=== PATIENT | female | born 1945 | race African-American/Black ===

== ENCOUNTER 2016-07-14 09:20 | Observation (INO) | payer MEDICARE, MEDICAID ==
[~2016-07-14] VITALS: Ht 160 cm; Wt 95.0 kg
[~2016-07-14 09:20] MED LIST: CARD360C PO; NAPR500 PO; NAPR500T PO; OMEP20TA PO; POTA-243 PO; POTA10CA PO; RISP0.5T28 SL; RISP2TAB2 PO; SIMV20TA PO; TAZT360C2 PO; TRIH2 PO; [UNRECOGNIZED DRUG - CODE] XX
[2016-07-14 09:22] VITALS: BP 135/69; PULSE 80; RESP 14; TEMP 98.1; O2SAT 96
[2016-07-14] MEDS ORDERED: SODIUM CHLOR 0.9% 1000 ML INJ 1,000 ML IV SCH (10:13)
[2016-07-14] MEDS ORDERED: SODIUM CHLORIDE 0.9% FLUSH 5 ML FLUSH IVF PRN (10:15)
--- NOTE | 2016-07-14 10:37 | RADRPT ---
EXAM DATE/TIME: 07/14/2016 10:34 [place] COMPARISON: No previous studies available for comparison. INDICATIONS : Vaginal and rectal bleeding. MEDICAL HISTORY : None. SURGICAL HISTORY : Cholecystectomy. ENCOUNTER: Initial ACUITY: 1 day PAIN SCORE: 0/10 LOCATION: Bilateral abdomen. FINDINGS: Supine view of the abdomen was performed. The abdominal bowel gas pattern is normal. There is stool in the colon. No abnormal dilatation is demonstrated. There are surgical clips in the right upper mariusz drant. There are calcified phleboliths deep in the pelvis.. The lung bases are clear. There is prima ry degenerative changes of the lumbar spine. CONCLUSION: Benign abdomen Tk Mattson MD on July 14, 2016 at 10:33 Board Certified Radiologist. This report was verified electronically.
[2016-07-14 10:52] LABS: HEMATOCRIT 29.6 % (35.0-46.0); MEAN CELL VOLUME 93.1 FL (80.0-100.0); MEAN CORPUSCULAR HEMOGLOBIN 30.8 PG (27.0-34.0); MEAN CORPUSCULAR HGB CONC 33.1 % (32.0-36.0); PLATELET COUNT 191 TH/MM3 (150-450); RED BLOOD COUNT 3.18 MIL/MM3 (4.00-5.30); RED CELL DISTRIBUTION WIDTH 13.6 % (11.6-17.2); REVIEW FLAG FINAL; WHITE BLOOD COUNT 4.8 TH/MM3 (4.0-11.0)
--- NOTE | 2016-07-14 10:54 | PD ---
HPI Chief Complaint: GI Complaint Time Seen by Provider: 10:13 Travel History International Travel<30 days: No Contact w/Intl Traveler<30days: No Traveled to known affect area: No History of Present Illness HPI 70-year-old female with a history of hypertension, hyperlipidemia, who presents today with complaints of vaginal bleeding and rectal bleeding since yesterday. The patient denies any previous history of such. She denies any abdominal pain. When asked about the blood, the patient reports it's dark red in color. The patient denies taking any blood thinners. She denies any shortness of breath, dizziness, lightheadedness. There are no other complaints at the time of my examination. PFSH Past Medical History Arthritis: Yes Anxiety: Yes Depression: No Heart Rhythm Problems: No Cancer: No Cardiovascular Problems: Yes High Cholesterol: Yes Chest Pain: No Congestive Heart Failure: No Cerebrovascular Accident: No Diminished Hearing: No Endocrine: No Gastrointestinal Disorders: Yes GERD: No Genitourinary: No Headaches: Yes Hiatal Hernia: No Hypertension: Yes Immune Disorder: No Musculoskeletal: Yes Neurologic: Yes Psychiatric: Yes Respiratory: No Migraines: No Seizures: No Ulcer: No Tetanus Vaccination: > 5 Years Influenza Vaccination: No ?: Not Menopausal: Yes Past Surgical History Cholecystectomy: Yes Other Surgery: No Social History Alcohol Use: No Tobacco Use: No Substance Use: No Allergies-Medications (Allergen,Severity, Reaction): Coded Allergies: Iodine (Verified Allergy, Mild, Swelling, 07/14/16) Reported Meds & Prescriptions Reported Meds & Active Scripts Active Omeprazole 20 Mg Tab 20 Mg PO DAILY Trihexyphenidyl (Trihexyphenidyl HCl) 2 Mg Tab 2 Mg PO TID Cardizem CD 24 HR (Diltiazem CD 24 HR) 360 Mg Caper 360 Mg PO DAILY Potassium Chloride ER (Potassium Chloride) 10 Meq Cap 10 Meq PO DAILY Simvastatin 20 Mg Tab 20 Mg PO DAILY Naproxen 500 Mg Tab 500 Mg PO BID PRN Risperdal M-Tab (Risperidone) 0.5 Mg Tab 0.5 Mg SL HS Review of Systems Except as stated in HPI: all other systems reviewed are Neg General / Constitutional: No: Fever, Chills Eyes: No: Blurred Vision HENT: No: Lightheadedness Cardiovascular: No: Chest Pain or Discomfort, Palpitations Respiratory: No: Shortness of Breath Gastrointestinal: Positive: Other, No: Nausea, Vomiting, Abdominal Pain Genitourinary: Positive: Vaginal Bleeding (reported dark red), No: Dysuria Musculoskeletal: No: Weakness, Pain Neurologic: No: Weakness, Headache Physical Exam Narrative GENERAL: Well-developed well-nourished female in no acute respiratory distress SKIN: Warm and dry. HEAD: Atraumatic. Normocephalic. EYES: No scleral icterus. No injection or drainage. ENT: No nasal bleeding or discharge. Mucous membranes pink and moist. NECK: Trachea midline. No JVD. CARDIOVASCULAR: Regular rate and rhythm. No murmur appreciated. RESPIRATORY: No accessory muscle use. Clear to auscultation. Breath sounds equal bilaterally. GASTROINTESTINAL: Abdomen soft, non-tender, nondistended. GENITOURINARY: MUSCULOSKELETAL: No obvious deformities. . Trace pretibial edema bilaterally. Patient reports this is chronic NEUROLOGICAL: Awake and alert. No obvious cranial nerve deficits. Motor grossly within normal limits. Normal speech. PSYCHIATRIC: Appropriate mood and affect; insight and judgment normal. Data Data Last Documented VS Vital Signs Date Time Temp Pulse Resp B/P Pulse Ox O2 Delivery O2 Flow Rate FiO2 07/14/16 13:18 73 18 137/73 99 Room Air 07/14/16 09:22 98.1 Orders Basic Metabolic Panel (Bmp) (07/14/16 10:13) Comprehensive Metabolic Panel (07/14/16 10:13) Prothrombin Time / Inr (Pt) (07/14/16 10:13) Act Partial Throm Time (Ptt) (07/14/16 10:13) Urinalysis - C+S If Indicated (07/14/16 10:13) Type And Screen (07/14/16 10:13) Abdomen, Kub Only (07/14/16 10:13) Ecg Monitoring (07/14/16 10:13) Iv Access Insert/Monitor (07/14/16 10:13) Oximetry (07/14/16 10:13) Sodium Chlor 0.9% 1000 Ml Inj (Ns 1000 M (07/14/16 10:13) Sodium Chloride 0.9% Flush (Ns Flush) (07/14/16 10:15) Cbc No Diff, Includes Plts (07/14/16 10:30) Place In Observation (07/14/16 ) Vital Signs (Adult) LARRY.QSHIFT (07/14/16 13:26) Activity/Adl Assessment PRN (07/14/16 13:26) Intake + Output LARRY.QSHIFT (07/14/16 13:26) Diet Npo (07/14/16 Lunch) Sodium Chlor 0.9% 1000 Ml Inj (Ns 1000 M (07/14/16 13:26) Sodium Chloride 0.9% Flush (Ns Flush) (07/14/16 13:30) Sodium Chloride 0.9% Flush (Ns Flush) (07/14/16 21:00) Ondansetron Inj (Zofran Inj) (07/14/16 13:30) Pantoprazole Inj (Protonix Inj) (07/14/16 13:30) Hgb & Hct (07/14/16 13:26) Hgb & Hct (07/14/16 21:26) Hgb & Hct (07/15/16 05:26) Hgb & Hct (07/15/16 13:26) Hgb & Hct (07/15/16 21:26) Hgb & Hct (07/16/16 05:26) Red Blood Cells (Rbc) (07/14/16 13:26) Basic Metabolic Panel (Bmp) (07/15/16 06:00) Consult Gastroenterology (07/14/16 ) Scd Bilateral/Knee High LARRY.BID (07/14/16 13:26) Pharmacologic Contraindication (07/14/16 13:26) ^ Other Nursing Orders (07/14/16 13:26) Labs Laboratory Tests Test 07/14/16 07/14/16 07/14/16 10:15 10:45 11:25 White Blood Count 4.8 TH/MM3 Red Blood Count 3.18 MIL/MM3 Hemoglobin 9.8 GM/DL Hematocrit 29.6 % Mean Corpuscular Volume 93.1 FL Mean Corpuscular Hemoglobin 30.8 PG Mean Corpuscular Hemoglobin 33.1 % Concent Red Cell Distribution Width 13.6 % Platelet Count 191 TH/MM3 Mean Platelet Volume 8.2 FL Sodium Level 144 MEQ/L Potassium Level 4.1 MEQ/L Chloride Level 113 MEQ/L Carbon Dioxide Level 25.6 MEQ/L Anion Gap 5 MEQ/L Blood Urea Nitrogen 20 MG/DL Creatinine 1.01 MG/DL Estimat Glomerular Filtration 65 ML/MIN Rate Random Glucose 90 MG/DL Calcium Level 8.7 MG/DL Total Bilirubin 0.3 MG/DL Aspartate Amino Transf 14 U/L (AST/SGOT) Alanine Aminotransferase 11 U/L (ALT/SGPT) Alkaline Phosphatase 63 U/L Total Protein 6.5 GM/DL Albumin 3.6 GM/DL Blood Type O POSITIVE Antibody Screen NEGATIVE Blood Bank Comment Urine Color YELLOW Urine Turbidity CLEAR Urine pH 5.0 Urine Specific [place] 1.023 Urine Protein NEG mg/dL Urine Glucose (UA) NEG mg/dL Urine Ketones NEG mg/dL Urine Occult Blood NEG Urine Nitrite NEG Urine Bilirubin NEG Urine Urobilinogen LESS THAN 2.0 MG/DL Urine Leukocyte Esterase NEG Urine RBC LESS THAN 1 /hpf Urine WBC 1 /hpf Urine Squamous Epithelial <1 /hpf Cells Urine Mucus FEW /lpf Microscopic Urinalysis Comment CULT NOT INDICATED Prothrombin Time 12.1 SEC Prothromb Time International 1.1 RATIO Ratio Activated Partial 24.5 SEC Thromboplast Time MDM Medical Decision Making Medical Screen Exam Complete: Yes Emergency Medical Condition: Yes Differential Diagnosis Upper versus lower GI bleed versus diarrhea versus Narrative Course 70-year-old female presents today with complaints of vaginal bleeding and rectal bleeding. Turns out that the patient is only bleeding from her rectum. There is no obvious vaginal bleeding on exam. The patient has obvious maroon- colored stools. She's been typed and screened. Her hemoglobin is 9.8. Patient was discussed with Dr. Wally Mata, on-call [facility] hospitalist , who agrees to admit the patient to his service. Diagnosis Primary Impression: Gastrointestinal bleeding, upper Additional Impression: Anemia Nahid Ruiz MD Jul 14, 2016 10:54
[2016-07-14 11:04] LABS: BLOOD, URINE NEG (NEG); COMMENT (UR) CULT NOT INDICATED; CULTURE IF INDICATED CULT NOT INDICATED; GLUCOSE,URINE NEG (NEG); KETONE, URINE NEG (NEG); MUCUS URINE FEW /lpf (OCC); NITRITE,URINE NEG (NEG); SQUAMOUS EPITHELIAL CELL URINE <1 /hpf (0-5); URINE COLOR YELLOW (YELLW/STRAW)
[2016-07-14 11:16] LABS: ALT (GPT) 11 U/L (10-53); ANION GAP 5 MEQ/L (5-15); AST (GOT) 14 U/L (15-37); BICARBONATE 25.6 MEQ/L (21.0-32.0); BLOOD UREA NITROGEN 20 MG/DL (7-18); CHLORIDE 113 MEQ/L (98-107); GLOMERULAR FILTRATION RATE 65 ML/MIN (>89); POTASSIUM 4.1 MEQ/L (3.5-5.1); SODIUM (NA) 144 MEQ/L (136-145)
[2016-07-14 11:18] LABS: ALKALINE PHOSPHATASE 63 U/L (45-117); TOTAL BILIRUBIN ADULT 0.3 MG/DL (0.2-1.0)
[2016-07-14 11:45] LABS: APTT (PATIENT) 24.5 SEC (24.3-30.1); INTERNATIONAL NORMALIZED RATIO 1.1 RATIO; PROTHROMBIN TIME - PATIENT 12.1 SEC (9.8-11.6)
[2016-07-14 12:58] VITALS: BP 157/74; PULSE 79; RESP 18; O2SAT 98
[2016-07-14 13:18] VITALS: BP 137/73; PULSE 73; RESP 18; O2SAT 99
[2016-07-14] MEDS ORDERED: SODIUM CHLORIDE 0.9% FLUSH 5 ML FLUSH IV PRN (13:30)
[2016-07-14] MEDS ORDERED: ONDANSETRON HCL 4 MG/2 ML VIAL IV PRN (13:30)
[2016-07-14] MEDS: SODIUM CHLOR 0.9% 1000 ML INJ 1,000 ML IV SCH (15:25)
[2016-07-14] MEDS: PANTOPRAZOLE SODIUM 40 MG VIAL IV SCH (15:26)
[2016-07-14 15:39] LABS: REVIEW FLAG FINAL
--- NOTE | 2016-07-14 15:44 | HHI.HP ---
[facility] No Primary Care Physician Admission Diagnosis Gi bleed, anemia , hx of ulcers, Diagnoses: Chief Complaint: I have blood in my stool Travel History International Travel<30 Days: No Contact w/Intl Traveler <30 Da: No Traveled to Known Affected Are: No History of Present Illness 70 years old female who presented to the ED with a 1 day complaining of rectal bleed, dark tarry with clots, patient denied having any previous history of GI bleed, no history of GI ulcers, she denied abdominal pain diarrhea or constipation, chest pain short of breath, headache or blurry vision, in the ED her hemoglobin was found to be 9.8, patient denied any family history of colon cancer. I got to see her stool which was black tarry liquidy Patient denied being on blood thinner but she takes BC powder excessively. Review of Systems All 10 systems reviewed and was positive for what is mentioned in history of present illness otherwise negative Past Family Social History Past Medical History Arthritis Coronary artery disease Headache Hypertension Past Surgical History Cholecystectomy Allergies: Coded Allergies: Iodine (Verified Allergy, Mild, Swelling, 07/14/16) Family History Reviewed patient Unaware of significant medical problem and her family Social History Denied tobacco alcohol or illicit drug abuse Physical Exam Vital Signs Vital Signs Date Time Temp Pulse Resp B/P Pulse Ox O2 Delivery O2 Flow Rate FiO2 07/14/16 13:18 73 18 137/73 99 Room Air 07/14/16 12:58 79 18 157/74 98 Room Air 07/14/16 09:22 98.1 80 14 135/69 96 Physical Exam GENERAL: This is a well-nourished, well-developed patient, in no apparent distress. SKIN: No rashes, warm and dry HEAD: Atraumatic. Normocephalic. EYES: Pupils equal round and reactive. Extraocular motions intact. No scleral icterus. ENT: Nose without bleeding, or drainage, Airway patent. NECK: Trachea midline. Supple CARDIOVASCULAR: Regular rate and rhythm without murmurs, gallops, or rubs. RESPIRATORY: Fair air entry bilaterally. No wheezes, rales, or rhonchi. GASTROINTESTINAL: Abdomen soft, non-tender, nondistended. Positive bowel sounds MUSCULOSKELETAL: Extremities without clubbing, cyanosis, or edema. Pedal pulses appreciated NEUROLOGICAL: Awake and alert. Moves all extremity. Normal speech.no focal neurological deficit Laboratory Laboratory Tests Test 07/14/16 07/14/16 07/14/16 07/14/16 10:15 10:45 11:25 13:35 White Blood Count 4.8 Red Blood Count 3.18 Hemoglobin 9.8 Hematocrit 29.6 Mean Corpuscular Volume 93.1 Mean Corpuscular Hemoglobin 30.8 Mean Corpuscular Hemoglobin 33.1 Concent Red Cell Distribution Width 13.6 Platelet Count 191 Mean Platelet Volume 8.2 Sodium Level 144 Potassium Level 4.1 Chloride Level 113 Carbon Dioxide Level 25.6 Anion Gap 5 Blood Urea Nitrogen 20 Creatinine 1.01 Estimat Glomerular Filtration 65 Rate Random Glucose 90 Calcium Level 8.7 Total Bilirubin 0.3 Aspartate Amino Transf 14 (AST/SGOT) Alanine Aminotransferase 11 (ALT/SGPT) Alkaline Phosphatase 63 Total Protein 6.5 Albumin 3.6 Blood Type O POSITIVE Antibody Screen NEGATIVE Blood Bank Comment Urine Color YELLOW Urine Turbidity CLEAR Urine pH 5.0 Urine Specific [place] 1.023 Urine Protein NEG Urine Glucose (UA) NEG Urine Ketones NEG Urine Occult Blood NEG Urine Nitrite NEG Urine Bilirubin NEG Urine Urobilinogen LESS THAN 2.0 Urine Leukocyte Esterase NEG Urine RBC LESS THAN 1 Urine WBC 1 Urine Squamous Epithelial <1 Cells Urine Mucus FEW Microscopic Urinalysis Comment CULT NOT INDICATED Prothrombin Time 12.1 Prothromb Time International 1.1 Ratio Activated Partial 24.5 Thromboplast Time Crossmatch Leukocyte-Reduced Red Blood Cells Test 07/14/16 15:15 Hemoglobin 9.0 Hematocrit 28.0 Result Diagram: 07/14/16 1515 07/14/16 1015 Imaging Last Impressions Abdomen X-Ray 07/14/16 1013 Signed Impressions: Service Date/Time: Thursday, July 14, 2016 10:34 - CONCLUSION: Benign abdomen Tk Mattson MD Assessment and Plan Assessment and Plan 70 years old female admitted with Acute rectal GIB Acute on chronic anemia hemoglobin 9.8 History of coronary artery disease Hypertension chronic essential History of chronic arthritis patient take BC powder DVT prophylaxis with SCD, chemical contraindication Plan: Admit for telemetry floor, iv fluid started Large-bore iv access Protonix iv started Serial H&H every 6 hours Type cross and match 2 units of PRBC if hemoglobin below 8, we need to aim for hemoglobin 10 with tenderness of coronary artery disease Consult GI Dr. Negron, appreciate his quick response, he examined the patient and decided on upper GI scope today this patient is nothing by mouth already Chemical DVT prophylaxis contraindication will apply SCD Resume her Cardizem with holding parameter Discussed Condition With Patient, ED physician GI Physician Certification 2 Midnight Certification Type: Admission for Inpatient Services Order for Inpatient Services The services are ordered in accordance with Medicare regulations or non- Medicare payer requirements, as applicable. In the case of services not specified as inpatient-only, they are appropriately provided as inpatient services in accordance with the 2-midnight benchmark. Estimated LOS (days): 2 days is the estimated time the patient will need to remain in the hospital, assuming treatment plan goals are met and no additional complications. Post-Hospital Plan: Not yet determined Wally Mata MD Jul 14, 2016 15:44
[2016-07-14 16:22] VITALS: BP 141/75
[2016-07-14] MEDS ORDERED: PROPOFOL 200 MG/20 ML AMP IV ONE (16:30)
--- NOTE | 2016-07-14 17:20 | MB ---
cc: TIMMY WEINBERG MD DATE OF CONSULTATION 07/14/16 1945 REASON FOR REFERRAL Anemia, GI bleed. HISTORY OF PRESENT ILLNESS Thank you for the consultation. A 70-year-old lady who has been doing okay until this morning when she started having significant bleeding rectally since yesterday, questionable vaginal bleed but mostly in the rectum. The patient denied any previous history. She has no abdominal pain. She takes BC powder excessively, according to her daughter. She had dark red color bloody stool. She denied any blood thinner, no other GI symptoms, never had any endoscopy or colonoscopy. She has some lightheadedness but no dizziness, no syncope PAST MEDICAL HISTORY 1. Arthritis, 2. Coronary artery disease. 3. Cholecystectomy. SOCIAL HISTORY No tobacco, drug or alcohol. ALLERGIES IODINE MEDICATIONS Reviewed in the chart. REVIEW OF SYSTEMS All 12-point point negative except HPI. PHYSICAL EXAMINATION GENERAL: Alert, oriented in no acute distress. VITAL SIGNS: Stable. HEENT: Pupils are round, reactive to light. NECK: Supple. CHEST: Clear to auscultation and percussion. CARDIAC: Regular rate and rhythm. ABDOMEN: Soft, morbid obesity. CYBER DEFENSE FORENSICS ANALYST: Vaginal bleeding. NEUROLOGIC: Stable. No focal abnormality. PSYCHIATRIC: Appropriate LABORATORY DATA White count 4.8, hemoglobin 9.8, platelets 191, INR 1.1, AST 14, ALT 11, BUN 20. Creatinine 1.01 IMAGING STUDIES KUB benign ASSESSMENT/PLAN A 70-year-old lady who has history of what looked like GI bleed and it could be a vaginal bleed also. The patient on heavy dose of BC powder. I need to do an upper endoscopy today on urgent basis to rule out peptic ulcer disease that is bleeding. I discussed with the patient the procedure and complication. If this is negative for any bleeding or ulcer, I would proceed to do flexible sigmoidoscopy to ensure that this is not old vaginal bleeding and that there is no lower GI bleed. Meanwhile, we will continue supportive care. Follow up H&H and give packed RBC as needed. MD ZAYRA Monet/ /3:34 PM /4:55 PM
[2016-07-14 17:42] VITALS: BP 135/60; PULSE 77; RESP 20; TEMP 96; O2SAT 96
[2016-07-14] MEDS ORDERED: PEG (High)/E-LYTE SOLN 4000 ML BTL PO ONE (18:00)
[2016-07-14] MEDS: SODIUM CHLORIDE 0.9% FLUSH 5 ML FLUSH IV SCH (20:44)
[2016-07-14 22:28] LABS: HEMATOCRIT 23.5 % (35.0-46.0); REVIEW FLAG FINAL
[2016-07-14 23:34] VITALS: BP 129/63; PULSE 78; RESP 18; TEMP 96.5; O2SAT 100
[2016-07-15] VITALS (13 sets, daily range): BP systolic 120–143; BP diastolic 58–69; PULSE 62–97; RESP 16–20; TEMP 96–98.8; O2SAT 96–100
[2016-07-15] MEDS: SODIUM CHLOR 0.9% 1000 ML INJ 1,000 ML IV SCH ×2 (03:45→16:06)
[2016-07-15 07:54] LABS: HEMATOCRIT 32.5 % (35.0-46.0); REVIEW FLAG FINAL
[2016-07-15 08:12] LABS: BICARBONATE 25.3 MEQ/L (21.0-32.0); POTASSIUM 4.2 MEQ/L (3.5-5.1)
[2016-07-15] MEDS: PRAVASTATIN SOD 40 MG TAB PO SCH (08:39)
[2016-07-15] MEDS: DILTIAZEM-CD 180 MG CAP ER PO SCH (08:39)
[2016-07-15] MEDS: PANTOPRAZOLE SODIUM 40 MG VIAL IV SCH (08:39)
[2016-07-15] MEDS: SODIUM CHLORIDE 0.9% FLUSH 5 ML FLUSH IV SCH ×2 (08:39→20:47)
--- NOTE | 2016-07-15 09:25 | HHI.PR ---
Subjective Remarks Follow up for GI bleeding. The patient reports feeling slightly better today but still she believes she still has some bleeding. MENU PLANNER at bedside just cleaned up the patient who states she had stools that were mixed clear and dark brown, looked like probable old blood, but no black or bright red stools. The patient denies any specific abdominal pains. Denies nausea/vomiting. Denies fevers/ chills. She admits to taking BC powder on a regular basis, discussed importance of stopping this medication. Objective Vitals Vital Signs Date Time Temp Pulse Resp B/P Pulse Ox O2 Delivery O2 Flow Rate FiO2 07/15/16 08:16 98.8 73 16 131/61 98 07/15/16 06:08 91 18 122/58 97 07/15/16 05:25 96.5 81 18 143/67 97 07/15/16 03:59 96.1 81 18 121/61 97 07/15/16 03:40 96.4 84 18 132/67 98 07/15/16 03:39 96.4 84 18 132/67 98 07/15/16 03:08 96.4 97 18 132/60 98 07/15/16 01:51 96.4 82 18 120/69 99 07/15/16 00:48 96.0 65 18 127/66 99 07/15/16 00:24 96.8 79 18 127/62 99 07/14/16 23:34 96.5 78 18 129/63 100 07/14/16 17:42 96.0 77 20 135/60 96 07/14/16 16:58 76 18 119/60 98 07/14/16 16:41 97.8 71 16 150/80 100 07/14/16 16:22 79 18 141/75 98 07/14/16 13:18 73 18 137/73 99 Room Air 07/14/16 12:58 79 18 157/74 98 Room Air 07/14/16 09:22 98.1 80 14 135/69 96 Result Diagram: 07/15/16 0742 07/15/16 0742 Imaging Last Impressions Abdomen X-Ray 07/14/16 1013 Signed Impressions: Service Date/Time: Thursday, July 14, 2016 10:34 - CONCLUSION: Benign abdomen Tk Mattson MD Objective Remarks GENERAL: Well-nourished, well-developed pleasant elderly female patient in [facility]. SKIN: Warm and dry. No rash. HEAD: Normocephalic. Atraumatic. EYES: Pupils equal and round. No scleral icterus. No injection or drainage. ENT: No nasal bleeding or discharge. Mucous membranes pink and moist. NECK: Supple. Trachea midline. CARDIOVASCULAR: Regular rate and rhythm. S1, S2 noted. No murmur appreciated. RESPIRATORY: No accessory muscle use. Clear to auscultation. Breath sounds equal bilaterally. GASTROINTESTINAL: Abdomen soft, non-tender, nondistended. Normoactive bowel sounds x4. MUSCULOSKELETAL: No obvious deformities. Extremities without clubbing, cyanosis , or edema. NEUROLOGICAL: Awake and alert. No obvious cranial nerve deficits. Motor grossly within normal limits. Normal speech. PSYCHIATRIC: Appropriate mood and affect; insight and judgment normal. Medications and IVs Current Medications Medications (Trade) Dose Ordered Sig/Drea Route Start Time Stop Time Status Last Admin (NS 1000 ml Inj) 1,000 ml @ 75 mls/hr [id number] IV 07/14/16 13:26 07/15/16 03:45 (NS Flush) 2 ml UNSCH PRN IV 07/14/16 13:30 (NS Flush) 2 ml BID IV 07/14/16 21:00 07/15/16 08:39 (Zofran Inj) 4 mg Q6H PRN IV 07/14/16 13:30 (Protonix Inj) 40 mg DAILY IV 07/14/16 13:30 07/15/16 08:39 (Cardizem Cd) 360 mg DAILY PO 07/15/16 09:00 07/15/16 08:39 (risperDAL M-TAB) 0.5 mg HS SL 07/14/16 21:00 07/14/16 20:54 (Pravachol) 40 mg DAILY PO 07/15/16 09:00 07/15/16 08:39 Urinary Catheter: No Vascular Central Line Catheter: No A/P Assessment and Plan 70-year-old female with history of CAD, HTN, headaches, arthritis, presents with rectal bleeding and dark tarry stools. GI bleeding: Likely secondary to BC powder use. Hemoglobin dropped from 9.8 to 7.7, s/p 2 units PRBC transfusion, hemoglobin now 10.8, continue to monitor H&H q8h. Transfuse if Hgb < 8.0. Give IV Protonix, IVF. GI consulted, emergent EGD and flex sigmoidoscopy 07/14 revealed gastritis, old blood in the colon, no active bleeding. Going for colonoscopy today. CAD/HTN/HLD: chronic, stable, continue patient's home meds including cardizem, statin. Arthritis: discussed discontinuing all NSAIDs. Outpatient f/up. DVT Prophylaxis: teds/SCDs. Avoid chemical prophylaxis with GI bleeding. Discussed with Dr. Bob. Discharge Planning Possible discharge today if colonoscopy unremarkable, Hgb stable, and patient tolerates oral intake. Attending Statement The exam, history, and the medical decision-making described in the above note were completed with the assistance of the mid-level provider. I reviewed and agree with the findings presented. I attest that I had a [id number] encounter with the patient on the same day, and personally performed and documented my assessment and findings in the medical record. Velma Hdez PA-C Jul 15, 2016 09:25 Elie Bob MD Jul 17, 2016 02:56
[2016-07-15] MEDS ORDERED: PROPOFOL 200 MG/20 ML AMP IV ONE (11:10)
[2016-07-15] MEDS ORDERED: ONDANSETRON HCL 4 MG/2 ML VIAL IV PUSH ONE (11:10)
[2016-07-15] MEDS ORDERED: EPINEPHrine HCL (1:10,000) 1 MG/10 ML SYRINGE SQ ONE (11:22)
[2016-07-15] MEDS ORDERED: DO NOT ADM ANY ANTICOAGULANT DRUGS XX PRN (11:35)
[2016-07-15 15:38] LABS: HEMATOCRIT 31.2 % (35.0-46.0); REVIEW FLAG FINAL
--- NOTE | 2016-07-15 19:31 | MR ---
cc: EUGENIO LAI M.D. DATE: 07/14/2016 DATE OF : 1945 PROCEDURE PERFORMED: Upper gastrointestinal endoscopy with biopsy and flexible sigmoidoscopy. ENDOSCOPIST: Eugenio Lai MD. INDICATIONS FOR THE PROCEDURE: 70-year-old lady who has bright red blood and dark blood per rectum. The patient take NSAIDS excessively. We need to do upper endoscopy for rule out peptic ulcer disease and a flexible sigmoidoscopy to document that she has rectal bleeding since she has also vaginal bleed. DESCRIPTION OF THE PROCEDURE IN DETAIL: After informing the patient about the procedure and complications, the consent was signed. The patient was placed on her left lateral decubitus. Adequate sedation was achieved by propofol. The scope was placed in the mouth advanced under video guidance to the second portion of the duodenum. The scope was drawn back to the stomach. Retroflexion was performed. Biopsy from antrum and lesser curve and then the scope drawn back without immediate complication. After that, a rectal exam was performed which was positive for blood. The scope was placed in the rectum, advanced under video guidance to the sigmoid. There was significant amount of bloody clots and bloody stool. I was not able to pass the scope beyond this point. The scope was drawn back without any immediate complication. FINDINGS: 1. Esophagus normal. 2. Stomach with minimal gastritis. Biopsy was done. 3. Duodenum normal. 4. No active bleeding from the upper GI tract. 5. The patient has significant blood in the stool, most likely either diverticular bleed or ischemia or other source such as malignancy. RECOMMENDATIONS: 1. Follow-up biopsy. 2. Prepare for colonoscopy tomorrow. 3. Watch for more bleeding. 4. Packed RBCs as needed. Thank you Dr. Mata for this referral. Eugenio Lai MD /LIVE /5:14 PM /7:23 PM
--- NOTE | 2016-07-15 21:59 | MR ---
cc: EUGENIO LAI MD DATE 07/15/13 [address] Fisher PROCEDURE Colonoscopy with bleeding control, ablation of bleeding diverticulum, clipping of bleeding diverticulum and injection. INDICATION A 70-year-old lady who has rectal bleeding, had upper endoscopy which was negative, has continued to bleed requiring blood transfusion PROCEDURE IN DETAIL After informing the patient about procedure and complication consent was signed. The patient was placed on her left lateral decubitus. Adequate sedation was achieved by propofol. Rectal exam was performed. Scope was placed in the rectum, advanced under video guidance to the cecum which was identified by the ileocecal valve and appendiceal orifice. The scope drawn back gradually and in the descending colon, there was a diverticulum which was actively bleeding. This was injected with 3 mL of epinephrine, did not stop the bleeding, cauterized gently with ablation with gold probe because take continued to bleed. Then I applied two clips and the bleeding stopped completely. The scope drawn back to the rectum. Retroflexion was performed then the scope drawn back without immediate complication. FINDINGS 1. Some blood throughout the colon, may obscure the vision or a small lesion. I tried to wash as much as possible. 2. Diffuse diverticulosis. 3. Active bleeding treated as above. RECOMMENDATIONS 1. Clear liquid. 2. CBC every 8 hours with packed RBC as needed. 3. If bleeding again, the patient will need angiogram with embolization. Eugenio Lai MD / /11:38 AM /9:44 PM
[2016-07-15 22:47] LABS: REVIEW FLAG FINAL
[2016-07-16 00:43] VITALS: BP 113/61; PULSE 58; RESP 20; TEMP 97.9; O2SAT 100
[2016-07-16] MEDS: SODIUM CHLOR 0.9% 1000 ML INJ 1,000 ML IV SCH (02:56)
[2016-07-16 04:31] VITALS: BP 155/65; PULSE 64; RESP 20; TEMP 97.6; O2SAT 98
[2016-07-16 08:10] LABS: HEMATOCRIT 29.2 % (35.0-46.0); REVIEW FLAG FINAL
[2016-07-16 08:12] VITALS: BP 118/65; PULSE 77; RESP 18; TEMP 97.6; O2SAT 92
--- NOTE | 2016-07-16 08:17 | HHI.PR ---
Subjective Remarks Follow up for GI bleeding. The patient s/p colonoscopy yesterday, revealed a bleeding diverticulum that was cauterized and clipped. The patient reports she has not had a BM or any more bleeding since her colonoscopy yesterday. She did have some lower abdominal cramping last night but that went away. Denies nausea/ vomiting. She tolerated her clear liquid diet last night. She has no other medical complaints at this time. Objective Vitals Vital Signs Date Time Temp Pulse Resp B/P Pulse Ox O2 Delivery O2 Flow Rate FiO2 07/16/16 04:31 97.6 64 20 155/65 98 07/16/16 00:43 97.9 58 20 113/61 100 07/15/16 20:40 98.2 70 20 128/64 100 07/15/16 16:00 98.5 70 16 131/62 100 07/15/16 12:20 98.7 62 16 140/63 96 07/15/16 12:00 128/72 Room Air 07/15/16 11:45 127/75 Nasal Cannula 2 07/15/16 11:35 98.6 66 14 122/75 99 Nasal Cannula 3 07/15/16 08:16 98.8 73 16 131/61 98 I/O 07/15/16 07/15/16 07/15/16 07/16/16 07/16/16 07/16/16 07:00 15:00 23:00 07:00 15:00 23:00 Intake Total 1160 ml Balance 1160 ml Intake Oral 10 ml IV Total 650 ml Other 500 ml # Voids 1 1 3 # Bowel Movements 1 Result Diagram: 07/16/16 0719 07/15/16 0742 Imaging Last Impressions Abdomen X-Ray 07/14/16 1013 Signed Impressions: Service Date/Time: Thursday, July 14, 2016 10:34 - CONCLUSION: Benign abdomen Tk Mattson MD Objective Remarks GENERAL: Well-nourished, well-developed pleasant elderly female patient in [facility]. SKIN: Warm and dry. No rash. HEENT: Normocephalic. Atraumatic. Pupils equal and round. No scleral icterus. No injection or drainage. Mucous membranes pink and moist. NECK: Supple. Trachea midline. CARDIOVASCULAR: Regular rate and rhythm. S1, S2 noted. No murmur appreciated. RESPIRATORY: No accessory muscle use. Clear to auscultation. Breath sounds equal bilaterally. GASTROINTESTINAL: Abdomen soft, non-tender, nondistended. Normoactive bowel sounds x4. MUSCULOSKELETAL: No obvious deformities. Extremities without clubbing, cyanosis , or edema. NEUROLOGICAL: Awake and alert. No obvious cranial nerve deficits. Motor grossly within normal limits. Normal speech. PSYCHIATRIC: Appropriate mood and affect; insight and judgment normal. Medications and IVs Current Medications Medications (Trade) Dose Ordered Sig/Drea Route Start Time Stop Time Status Last Admin (NS 1000 ml Inj) 1,000 ml @ 75 mls/hr [id number] IV 07/14/16 13:26 07/16/16 02:56 (NS Flush) 2 ml UNSCH PRN IV 07/14/16 13:30 (NS Flush) 2 ml BID IV 07/14/16 21:00 07/15/16 08:39 (Zofran Inj) 4 mg Q6H PRN IV 07/14/16 13:30 (Protonix Inj) 40 mg DAILY IV 07/14/16 13:30 07/15/16 08:39 (Cardizem Cd) 360 mg DAILY PO 07/15/16 09:00 07/15/16 08:39 (risperDAL M-TAB) 0.5 mg HS SL 07/14/16 21:00 07/15/16 20:51 (Pravachol) 40 mg DAILY PO 07/15/16 09:00 07/15/16 08:39 Miscellaneous Information ALL NURSING DEPARTME... UNSCH PRN XX 07/15/16 11:35 07/16/16 11:34 A/P Assessment and Plan 70-year-old female with history of CAD, HTN, headaches, arthritis, presents with rectal bleeding and dark tarry stools. GI bleeding: Likely secondary to BC powder use. Hemoglobin dropped from 9.8 to 7.7, s/p 2 units PRBC transfusion, rpt hemoglobin 10.8, continue to monitor H&H q8h. Transfuse if Hgb < 8.0. Give IV Protonix, IVF. GI consulted, emergent EGD and flex sigmoidoscopy 07/14 revealed gastritis, old blood in the colon, no active bleeding. Colonoscopy 07/15 revealed actively bleeding diverticulum that was cauterized and clipped with resolution of bleeding. Diet advanced to regular. GI cleared for discharge. CAD/HTN/HLD: chronic, stable, continue patient's home meds including cardizem, statin. Arthritis: discussed discontinuing all NSAIDs. Outpatient f/up. DVT Prophylaxis: teds/SCDs. Avoid chemical prophylaxis with GI bleeding. Discussed with Dr. Bob. Discharge Planning Discharge patient to home Condition on discharge: Improved Heart Healthy Diet as tolerated Ad Nivia activity Rx written: stop all NSAIDs (naproxen, BC powder) Follow-up with primary care physician and gastroenterology Attending Statement The exam, history, and the medical decision-making described in the above note were completed with the assistance of the mid-level provider. I reviewed and agree with the findings presented. I attest that I had a [id number] encounter with the patient on the same day, and personally performed and documented my assessment and findings in the medical record. Velma Hdez PA-C Jul 16, 2016 08:17 Elie Bob MD Jul 17, 2016 02:44
[2016-07-16 08:23] LABS: AUTOMATED NEUTROPHIL # 3.9 TH/MM3 (1.8-7.7); BASOPHIL # 0.1 TH/MM3 (0-0.2); BASOPHIL % 0.8 % (0.0-2.0); EOSINOPHIL # 0.1 TH/MM3 (0-0.4); EOSINOPHIL % 2.2 % (0.0-4.0); HEMATOCRIT 28.5 % (35.0-46.0); HEMO FLAGS DIFF FINAL; LYMPH % 27.7 % (9.0-44.0); LYMPHOCYTE # 1.8 TH/MM3 (1.0-4.8); MEAN CORPUSCULAR HEMOGLOBIN 31.1 PG (27.0-34.0); MEAN CORPUSCULAR HGB CONC 33.8 % (32.0-36.0); MONO % 7.9 % (0.0-8.0); NEUT % 61.4 % (16.0-70.0); PLATELET COUNT 144 TH/MM3 (150-450); RED CELL DISTRIBUTION WIDTH 15.4 % (11.6-17.2); WHITE BLOOD COUNT 6.3 TH/MM3 (4.0-11.0)
[2016-07-16 08:38] LABS: BICARBONATE 25.8 MEQ/L (21.0-32.0); POTASSIUM 3.7 MEQ/L (3.5-5.1)
[2016-07-16] MEDS: PANTOPRAZOLE SODIUM 40 MG VIAL IV SCH (08:47)
[2016-07-16] MEDS: SODIUM CHLORIDE 0.9% FLUSH 5 ML FLUSH IV SCH (08:47)
[2016-07-16] MEDS: DILTIAZEM-CD 180 MG CAP ER PO SCH (08:47)
[2016-07-16] MEDS: PRAVASTATIN SOD 40 MG TAB PO SCH (08:47)
--- NOTE | 2016-07-16 09:09 | HHI.GIFU ---
Subjective Remarks 70 yo female resting in bed comfortable, in no apparent distress. No rectal bleeding overnight per nurse. Objective Vitals I&O Vital Signs Date Time Temp Pulse Resp B/P Pulse Ox O2 Delivery O2 Flow Rate FiO2 07/16/16 08:12 97.6 77 18 118/65 92 07/16/16 04:31 97.6 64 20 155/65 98 07/16/16 00:43 97.9 58 20 113/61 100 07/15/16 20:40 98.2 70 20 128/64 100 07/15/16 16:00 98.5 70 16 131/62 100 07/15/16 12:20 98.7 62 16 140/63 96 07/15/16 12:00 128/72 Room Air 07/15/16 11:45 127/75 Nasal Cannula 2 07/15/16 11:35 98.6 66 14 122/75 99 Nasal Cannula 3 I/O 07/15/16 07/15/16 07/15/16 07/16/16 07/16/16 07/16/16 07:00 15:00 23:00 07:00 15:00 23:00 Intake Total 1160 ml Balance 1160 ml Intake Oral 10 ml IV Total 650 ml Other 500 ml # Voids 1 1 3 # Bowel Movements 1 Laboratory Laboratory Tests Test 07/15/16 07/15/16 07/16/16 07/16/16 15:11 22:37 07:19 08:05 Hemoglobin 10.4 9.1 9.5 9.6 Hematocrit 31.2 27.0 29.2 28.5 White Blood Count 6.3 Red Blood Count 3.10 Mean Corpuscular Volume 92.0 Mean Corpuscular Hemoglobin 31.1 Mean Corpuscular Hemoglobin 33.8 Concent Red Cell Distribution Width 15.4 Platelet Count 144 Mean Platelet Volume 7.8 Neutrophils (%) (Auto) 61.4 Lymphocytes (%) (Auto) 27.7 Monocytes (%) (Auto) 7.9 Eosinophils (%) (Auto) 2.2 Basophils (%) (Auto) 0.8 Neutrophils # (Auto) 3.9 Lymphocytes # (Auto) 1.8 Monocytes # (Auto) 0.5 Eosinophils # (Auto) 0.1 Basophils # (Auto) 0.1 CBC Comment DIFF FINAL Differential Comment Sodium Level 144 Potassium Level 3.7 Chloride Level 111 Carbon Dioxide Level 25.8 Anion Gap 7 Blood Urea Nitrogen 5 Creatinine 0.78 Estimat Glomerular Filtration 88 Rate Random Glucose 94 Calcium Level 8.0 Imaging Last Impressions Abdomen X-Ray 07/14/16 1013 Signed Impressions: Service Date/Time: Thursday, July 14, 2016 10:34 - CONCLUSION: Benign abdomen Tk Mattson MD Physical Exam HEENT: PERRLA Normocephalic; atraumatic; no jaundice. NECK: Neck is supple. Trachea midline. CHEST: CTA CARDIAC: RRR ABDOMEN: Soft, nondistended, nontender; no hepatosplenomegaly; Bowel sounds x4 quadrants EXTREMITIES: No edema. SKIN: Normal; no rash; no jaundice. NATUROPATHIC ONCOLOGY PROVIDER: A&O x 3. Assessment and Plan Plan ASSESSMENT -Diverticular bleed, s/p ablation and clipping of bleeding diverticulum and injection. No more rectal bleeding last night and today per nurse. Bleeding may be secondary to BC powder. Hemoglobin 9.6 and Hematocrit 28.5, which is stable. S/P 2 units PRBC transfusion yesterday. Transfuse if hemoglobin <8.0 Abdominal X -Ray 07/14/16-->Benign abdomen. PLAN -CBC q8h with packed RBC as needed -Advance diet as tolerated. -Cleared for discharge from a GI standpoint Patient seen and examined by Dr. Lai and myself and this note is written on his/her behalf. Abbey Taylor Jul 16, 2016 09:09
--- NOTE | 2016-07-16 09:54 | HHI.DCPOC ---
Discharge Care Plan Diagnosis: (1) GI bleeding Goals to Promote Your Health * To prevent worsening of your condition and complications * To maintain your health at the optimal level Directions to Meet Your Goals Take your medications as prescribed Follow your dietary instruction Follow activity as directed Keep your appointments as scheduled Take your immunizations and boosters as scheduled If your symptoms worsen call your PCP, if no PCP go to Urgent Care Center or Emergency Room Smoking is Dangerous to Your Health. Avoid second hand smoke Call the 24-hour hour crisis hotline for domestic abuse at Velma Hdez PA-C Jul 16, 2016 09:54
[2016-07-16 12:50] VITALS: BP 127/67; PULSE 56; RESP 18; TEMP 98.1; O2SAT 96
[2016-07-27] MEDS ORDERED: BATH/SHOWER SEA1 MI1 (13:28)
[2016-11-04] MEDS ORDERED: RISP0.5T28 SL (14:51)
== END 2016-07-16 16:16 | disposition home or self-care (01) ==
LOC: NEPE 09:20 → NEDA 13:42 → NEPGCP 17:06
PROVIDERS: ADMIT Internal Medicine; ATTEND Internal Medicine
DX: K57.91 Diverticulosis of intestine, part unspecified, without perforation or abscess with bleeding (principal); K29.70 Gastritis, unspecified, without bleeding; D64.9 Anemia, unspecified; N93.9 Abnormal uterine and vaginal bleeding, unspecified; I10 Essential (primary) hypertension; I25.10 Atherosclerotic heart disease of native coronary artery without angina pectoris; E78.5 Hyperlipidemia, unspecified
CPT/HCPCS: 00740; 00810; 36430; 43239; 45330; 45382; 45388; 45398; 74000; 80048; 80053; 81001; 85014; 85018; 85025; 85027; 85610; 85730; 86850; 86900; 86901; 86920; 88305; 88312; 96360; 99285; C9113; G0378; J0171; J2405; J7030; P9016

== ENCOUNTER 2016-11-27 08:16 | Emergency (ER) | payer MEDICARE, MEDICAID ==
[~2016-11-27] VITALS: Ht 165.1 cm; Wt 98.0 kg
[~2016-11-27 08:16] MED LIST changes: +BATH/SHOWER SEA1 MI1; -NAPR500 PO; -NAPR500T PO; -POTA-243 PO; -RISP2TAB2 PO; -TAZT360C2 PO; -[UNRECOGNIZED DRUG - CODE] XX
[2016-11-27 08:22] VITALS: BP 137/68; PULSE 72; RESP 17; TEMP 98.6; O2SAT 98
[2016-11-27] MEDS ORDERED: SODIUM CHLORIDE 0.9% FLUSH 10 ML FLUSH IVF PRN (08:30)
[2016-11-27 08:31] VITALS: RESP 16; O2SAT 98
[2016-11-27 08:58] LABS: AUTOMATED NEUTROPHIL # 2.6 TH/MM3 (1.8-7.7); BASOPHIL # 0.1 TH/MM3 (0-0.2); BASOPHIL % 1.1 % (0.0-2.0); EOSINOPHIL % 0.9 % (0.0-4.0); HEMO FLAGS DIFF FINAL; LYMPH % 31.6 % (9.0-44.0); LYMPHOCYTE # 1.4 TH/MM3 (1.0-4.8); MEAN CELL VOLUME 93.3 FL (80.0-100.0); MEAN CORPUSCULAR HEMOGLOBIN 29.4 PG (27.0-34.0); MEAN CORPUSCULAR HGB CONC 31.5 % (32.0-36.0); MONO % 8.6 % (0.0-8.0); NEUT % 57.8 % (16.0-70.0); PLATELET COUNT 216 TH/MM3 (150-450); RED BLOOD COUNT 3.75 MIL/MM3 (4.00-5.30); RED CELL DISTRIBUTION WIDTH 14.2 % (11.6-17.2); WHITE BLOOD COUNT 4.6 TH/MM3 (4.0-11.0)
--- NOTE | 2016-11-27 09:10 | PD ---
HPI Chief Complaint: Dizziness Time Seen by Provider: 09:06 Travel History International Travel<30 days: No Contact w/Intl Traveler<30days: No Traveled to known affect area: No History of Present Illness HPI 71-year-old female with history of hypertension, presents to the ER today with several days' history of fatigue and dizziness. She denies any chest pains, fevers, vomiting, diarrhea, abdominal pain, or any other symptoms. She states that she has noticed frequent urination in the last few days. Modifying Factors: None Associated Signs & Symptoms: Dizziness, frequent urination Risk Factors: None PFSH Past Medical History Arthritis: Yes Anxiety: Yes Depression: No Heart Rhythm Problems: No Cancer: No Cardiovascular Problems: Yes High Cholesterol: Yes Chest Pain: No Congestive Heart Failure: No Cerebrovascular Accident: No Diminished Hearing: No Endocrine: No Gastrointestinal Disorders: Yes GERD: No Genitourinary: No Headaches: Yes Hiatal Hernia: No Hypertension: Yes Immune Disorder: No Musculoskeletal: Yes Neurologic: Yes Psychiatric: Yes Respiratory: No Migraines: No Seizures: No Ulcer: No Tetanus Vaccination: > 5 Years Influenza Vaccination: No Menopausal: Yes Past Surgical History Cholecystectomy: Yes Other Surgery: Yes (gallbladder removal) Social History Alcohol Use: No (PT DENIES ) Tobacco Use: No Substance Use: No (PT DENIES) Allergies-Medications (Allergen,Severity, Reaction): Coded Allergies: Iodine (Verified Allergy, Mild, Swelling, 11/27/16) Reported Meds & Prescriptions Reported Meds & Active Scripts Active Risperdal M-Tab (Risperidone) 0.5 Mg Tab 0.5 Mg SL HS Omeprazole 20 Mg Tab 20 Mg PO DAILY Trihexyphenidyl (Trihexyphenidyl HCl) 2 Mg Tab 2 Mg PO TID Cardizem CD 24 HR (Diltiazem CD 24 HR) 360 Mg Caper 360 Mg PO DAILY Potassium Chloride ER (Potassium Chloride) 10 Meq Cap 10 Meq PO DAILY Simvastatin 20 Mg Tab 20 Mg PO DAILY Review of Systems Except as stated in HPI: all other systems reviewed are Neg Physical Exam Narrative GENERAL: Well-developed elderly -Stateless female patient currently in mild distress. Awake and oriented 3. Notable for mild tremulousness. SKIN: Focused skin assessment warm/dry. HEAD: Atraumatic. Normocephalic. EYES: Pupils equal and round. No scleral icterus. No injection or drainage. ENT: No nasal bleeding or discharge. Mucous membranes pink and moist. NECK: Trachea midline. No JVD. CARDIOVASCULAR: Regular rate and rhythm. No murmur appreciated. RESPIRATORY: No accessory muscle use. Clear to auscultation. Breath sounds equal bilaterally. GASTROINTESTINAL: Abdomen soft, non-tender, nondistended. Hepatic and splenic margins not palpable. MUSCULOSKELETAL: No obvious deformities. No clubbing. No cyanosis. No edema. NEUROLOGICAL: Awake and alert. No obvious cranial nerve deficits. Motor grossly within normal limits. Normal speech. PSYCHIATRIC: Appropriate mood and affect; insight and judgment normal. Data Data Last Documented VS Vital Signs Date Time Temp Pulse Resp B/P Pulse Ox O2 Delivery O2 Flow Rate FiO2 11/27/16 08:31 16 98 Room Air 11/27/16 08:25 72 11/27/16 08:22 98.6 137/68 Orders Electrocardiogram (11/27/16 ) Electrocardiogram (11/27/16 08:30) Complete Blood Count With Diff (11/27/16 08:30) Comprehensive Metabolic Panel (11/27/16 08:30) Ckmb (Isoenzyme) Profile (11/27/16 08:30) Troponin I (11/27/16 08:30) Urinalysis - C+S If Indicated (11/27/16 08:30) Ecg Monitoring (11/27/16 08:30) Iv Access Insert/Monitor (11/27/16 08:30) Oximetry (11/27/16 08:30) Sodium Chloride 0.9% Flush (Ns Flush) (11/27/16 08:30) Chest, Single Ap (11/27/16 09:06) Ct Brain W/O Iv Contrast(Rout) (11/27/16 09:06) Urine Culture (11/27/16 08:45) Sulfamet-Trimeth Ds 800-160 Mg (Bactrim (11/27/16 10:15) Labs Laboratory Tests Test 11/27/16 08:45 White Blood Count 4.6 TH/MM3 Red Blood Count 3.75 MIL/MM3 Hemoglobin 11.0 GM/DL Hematocrit 35.0 % Mean Corpuscular Volume 93.3 FL Mean Corpuscular Hemoglobin 29.4 PG Mean Corpuscular Hemoglobin 31.5 % Concent Red Cell Distribution Width 14.2 % Platelet Count 216 TH/MM3 Mean Platelet Volume 8.5 FL Neutrophils (%) (Auto) 57.8 % Lymphocytes (%) (Auto) 31.6 % Monocytes (%) (Auto) 8.6 % Eosinophils (%) (Auto) 0.9 % Basophils (%) (Auto) 1.1 % Neutrophils # (Auto) 2.6 TH/MM3 Lymphocytes # (Auto) 1.4 TH/MM3 Monocytes # (Auto) 0.4 TH/MM3 Eosinophils # (Auto) 0.0 TH/MM3 Basophils # (Auto) 0.1 TH/MM3 CBC Comment DIFF FINAL Differential Comment Urine Color YELLOW Urine Turbidity HAZY Urine pH 6.0 Urine Specific [place] 1.016 Urine Protein TRACE mg/dL Urine Glucose (UA) NEG mg/dL Urine Ketones NEG mg/dL Urine Occult Blood SMALL Urine Nitrite NEG Urine Bilirubin NEG Urine Urobilinogen LESS THAN 2.0 MG/DL Urine Leukocyte Esterase LARGE Urine RBC 5 /hpf Urine WBC 60 /hpf Urine Squamous Epithelial 17 /hpf Cells Urine Calcium Oxalate Crystals OCC /hpf Urine Bacteria MANY /hpf Urine Mucus FEW /lpf Microscopic Urinalysis Comment CULTURE INDICATED Sodium Level 143 MEQ/L Potassium Level 4.3 MEQ/L Chloride Level 109 MEQ/L Carbon Dioxide Level 27.7 MEQ/L Anion Gap 6 MEQ/L Blood Urea Nitrogen 18 MG/DL Creatinine 0.95 MG/DL Estimat Glomerular Filtration 70 ML/MIN Rate Random Glucose 96 MG/DL Calcium Level 8.6 MG/DL Total Bilirubin 0.4 MG/DL Aspartate Amino Transf 15 U/L (AST/SGOT) Alanine Aminotransferase 14 U/L (ALT/SGPT) Alkaline Phosphatase 74 U/L Total Creatine Kinase 89 U/L Troponin I LESS THAN 0.02 NG/ML Total Protein 6.6 GM/DL Albumin 3.3 GM/DL [facility] Medical Decision Making Medical Screen Exam Complete: Yes Emergency Medical Condition: Yes Medical Record Reviewed: Yes Interpretation(s) EKG shows NSR, no ST elevation or depression, and no arrhythmias. No significant T-wave inversions. Last [address] 11/27/16 0906 Signed Impressions: Service Date/Time: Sunday, November 27, 2016 09:38 - CONCLUSION: 1. No acute intracranial abnormality identified. 2. Mild cortical atrophy and microvascular ischemic demyelinative change. 3. Unchanged when compared to previous dated 03/05/16. Leonardo Shine MD Chest X-Ray 11/27/16 0906 Signed Impressions: Service Date/Time: Sunday, November 27, 2016 09:05 - CONCLUSION: 1. No acute cardiopulmonary findings. The heart is at the upper limits of normal in size. Leonardo Shine MD Laboratory Tests Test 11/27/16 08:45 Red Blood Count 3.75 MIL/MM3 (4.00-5.30) Hemoglobin 11.0 GM/DL (11.6-15.3) Mean Corpuscular Hemoglobin 31.5 % Concent (32.0-36.0) Monocytes (%) (Auto) 8.6 % (0.0-8.0) Urine Turbidity HAZY (CLEAR) Urine Occult Blood SMALL (NEG) Urine Leukocyte Esterase LARGE (NEG) Urine RBC 5 /hpf (0-3) Urine WBC 60 /hpf (0-5) Urine Calcium Oxalate Crystals OCC /hpf (NONE) Urine Bacteria MANY /hpf (NONE) Urine Mucus FEW /lpf (OCC) Chloride Level 109 MEQ/L (98-107) Estimat Glomerular Filtration 70 ML/MIN (>89) Rate Troponin I LESS THAN 0.02 NG/ML (0.02-0.05) Albumin 3.3 GM/DL (3.4-5.0) Differential Diagnosis Dizziness, urinary symptomsUTI versus sepsis versus metabolic issues versus dysrhythmias versus acute intracranial processes Narrative Course Patient has no focal neurological deficits. Lab work shows a significant UTI without signs of sepsis. At this point, I suspect that her UTI is causing some of her symptoms and my plan would be to treat her with antibiotics. She was given Bactrim in the ER and will be released with a prescription. She should follow-up with her primary care physician. Return for any worsening in symptoms as needed. Blood cultures are pending. The plan was discussed with the patient and her sister and they state understanding . Diagnosis Primary Impression: Weakness Additional Impression: UTI (urinary tract infection) Med/Other Pt SpecificInfo: Prescription(s) given Scripts Sulfamethoxazole-Trimethoprim (Bactrim DS)800-160 Mg Tab1 Tab PO BID #14 TAB Ref 0 Prov:Soni Rosario MD 11/27/16 Disposition: 01 DISCHARGE HOME Condition: Stable Soni Rosario MD Nov 27, 2016 09:10
[2016-11-27 09:14] LABS: ANION GAP 6 MEQ/L (5-15); AST (GOT) 15 U/L (15-37); BICARBONATE 27.7 MEQ/L (21.0-32.0); BLOOD UREA NITROGEN 18 MG/DL (7-18); CHLORIDE 109 MEQ/L (98-107); GLOMERULAR FILTRATION RATE 70 ML/MIN (>89); POTASSIUM 4.3 MEQ/L (3.5-5.1); SODIUM (NA) 143 MEQ/L (136-145)
[2016-11-27 09:15] LABS: ALT (GPT) 14 U/L (10-53)
[2016-11-27 09:18] LABS: ALKALINE PHOSPHATASE 74 U/L (45-117); TOTAL BILIRUBIN ADULT 0.4 MG/DL (0.2-1.0)
[2016-11-27 09:22] LABS: BACTERIA, URINE MANY /hpf; BLOOD, URINE SMALL (NEG); CALCIUM OXALATE CRYSTALS,URINE OCC /hpf; COMMENT (UR) CULTURE INDICATED; CULTURE IF INDICATED CULTURE INDICATED; GLUCOSE,URINE NEG (NEG); KETONE, URINE NEG (NEG); MUCUS URINE FEW /lpf (OCC); NITRITE,URINE NEG (NEG); SQUAMOUS EPITHELIAL CELL URINE 17 /hpf (0-5); URINE COLOR YELLOW (YELLW/STRAW)
[2016-11-27 09:27] LABS: CREATINE KINASE 89 U/L (26-192)
--- NOTE | 2016-11-27 09:41 | RADRPT ---
EXAM DATE/TIME: 11/27/2016 09:05 [facility] COMPARISON: CHEST SINGLE AP, March 05, 2016, 12:41. ABDOMEN KUB ONLY, July 14, 2016, 10:34. INDICATIONS : Dizzy. MEDICAL HISTORY : high blood pressure SURGICAL HISTORY : None. ENCOUNTER: Initial ACUITY: 1 day PAIN SCORE: 0/10 LOCATION: Bilateral chest FINDINGS: The heart is at the upper limits of normal in size. There is no significant hilar or mediastinal curly opathy. Lungs demonstrate chronic appearing interstitial changes but are otherwise clear. The visuali zed bony structures demonstrate degenerative changes within the left shoulder but are otherwise intac t. CONCLUSION: 1. No acute cardiopulmonary findings. The heart is at the upper limits of normal in size. Leonardo Shine MD on November 27, 2016 at 9:36 Board Certified Radiologist. This report was verified electronically.
--- NOTE | 2016-11-27 09:50 | RADRPT ---
EXAM DATE/TIME: 11/27/2016 09:38 [facility] COMPARISON: CT BRAIN W/O CONTRAST, March 05, 2016, 13:46. INDICATIONS : Dizziness RADIATION DOSE: 40.11 CTDIvol (mGy) MEDICAL HISTORY : Hypertension. Coronary artery disease. SURGICAL HISTORY : Cholecystectomy. ENCOUNTER: Initial ACUITY: 1 day PAIN SCALE: 0/10 LOCATION: cranial TECHNIQUE: Multiple contiguous axial images were obtained of the head. Using automated exposure control and adj ustment of the mA and/or kV according to patient size, radiation dose was kept as low as reasonably a chievable to obtain optimal diagnostic quality images. DICOM format image data is available electro nically for review and comparison. FINDINGS: CEREBRUM: The ventricles are at the upper limits of normal in size. Ventricular dilation appears in proportion to sulcal atrophy. There is decreased attenuation in the periventricular white matter most consistent with microvascular ischemic demyelinative change. No evidence of midline shift, mass lesion, hemorrh age or acute infarction. No extra-axial fluid collections are seen. POSTERIOR FOSSA: The cerebellum and brainstem are intact. The 4th ventricle is midline. The cerebellopontine angle i s unremarkable. EXTRACRANIAL: The visualized portion of the orbits is intact. SKULL: The calvaria is intact. No evidence of skull fracture. CONCLUSION: 1. No acute intracranial abnormality identified. 2. Mild cortical atrophy and microvascular ischemic demyelinative change. 3. Unchanged when compared to previous dated 03/05/16. Leonardo Shine MD on November 27, 2016 at 9:45 Board Certified Radiologist. This report was verified electronically.
[2016-11-27] MEDS ORDERED: BACT800T5 PO (10:05)
[2016-11-27] MEDS ORDERED: SULFAMETHOXAZOLE-TRIMETHOPRIM DS 800-160 MG TAB PO ONE (10:15)
[2016-11-27 10:17] VITALS: BP 130/76; TEMP 97.9
--- NOTE | 2016-11-27 13:22 | EKG ---
Date Performed: 11/27/2016 Time Performed: 08:47:57 PTAGE: 71 years EKG: Sinus rhythm NORMAL ECG Compared to prior tracing no significant change PREVIOUS TRACING : 03/05/2016 18.10 DOCTOR: Fransisco Briceño Interpretating Date/Time 11/27/2016 13:20:22
[2016-11-30] MEDS ORDERED: NAPR500T PO (15:35)
== END 2016-11-27 10:17 | disposition home or self-care (01) ==
LOC: NEPC 08:16
DX: R53.1 Weakness (principal); N39.0 Urinary tract infection, site not specified; R53.83 Other fatigue; R42 Dizziness and giddiness; R35.0 Frequency of micturition; I10 Essential (primary) hypertension; E78.00 Pure hypercholesterolemia, unspecified; F41.9 Anxiety disorder, unspecified; Z79.899 Other long term (current) drug therapy
CPT/HCPCS: 70450; 71010; 80053; 81001; 82550; 84484; 85025; 87086; 93005; 99285

== ENCOUNTER 2018-04-03 07:36 | Observation (INO) ==
[2018-04-03] MEDS ORDERED: Sod Chloride 0.9% Inj 1,000 ML IV.SIG ONE (08:12)
--- NOTE | 2018-04-03 08:20 | ED ---
HPI General Chief complaint: GI Bleed Stated complaint: Rectal bleeding Time Seen by Provider: 04/03/18 08:06 Source: patient Mode of arrival: EMS Limitations: no limitations History of Present Illness HPI Narrative: Patient is a pleasant 72-year-old -[place] female with past medical history of arthritis, coronary artery disease, headache, hypertension, cholecystectomy,who presents the emergency room with complaints of rectal bleeding. Patient reports that she was having a bowel movement today and began to have rectal bleeding. Patient reports that the blood is bright red but also dark in color. Reports that the blood is just leaking out of her rectum down her legs. Patient reports history of GI bleed in the past, reports that she had a colonoscopy 1 year ago which she does not remember the results of the colonoscopy. Patient reports that she does not follow-up with a sales relationship manager, patient currently is not taking any anticoagulants. Patient denies any abdominal pain, denies any nausea or vomiting or weakness. Patient reports that she feels fine except for this rectal bleeding. Related Data Home Medications Medication Instructions Recorded Confirmed potassium chloride 10 meq PO DAILY 04/03/18 04/03/18 risperidone 0.5 mg PO HS 04/03/18 04/03/18 trihexyphenidyl 2 mg PO TID 04/03/18 04/03/18 Allergies Allergy/AdvReac Type Severity Reaction Status Date / Time iodine Allergy Mild Swelling Verified 04/03/18 08:09 potassium iodide Allergy Mild Swelling Verified 04/03/18 08:09 povidone-iodine Allergy Mild Swelling Verified 04/03/18 08:09 sodium iodide Allergy Mild Swelling Verified 04/03/18 08:09 sodium iodide Allergy Mild Swelling Verified 04/03/18 08:09 Review of Systems ROS: all other systems reviewed are negative PMFSH History History Provided By: Patient Medical History Medical History Coronary artery disease (Acute) Depression (Acute) Tremor (Acute) Surgical History Surgical History No history of previous surgery (Acute) Social History Social History Second Hand Smoke Exposure: No Smoking Status: Never smoker How Often Do You Have a Drink Containing Alcohol: Never Recent Travel in [facility] within the Last 8 Weeks: No Recent Out of Country Travel within the Last 8 Weeks: No Exam Narrative Exam Narrative: GENERAL: Mild distress SKIN: Focused skin assessment warm/dry. HEAD: Atraumatic. Normocephalic. EYES: Pupils equal and round. No scleral icterus. No injection or drainage. ENT: No nasal bleeding or discharge. Mucous membranes pink and moist. NECK: Trachea midline. No JVD. CARDIOVASCULAR: Regular rate and rhythm. No murmur appreciated. RESPIRATORY: No accessory muscle use. Clear to auscultation. Breath sounds equal bilaterally. GASTROINTESTINAL: Abdomen soft, non-tender, nondistended. Hepatic and splenic margins not palpable. RECTAL EXAM: performed with RN at bedside - patient with grossly heme positive melanotic stool MUSCULOSKELETAL: No obvious deformities. No clubbing. No cyanosis. No edema. NEUROLOGICAL: Awake and alert. No obvious cranial nerve deficits. Motor grossly within normal limits. Normal speech. PSYCHIATRIC: Appropriate mood and affect; insight and judgment normal. Course Initial Documented Vital Signs Temperature 98.4 F 04/03/18 08:11 Pulse Rate 95 H 04/03/18 08:11 Respiratory Rate 16 04/03/18 08:11 Blood Pressure 144/80 H 04/03/18 08:11 Pulse Oximetry 97 04/03/18 08:11 Last Documented Vital Signs Temperature 98.4 F 04/03/18 08:11 Pulse Rate 86 04/03/18 11:00 Respiratory Rate 18 04/03/18 11:00 Blood Pressure 138/85 04/03/18 11:00 Pulse Oximetry 99 04/03/18 11:00 Medical Decision Making MDM Narrative Medical decision making narrative: During the course of the patients emergency department visit, the patients history, examination, and differential diagnosis were reviewed with the patient. The patient was placed on a laboratory monitor with oximetry and frequent blood pressure monitoring. The patient had an IV access obtained and blood work sent for analysis. The patient was initially provided IVF Patient with typed and screened given her rectal bleeding Previous records were reviewed, patient had an EGD as well as a flex sig by Dr. Lai on July 14, 2016. This showed a normal esophagus, stomach with minimal gastritis, duodenum was normal, there is no active bleeding from the upper GI tract. Patient also had a colonoscopy during that admission and was found to have a bleeding diverticulum that was cauterized and clips after she had a colonoscopy inpatient. Patient with most likely a bleeding diverticulum, CT of the abdomen pelvis without contrast ordered to evaluate for possible diverticulitis. Ultimately, patient will require admission to the hospital for further workup of her GI bleeding. The patients laboratory studies were reviewed and remarkable for hgb 10.7, repeat hgb 9.9 CT reviewed Patient require admission the hospital for workup of GI bleed with serial H&H' s. Case reviewed with Dr. sneed who accepts her to his service. Medical Screen Exam Complete: Yes Emergency Medical Condition: Yes Differential Diagnosis Differential Diagnosis: GI bleeding, gastric ulcer, bleeding diverticulum, diverticulitis, anemia, hemorrhoids Medical Records Medical records reviewed: Yes I reviewed the patient's medical records. Lab Data Lab results reviewed: Yes I reviewed the patient's lab results. Result diagrams: 04/03/18 11:20 04/03/18 08:30 Lab Results 04/03/18 04/03/18 04/03/18 Range/Units 08:30 08:30 08:30 WBC 5.9 (4.0-11.0) th/mm3 RBC 3.38 L (4.00-5.30) mil/mm3 Hgb 10.7 L (11.6-15.3) gm/dL Hct 33.8 L (35.0-46.0) % MCV 100.2 H (80.0-100.0) fL MCH 31.6 (27.0-34.0) pg MCHC 31.5 L (32.0-36.0) % RDW 14.8 (11.6-17.2) % Plt Count 200 (150-450) th/mm3 MPV 7.7 (7.0-11.0) fL Neut % (Auto) 59.8 (16.0-70.0) % Lymph % (Auto) 28.5 (9.0-44.0) % [place] % (Auto) 9.8 H (0.0-8.0) % Eos % (Auto) 1.1 (0.0-4.0) % Baso % (Auto) 0.8 (0.0-2.0) % Neut # (Auto) 3.5 (1.8-7.7) th/mm3 Lymph # (Auto) 1.7 (1.0-4.8) th/mm3 [place] # (Auto) 0.6 (0.0-0.9) th/mm3 Eos # (Auto) 0.1 (0.0-0.4) th/mm3 Baso # (Auto) 0.0 (0.0-0.2) th/mm3 WBC Differential . Differential Comment Auto diff final PT (9.8-11.6) sec INR Ratio APTT (23.4-31.7) sec Sodium 143 (136-145) meq/L Potassium 3.8 (3.5-5.1) meq/L Chloride 112 H (98-107) meq/L Carbon Dioxide 23.1 (21.0-32.0) meq/L Anion Gap 8 (5-15) meq/L BUN 17 (7-18) mg/dL Creatinine 0.95 (0.50-1.00) mg/dL Estimated GFR 70 L (>89) mL/min Random Glucose 99 (74-106) mg/dL Calcium 8.7 (8.5-10.1) mg/dL Total Bilirubin 0.4 (0.2-1.0) mg/dL AST 12 L (15-37) U/L ALT 13 (10-53) U/L Alkaline Phosphatase 79 (45-117) U/L Total Protein 6.9 (6.4-8.2) g/dL Albumin 3.4 (3.4-5.0) g/dL Blood Type O Positive Antibody Screen Negative 04/03/18 04/03/18 Range/Units 09:05 11:20 WBC (4.0-11.0) th/mm3 RBC (4.00-5.30) mil/mm3 Hgb 9.9 L (11.6-15.3) gm/dL Hct 31.1 L (35.0-46.0) % MCV (80.0-100.0) fL MCH (27.0-34.0) pg MCHC (32.0-36.0) % RDW (11.6-17.2) % Plt Count (150-450) th/mm3 MPV (7.0-11.0) fL Neut % (Auto) (16.0-70.0) % Lymph % (Auto) (9.0-44.0) % [place] % (Auto) (0.0-8.0) % Eos % (Auto) (0.0-4.0) % Baso % (Auto) (0.0-2.0) % Neut # (Auto) (1.8-7.7) th/mm3 Lymph # (Auto) (1.0-4.8) th/mm3 [place] # (Auto) (0.0-0.9) th/mm3 Eos # (Auto) (0.0-0.4) th/mm3 Baso # (Auto) (0.0-0.2) th/mm3 WBC Differential Differential Comment PT 11.4 (9.8-11.6) sec INR 1.1 Ratio APTT 27.1 (23.4-31.7) sec Sodium (136-145) meq/L Potassium (3.5-5.1) meq/L Chloride (98-107) meq/L Carbon Dioxide (21.0-32.0) meq/L Anion Gap (5-15) meq/L BUN (7-18) mg/dL Creatinine (0.50-1.00) mg/dL Estimated GFR (>89) mL/min Random Glucose (74-106) mg/dL Calcium (8.5-10.1) mg/dL Total Bilirubin (0.2-1.0) mg/dL AST (15-37) U/L ALT (10-53) U/L Alkaline Phosphatase (45-117) U/L Total Protein (6.4-8.2) g/dL Albumin (3.4-5.0) g/dL Blood Type Antibody Screen Imaging Data Attestation: I personally reviewed and interpreted this imaging study as follows : Radiologist's impression: Abdomen/Pelvis CT 04/03/18 08:12 CONCLUSION: 1. I do not see evidence for diverticulitis. 2. Do not see etiology for the bright red blood per rectum. 3. Large midline abdominal hernia containing bowel. Discharge Plan Discharge Disposition Patient Disposition: 30 Still Patient Discharge Condition Condition: Fair Discharge Details Diagnosis: Acute GI bleeding Physicians Team ED Provider: Guadalupe Brown Primary Care Provider: Gay Vo Rxs /Orders / Referrals /Forms Prescriptions: No Action potassium chloride 10 mEq Capsule, Extended Release 10 meq PO DAILY RF: 0 trihexyphenidyl 2 mg Tablet 2 mg PO TID RF: 0 risperidone 0.5 mg Tablet,Disintegrating 0.5 mg PO HS RF: 0 Discharge Interventions Interventions: Vital Signs Last Done: 04/03/18 11:00 Status ED Status: Pending Admission
[2018-04-03 08:43] LABS: Baso % (Auto) 0.8 % (0.0-2.0); Eos # (Auto) 0.1 th/mm3 (0.0-0.4); Eos % (Auto) 1.1 % (0.0-4.0); Hematocrit 33.8 % (35.0-46.0); Hemoglobin 10.7 gm/dL (11.6-15.3); Lymph # (Auto) 1.7 th/mm3 (1.0-4.8); Lymph % (Auto) 28.5 % (9.0-44.0); Mean Corpuscular HGB Conc 31.5 % (32.0-36.0); Mean Corpuscular Hemoglobin 31.6 pg (27.0-34.0); Mean Corpuscular Volume 100.2 fL (80.0-100.0); Mean Platelet Volume 7.7 fL (7.0-11.0); Mono # (Auto) 0.6 th/mm3 (0.0-0.9); Mono % (Auto) 9.8 % (0.0-8.0); Neut # (Auto) 3.5 th/mm3 (1.8-7.7); Neut % (Auto) 59.8 % (16.0-70.0); Platelet Count 200 th/mm3 (150-450); Red Blood Count 3.38 mil/mm3 (4.00-5.30); Red Cell Distribution Width 14.8 % (11.6-17.2); White Blood Count 5.9 th/mm3 (4.0-11.0)
[2018-04-03 09:09] LABS: Alanine Aminotransferase 13 U/L (10-53); Albumin 3.4 g/dL (3.4-5.0); Anion Gap 8 meq/L (5-15); Aspartate Aminotransferase 12 U/L (15-37); Blood Urea Nitrogen 17 mg/dL (7-18); Calcium 8.7 mg/dL (8.5-10.1); Carbon Dioxide 23.1 meq/L (21.0-32.0); Chloride 112 meq/L (98-107); Glomerular Filtration Rate 70 mL/min (>89); Glucose,Random 99 mg/dL (74-106); Potassium 3.8 meq/L (3.5-5.1); Sodium 143 meq/L (136-145)
[2018-04-03 09:12] LABS: Alkaline Phosphatase 79 U/L (45-117); Total Protein 6.9 g/dL (6.4-8.2)
[2018-04-03 09:40] LABS: Activated Partial Thrombo Time 27.1 sec (23.4-31.7); INR 1.1 Ratio
[2018-04-03 09:41] LABS: Prothrombin Time 11.4 sec (9.8-11.6)
[2018-04-03 11:37] LABS: Hematocrit 31.1 % (35.0-46.0); Hemoglobin 9.9 gm/dL (11.6-15.3)
--- NOTE | 2018-04-03 12:14 | CT ---
EXAM DATE: 04/03/2018 10:03 AM EST AGE/SEX: 72 years / Female INDICATIONS: Diverticulitis. Bright red blood from rectum. CLINICAL DATA: This is the patient's initial encounter. Patient reports that signs and symptoms have been present for 1 day and indicates a pain score of 0/10. MEDICAL/SURGICAL HISTORY: . Coronary artery disease. None. RADIATION DOSE: 16.48 CTDI (mGy) COMPARISON: [facility] [place], CT ABDOMEN & PELVIS W/O CONTRAST, 09/19/2014. . TECHNIQUE: Multiple contiguous axial images were obtained through the abdomen. Images were obtained using multiple row detector helical technique. Using automated exposure control and adjustment of the mA and/or kV according to patient size, radiation dose was kept as low as reasonably achievable to o btain optimal diagnostic quality images. DICOM format image data is available electronically for rev iew and comparison. FINDINGS: Minimal parenchymal changes both lung bases with mild cardiomegaly. The liver is free of focal defects. Gallbladder surgically absent. Spleen and pancreas are unremarkable. Both adrenal glands are prominent without mass The right and left kidneys unremarkable Large midline 6 cm abdominal hernia containing small bowel without signs of incarceration. The pelvis is a large fibroid uterus. There are minimal diverticuli in the sigmoid colon without dive rticulitis. Perirectal tissues are unremarkable There is no ascites or adenopathy Review of bone windows reveals only degenerative changes. CONCLUSION: 1. I do not see evidence for diverticulitis. 2. Do not see etiology for the bright red blood per rectum. 3. Large midline abdominal hernia containing bowel. Electronically signed by: Ray Shine MD 04/03/2018 12:13 PM EST
[2018-04-03] MEDS: Pantoprazole Inj 40 MG Vial IV.PUSH ONE ×2 (13:51→13:56)
[2018-04-03] MEDS: Pantoprazole Inj 80 MG in Sodium Chlor 0.9% Inj 100 ML IV.CONT SCH ×2 (13:55→23:50)
--- NOTE | 2018-04-03 14:29 | P.HP ---
History of Present Illness Primary Care Physician: Gay Vo MD, R2 Chief Complaint: Bright red blood per rectum History of Present Illness: 72-year-old -Thai female with a past medical history of hypertension , CAD, arthritis and currently taking naproxen presented to the ED for evaluation of an acute onset of bright red blood per rectum times several episode this morning. In the ED, patient continued to have multiple stool described as bright red blood per rectum. Patient states over the course of the past 3-4 days she has been taking more than the usual dose of naproxen secondary to knee and hip as well as back pain. She started taking 500 mg 3-4 times a day as opposed to twice daily. On admission H&H was 10.7/32.8. Patient was admitted back in June 2016 secondary to GI bleed for which gastroenterology was consulted and patient underwent emergent EGD followed by colonoscopy. Currently she reports some shortness of breath however denies any chest pain. She has no hematuria, hemoptysis or hematemesis. Review of Systems All other systems reviewed negative except as stated in HPI PMFSH - History History Provided By: Patient - Medical History Medical History: Medical History (Last Reviewed 04/03/18 @ 08:16 by Guadalupe Brown) Depression Tremor Coronary artery disease - Surgical History Surgical History: Surgical History (Last Reviewed 04/03/18 @ 08:16 by Guadalupe Brown) No history of previous surgery - Family History Family History: Family History (Last Updated 04/03/18 @ 14:29 by Calin Nichols MD) Other Breast cancer - Tobacco History Second Hand Smoke Exposure: No Smoking Status: Never smoker - Alcohol History How Often Do You Have a Drink Containing Alcohol: Never - Travel History Recent Travel in the [place] Within the Last 8 Weeks: No Recent Travel Out of the Country Within the Last 8 Weeks: No - Immunization History Tetanus Immunization: Unsure Medications and Allergies Active Medications: Active Medications Acetaminophen (Tylenol) 650 mg PO Q4H PRN PRN Reason: Temp > 100.4 Al Hydroxide/Mg Hydroxide (Milk Of Magnesia Liq) 30 ml PO Q12H PRN PRN Reason: Mild Constipation Pantoprazole Sodium 80 mg/ (Sodium Chloride) 100 mls @ 10 mls/hr IV.CONT CONT ANDREW Last Admin: 04/03/18 13:55 Dose: 10 mls/hr Ondansetron HCl (Zofran Inj) 4 mg IV.PUSH Q6H PRN PRN Reason: NAUSEA OR VOMITING Pantoprazole Sodium (Protonix Inj) 40 mg IV.PUSH BID [facility] Potassium Chloride (Kcl) 10 meq PO DAILY ANDREW Risperidone (Risperdal M-Tab) 0.5 mg PO HS [facility] Sennosides (Senokot) 17.2 mg PO Q12H PRN PRN Reason: Moderate Constipation Sodium Chloride (Ns Flush) 2 ml IV.FLUSH BID ANDREW Sodium Chloride (Ns Flush) 2 ml IV.FLUSH PRN PRN PRN Reason: FLUSH AFTER USING IV ACCESS Trihexyphenidyl HCl (Artane) 2 mg PO TID ANDREW Allergies Allergy/AdvReac Type Severity Reaction Status Date / Time iodine Allergy Mild Swelling Verified 04/03/18 08:09 potassium iodide Allergy Mild Swelling Verified 04/03/18 08:09 povidone-iodine Allergy Mild Swelling Verified 04/03/18 08:09 sodium iodide Allergy Mild Swelling Verified 04/03/18 08:09 sodium iodide Allergy Mild Swelling Verified 04/03/18 08:09 Home Medications Medication Instructions Recorded Confirmed Type potassium chloride 10 meq PO DAILY 04/03/18 04/03/18 History risperidone 0.5 mg PO HS 04/03/18 04/03/18 History trihexyphenidyl 2 mg PO TID 04/03/18 04/03/18 History Exam Vital signs: Vital Signs 04/03/18 08:11 04/03/18 08:19 04/03/18 09:56 Temperature 98.4 F Pulse Rate 95 H 80 86 Respiratory Rate 16 18 18 Blood Pressure 144/80 H 144/82 H 151/86 H Pulse Oximetry 97 97 100 04/03/18 11:00 04/03/18 13:00 04/03/18 13:07 Temperature Pulse Rate 86 80 Respiratory Rate 18 18 Blood Pressure 138/85 140/72 Pulse Oximetry 99 98 99 Intake & Output 04/02/18 04/03/18 04/03/18 18:59 06:59 18:59 Intake Total 1000 / 1000 Balance 1000 / 1000 Weight 97.522 kg Intake: IV 1000 / 1000 NS Inj 1,000 ML @ Wide Open IV. 1000 / 1000 SIG BOLUS ONE Rx#:[id number] Narrative: GENERAL: NAD SKIN: Warm and dry. HEAD: Atraumatic. Normocephalic. EYES: Pupils equal and round. No scleral icterus. No injection or drainage. ENT: No nasal bleeding or discharge. Mucous membranes pink and moist. NECK: Trachea midline. No JVD. CARDIOVASCULAR: Regular rate and rhythm. RESPIRATORY: No accessory muscle use. Clear to auscultation. Breath sounds equal bilaterally. GASTROINTESTINAL: Abdomen soft, non-tender, nondistended. Hepatic and splenic margins not palpable. MUSCULOSKELETAL: Extremities without clubbing, cyanosis, or edema. No obvious deformities. NEUROLOGICAL: Awake and alert. No obvious cranial nerve deficits. Motor grossly within normal limits. Five out of 5 muscle strength in the arms and legs. Normal speech. PSYCHIATRIC: Appropriate mood and affect; insight and judgment normal. Results - Labs CBC & Chem 7: 04/03/18 11:20 04/03/18 08:30 Labs: Laboratory Results - last 24 hr 04/03/18 04/03/18 04/03/18 08:30 08:30 08:30 WBC 5.9 RBC 3.38 L Hgb 10.7 L Hct 33.8 L MCV 100.2 H MCH 31.6 MCHC 31.5 L RDW 14.8 Plt Count 200 MPV 7.7 Neut % (Auto) 59.8 Lymph % (Auto) 28.5 [place] % (Auto) 9.8 H Eos % (Auto) 1.1 Baso % (Auto) 0.8 Neut # (Auto) 3.5 Lymph # (Auto) 1.7 [place] # (Auto) 0.6 Eos # (Auto) 0.1 Baso # (Auto) 0.0 WBC Differential . Differential Comment Auto diff final PT INR APTT Sodium 143 Potassium 3.8 Chloride 112 H Carbon Dioxide 23.1 Anion Gap 8 BUN 17 Creatinine 0.95 Estimated GFR 70 L Random Glucose 99 Calcium 8.7 Total Bilirubin 0.4 AST 12 L ALT 13 Alkaline Phosphatase 79 Total Protein 6.9 Albumin 3.4 Blood Type O Positive Antibody Screen Negative 04/03/18 04/03/18 09:05 11:20 WBC RBC Hgb 9.9 L Hct 31.1 L MCV MCH MCHC RDW Plt Count MPV Neut % (Auto) Lymph % (Auto) [place] % (Auto) Eos % (Auto) Baso % (Auto) Neut # (Auto) Lymph # (Auto) [place] # (Auto) Eos # (Auto) Baso # (Auto) WBC Differential Differential Comment PT 11.4 INR 1.1 APTT 27.1 Sodium Potassium Chloride Carbon Dioxide Anion Gap BUN Creatinine Estimated GFR Random Glucose Calcium Total Bilirubin AST ALT Alkaline Phosphatase Total Protein Albumin Blood Type Antibody Screen - Imaging Impressions Abdomen/Pelvis CT 04/03/18 08:12 CONCLUSION: 1. I do not see evidence for diverticulitis. 2. Do not see etiology for the bright red blood per rectum. 3. Large midline abdominal hernia containing bowel. Caprini VTE Risk Assessment Caprini VTE Risk Assessment: Moderate/High Risk (score >= 2) VTE Pharmacological Exception Reason: Postop bleeding, High risk for bleeding Caprini Risk Assessment Model: Point Value = 1 Point Value = 2 Point Value = 3 Point Value = 5 Age 41-60 Minor surgery BMI > 25 kg/m2 Swollen legs Varicose veins or History of unexplained or recurrent spontaneous Oral contraceptives or hormone replacement Sepsis (< 1 month) Serious lung disease, including pneumonia (< 1 month) Abnormal pulmonary function Acute myocardial infarction Congestive heart failure (< 1 month) History of inflammatory bowel disease Medical patient at bed rest Age 61-74 Arthroscopic surgery Major open surgery (> 45 min) Laparoscopic surgery (> 45 min) Malignancy Confined to bed (> 72 hours) Immobilizing plaster cast Central venous access Age >= 75 History of VTE Family history of VTE Factor V Leiden Prothrombin [id number] Lupus anticoagulant Anticardiolipin antibodies Elevated serum homocysteine Heparin-induced thrombocytopenia Other congenital or acquired thrombophilia Stroke (< 1 month) Elective arthroplasty Hip, pelvis, or leg fracture Acute spinal cord injury (< 1 month) Prophylaxis Regimen: Total Risk Factor Score Risk Level Prophylaxis Regimen 0-1 Low Early ambulation 2 Moderate Order ONE of the following: *Sequential Compression Device (SCD) *Heparin 5000 units SQ BID 3-4 Higher Order ONE of the following medications: *Heparin 5000 units SQ TID *Enoxaparin/Lovenox 40 mg SQ daily (WT < 150 kg, CrCl > 30 mL/min) *Enoxaparin/Lovenox 30 mg SQ daily (WT < 150 kg, CrCl > 10-29 mL/min) *Enoxaparin/Lovenox 30 mg SQ BID (WT < 150 kg, CrCl > 30 mL/min) AND/OR *Sequential Compression Device (SCD) 5 or more Highest Order ONE of the following medications: *Heparin 5000 units SQ TID (Preferred with Epidurals) *Enoxaparin/Lovenox 40 mg SQ daily (WT < 150 kg, CrCl > 30 mL/min) *Enoxaparin/Lovenox 30 mg SQ daily (WT < 150 kg, CrCl > 10-29 mL/min) *Enoxaparin/Lovenox 30 mg SQ BID (WT < 150 kg, CrCl > 30 mL/min) AND *Sequential Compression Device (SCD) Assessment and Plan - Plan 72-year-old female with Upper GI bleed Secondary to NSAID, which will hold and discontinue Gastroenterology consultation pending for evaluation for EGD +/-colonoscopy Start PPI 40 mg IV twice daily Serial H&H and transfuse accordingly History of hypertension, CAD, and other chronic medical conditions Resume outpatient medications DVT prophylaxis: Chemical anti-prophylaxis contraindicated, bilateral SCDs GI prophylaxis: PPI
--- NOTE | 2018-04-03 15:25 | P.CONGI ---
History of Present Illness Consult date: 04/03/18 Consult reason: GI bleed Chief complaint: Acute GI Bleed History of Present Illness: This is a 72-year-old female who came into the hospital on 04/03/2018 for evaluation of uncontrolled bright red rectal bleeding, constant basis initiated this a.m. patient notes history of constipation as well as some straining. She also notes increased naproxen use for her eyes and knee arthritic pain. No family history of colon cancer last EGD and colonoscopy done in June 2016 in the hospital setting, unknown findings current labs reviewed which showed initial hemoglobin 10.7 now 9.9, bilirubin and LFTs are normal, normal white count. CT scan shows no diverticulitis. Patient denies any nausea vomiting dyspepsia or dysphasia. Gastroenterology was consulted to assist with workup patient's currently being managed on a Protonix drip. <Gwendolyn Dominguez - Last Filed: 04/03/18 15:20> PMFSH - History History Provided By: Patient - Medical History Medical History: Medical History (Last Reviewed 04/03/18 @ 08:16 by Guadalupe Brown) Depression Tremor Coronary artery disease - Surgical History Surgical History: Surgical History (Last Reviewed 04/03/18 @ 08:16 by Guadalupe Brown) No history of previous surgery - Family History Family History: Family History (Last Updated 04/03/18 @ 14:29 by Calin Nichols MD) Other Breast cancer - Tobacco History Second Hand Smoke Exposure: No Tobacco Use In Past 30 Days: No Smoking Status: Never smoker Tobacco Type: Cigarettes - Alcohol History How Often Do You Have a Drink Containing Alcohol: Never - Substance Use History Substance History: No History of Abuse - Travel History Recent Travel in the [place] Within the Last 8 Weeks: No Recent Travel Out of the Country Within the Last 8 Weeks: No - Immunization History Tetanus Immunization: Unsure <Gwendolyn Dominguez - Last Filed: 04/03/18 15:20> - Medical History Medical History: Medical History (Last Reviewed 04/03/18 @ 08:16 by Guadalupe Brown) Depression Tremor Coronary artery disease - Surgical History Surgical History: Surgical History (Last Reviewed 04/03/18 @ 08:16 by Guadalupe Brown) No history of previous surgery - Family History Family History: Family History (Last Updated 04/03/18 @ 14:29 by Calin Nichols MD) Other Breast cancer <Genaro Laijessy - Last Filed: 04/03/18 20:44> Medications and Allergies Active Medications: Active Medications Acetaminophen (Tylenol) 650 mg PO Q4H PRN PRN Reason: Temp > 100.4 Al Hydroxide/Mg Hydroxide (Milk Of Magnesia Liq) 30 ml PO Q12H PRN PRN Reason: Mild Constipation Pantoprazole Sodium 80 mg/ (Sodium Chloride) 100 mls @ 10 mls/hr IV.CONT CONT [facility] Last Admin: 04/03/18 13:55 Dose: 10 mls/hr Ondansetron HCl (Zofran Inj) 4 mg IV.PUSH Q6H PRN PRN Reason: NAUSEA OR VOMITING Pantoprazole Sodium (Protonix Inj) 40 mg IV.PUSH BID ANDREW Potassium Chloride (Kcl) 10 meq PO DAILY ANDREW Risperidone (Risperdal M-Tab) 0.5 mg PO HS [facility] Sennosides (Senokot) 17.2 mg PO Q12H PRN PRN Reason: Moderate Constipation Sodium Chloride (Ns Flush) 2 ml IV.FLUSH BID ANDREW Sodium Chloride (Ns Flush) 2 ml IV.FLUSH PRN PRN PRN Reason: FLUSH AFTER USING IV ACCESS Trihexyphenidyl HCl (Artane) 2 mg PO TID [facility] <Gwendolyn Dominguez - Last Filed: 04/03/18 15:20> Active Medications: Active Medications Acetaminophen (Tylenol) 650 mg PO Q4H PRN PRN Reason: Temp > 100.4 Al Hydroxide/Mg Hydroxide (Milk Of Magnesia Liq) 30 ml PO Q12H PRN PRN Reason: Mild Constipation Pantoprazole Sodium 80 mg/ (Sodium Chloride) 100 mls @ 10 mls/hr IV.CONT CONT [facility] Last Admin: 04/03/18 13:55 Dose: 10 mls/hr Lactated Ringer's (Lr 1000 Ml Inj) 1,000 mls @ 30 mls/hr IV.SIG .Q24H [facility] Stop: 04/04/18 18:59 Sodium Chloride (Ns Inj) 500 mls @ 30 mls/hr IV.SIG .[id number] [facility] Stop: 04/04/18 11:39 Ondansetron HCl (Zofran Inj) 4 mg IV.PUSH Q6H PRN PRN Reason: NAUSEA OR VOMITING Pantoprazole Sodium (Protonix Inj) 40 mg IV.PUSH BID [facility] Potassium Chloride (Kcl) 10 meq PO DAILY [facility] Risperidone (Risperdal M-Tab) 0.5 mg PO HS [facility] Sennosides (Senokot) 17.2 mg PO Q12H PRN PRN Reason: Moderate Constipation Sodium Chloride (Ns Flush) 2 ml IV.FLUSH BID [facility] Sodium Chloride (Ns Flush) 2 ml IV.FLUSH PRN PRN PRN Reason: FLUSH AFTER USING IV ACCESS Trihexyphenidyl HCl (Artane) 2 mg PO TID ANDREW <HemaidjerseyAmmar - Last Filed: 04/03/18 20:44> Allergies Allergy/AdvReac Type Severity Reaction Status Date / Time iodine Allergy Mild Swelling Verified 04/03/18 08:09 potassium iodide Allergy Mild Swelling Verified 04/03/18 08:09 povidone-iodine Allergy Mild Swelling Verified 04/03/18 08:09 sodium iodide Allergy Mild Swelling Verified 04/03/18 08:09 sodium iodide Allergy Mild Swelling Verified 04/03/18 08:09 Home Medications Medication Instructions Recorded Confirmed Type potassium chloride 10 meq PO DAILY 04/03/18 04/03/18 History risperidone 0.5 mg PO HS 04/03/18 04/03/18 History trihexyphenidyl 2 mg PO TID 04/03/18 04/03/18 History Exam Vital signs: Vital Signs 04/03/18 08:11 04/03/18 08:19 04/03/18 09:56 Temperature 98.4 F Pulse Rate 95 H 80 86 Respiratory Rate 16 18 18 Blood Pressure 144/80 H 144/82 H 151/86 H Pulse Oximetry 97 97 100 04/03/18 11:00 04/03/18 13:00 04/03/18 13:07 Temperature Pulse Rate 86 80 Respiratory Rate 18 18 Blood Pressure 138/85 140/72 Pulse Oximetry 99 98 99 Intake & Output 04/02/18 04/03/18 04/03/18 18:59 06:59 18:59 Intake Total 1000 / 1000 Balance 1000 / 1000 Weight 97.069 kg Intake: IV 1000 / 1000 NS Inj 1,000 ML @ Wide Open IV. 1000 / 1000 SIG BOLUS ONE Rx#:[id number] Other: Weight On Admission 97.069 kg <Gwendolyn Dominguez - Last Filed: 04/03/18 15:20> Vital signs: Vital Signs 04/03/18 08:11 04/03/18 08:19 04/03/18 09:56 Temperature 98.4 F Pulse Rate 95 H 80 86 Respiratory Rate 16 18 18 Blood Pressure 144/80 H 144/82 H 151/86 H Pulse Oximetry 97 97 100 04/03/18 11:00 04/03/18 13:00 04/03/18 13:07 Temperature Pulse Rate 86 80 Respiratory Rate 18 18 Blood Pressure 138/85 140/72 Pulse Oximetry 99 98 99 04/03/18 16:00 04/03/18 19:00 04/03/18 20:00 Temperature 98.3 F 98.4 F Pulse Rate 88 85 Respiratory Rate 20 20 Blood Pressure 142/79 H 134/78 Pulse Oximetry 99 98 98 Intake & Output 04/03/18 04/03/18 04/04/18 06:59 18:59 06:59 Intake Total 1000 / 1000 Balance 1000 / 1000 Weight 97.069 kg Intake: IV 1000 / 1000 NS Inj 1,000 ML @ Wide Open IV. 1000 / 1000 SIG BOLUS ONE Rx#:[id number] Other: # Incontinent Voids 2 Date of Last Bowel Movement 04/03/18 Weight On Admission 97.069 kg <StanleyEugenio fairchild - Last Filed: 04/03/18 20:44> Results - Labs CBC & Chem 7: 04/03/18 11:20 04/03/18 08:30 Labs: Laboratory Results - last 24 hr 04/03/18 04/03/18 04/03/18 08:30 08:30 08:30 WBC 5.9 RBC 3.38 L Hgb 10.7 L Hct 33.8 L MCV 100.2 H MCH 31.6 MCHC 31.5 L RDW 14.8 Plt Count 200 MPV 7.7 Neut % (Auto) 59.8 Lymph % (Auto) 28.5 [place] % (Auto) 9.8 H Eos % (Auto) 1.1 Baso % (Auto) 0.8 Neut # (Auto) 3.5 Lymph # (Auto) 1.7 [place] # (Auto) 0.6 Eos # (Auto) 0.1 Baso # (Auto) 0.0 WBC Differential . Differential Comment Auto diff final PT INR APTT Sodium 143 Potassium 3.8 Chloride 112 H Carbon Dioxide 23.1 Anion Gap 8 BUN 17 Creatinine 0.95 Estimated GFR 70 L Random Glucose 99 Calcium 8.7 Total Bilirubin 0.4 AST 12 L ALT 13 Alkaline Phosphatase 79 Total Protein 6.9 Albumin 3.4 Blood Type O Positive Antibody Screen Negative 04/03/18 04/03/18 09:05 11:20 WBC RBC Hgb 9.9 L Hct 31.1 L MCV MCH MCHC RDW Plt Count MPV Neut % (Auto) Lymph % (Auto) [place] % (Auto) Eos % (Auto) Baso % (Auto) Neut # (Auto) Lymph # (Auto) [place] # (Auto) Eos # (Auto) Baso # (Auto) WBC Differential Differential Comment PT 11.4 INR 1.1 APTT 27.1 Sodium Potassium Chloride Carbon Dioxide Anion Gap BUN Creatinine Estimated GFR Random Glucose Calcium Total Bilirubin AST ALT Alkaline Phosphatase Total Protein Albumin Blood Type Antibody Screen - Imaging Impressions Abdomen/Pelvis CT 04/03/18 08:12 CONCLUSION: 1. I do not see evidence for diverticulitis. 2. Do not see etiology for the bright red blood per rectum. 3. Large midline abdominal hernia containing bowel. <Gwendolyn Dominguez - Last Filed: 04/03/18 15:20> - Labs CBC & Chem 7: 04/03/18 19:44 04/03/18 08:30 Labs: Laboratory Results - last 24 hr 04/03/18 04/03/18 04/03/18 08:30 08:30 08:30 WBC 5.9 RBC 3.38 L Hgb 10.7 L Hct 33.8 L MCV 100.2 H MCH 31.6 MCHC 31.5 L RDW 14.8 Plt Count 200 MPV 7.7 Neut % (Auto) 59.8 Lymph % (Auto) 28.5 [place] % (Auto) 9.8 H Eos % (Auto) 1.1 Baso % (Auto) 0.8 Neut # (Auto) 3.5 Lymph # (Auto) 1.7 [place] # (Auto) 0.6 Eos # (Auto) 0.1 Baso # (Auto) 0.0 WBC Differential . Differential Comment Auto diff final PT INR APTT Sodium 143 Potassium 3.8 Chloride 112 H Carbon Dioxide 23.1 Anion Gap 8 BUN 17 Creatinine 0.95 Estimated GFR 70 L Random Glucose 99 Calcium 8.7 Total Bilirubin 0.4 AST 12 L ALT 13 Alkaline Phosphatase 79 Total Protein 6.9 Albumin 3.4 Blood Type O Positive Antibody Screen Negative 04/03/18 04/03/18 04/03/18 09:05 11:20 19:44 WBC RBC Hgb 9.9 L 9.5 L Hct 31.1 L 29.2 L MCV MCH MCHC RDW Plt Count MPV Neut % (Auto) Lymph % (Auto) [place] % (Auto) Eos % (Auto) Baso % (Auto) Neut # (Auto) Lymph # (Auto) [place] # (Auto) Eos # (Auto) Baso # (Auto) WBC Differential Differential Comment PT 11.4 INR 1.1 APTT 27.1 Sodium Potassium Chloride Carbon Dioxide Anion Gap BUN Creatinine Estimated GFR Random Glucose Calcium Total Bilirubin AST ALT Alkaline Phosphatase Total Protein Albumin Blood Type Antibody Screen - Imaging Impressions Abdomen/Pelvis CT 04/03/18 08:12 CONCLUSION: 1. I do not see evidence for diverticulitis. 2. Do not see etiology for the bright red blood per rectum. 3. Large midline abdominal hernia containing bowel. <Eugenio Lai - Last Filed: 04/03/18 20:44> Assessment and Plan - Plan 72-year-old female who came into the hospital on 04/03/2018 for evaluation of uncontrolled bright red rectal bleeding, constant basis initiated this a.m. patient notes history of constipation as well as some straining. She also notes increased naproxen use for her eyes and knee arthritic pain. No family history of colon cancer last EGD and colonoscopy done in June 2016 in the hospital setting, unknown findings current labs reviewed which showed initial hemoglobin 10.7 now 9.9, bilirubin and LFTs are normal, normal white count. CT scan shows no diverticulitis. Patient denies any nausea vomiting dyspepsia or dysphasia. Gastroenterology was consulted to assist with workup patient's currently being managed on a Protonix drip. Bright red rectal bleeding possibly related to hemorrhoids lower GI bleed Anemia could be acute or chronic disease related Diverticulosis but no diverticulitis noted History of constipation History of NSAID use Plan Diet clear liquids today Consent for colonoscopy in a.m. with possible IRC Prep will initiate GoLYTELY but if patient is unable to tolerate will need subset enemas x2, explained to patient Monitor labs with special attention hemoglobin and transfuse as needed No NSAIDs N.p.o. at midnight Further recommendations to follow Patient was seen per myself and Dr. Lai, note was written <Gwendolyn Dominguez - Last Filed: 04/03/18 15:20> - Plan ` Agree with above note and plan, plan on colonoscopy tomorrow <Eugenio Lai - Last Filed: 04/03/18 20:44>
[2018-04-03] MEDS ORDERED: PEG 3350/E-Lyte Soln 4000 ML Bottle PO ONE (16:00)
[2018-04-03] MEDS ORDERED: Chlorhexidine Gluconate 2% 1 Pack (2 Cloths) TOPICAL ONE (18:51)
[2018-04-03] MEDS ORDERED: Metoprolol Tartrate 25 MG Tablet PO ONE (18:51)
[2018-04-03] MEDS ORDERED: Sodium Chlor 0.9% Inj 500 ML IV.SIG SCH (19:00)
[2018-04-03 19:57] LABS: Hematocrit 29.2 % (35.0-46.0); Hemoglobin 9.5 gm/dL (11.6-15.3)
[2018-04-03] MEDS: Pantoprazole Inj 40 MG Vial IV.PUSH SCH (21:03)
[2018-04-03] MEDS: risperiDONE 0.5 MG ODT PO SCH (23:09)
[2018-04-04 09:01] LABS: Baso # (Auto) 0.1 th/mm3 (0.0-0.2); Baso % (Auto) 1.3 % (0.0-2.0); Eos # (Auto) 0.1 th/mm3 (0.0-0.4); Hematocrit 27.5 % (35.0-46.0); Hemoglobin 9.1 gm/dL (11.6-15.3); Lymph # (Auto) 1.4 th/mm3 (1.0-4.8); Lymph % (Auto) 30.1 % (9.0-44.0); Mean Corpuscular HGB Conc 33.2 % (32.0-36.0); Mean Corpuscular Hemoglobin 31.5 pg (27.0-34.0); Mean Corpuscular Volume 94.7 fL (80.0-100.0); Mono # (Auto) 0.5 th/mm3 (0.0-0.9); Mono % (Auto) 10.4 % (0.0-8.0); Neut # (Auto) 2.6 th/mm3 (1.8-7.7); Neut % (Auto) 55.2 % (16.0-70.0); Platelet Count 209 th/mm3 (150-450); White Blood Count 4.8 th/mm3 (4.0-11.0)
[2018-04-04] MEDS: Potassium Chloride 10 MEQ ER Capsule PO SCH (09:23)
[2018-04-04] MEDS: Pantoprazole Inj 40 MG Vial IV.PUSH SCH ×2 (09:23→21:07)
[2018-04-04 09:30] LABS: Albumin 3.2 g/dL (3.4-5.0); Anion Gap 10 meq/L (5-15); Aspartate Aminotransferase 16 U/L (15-37); Blood Urea Nitrogen 10 mg/dL (7-18); Calcium 8.2 mg/dL (8.5-10.1); Carbon Dioxide 24.4 meq/L (21.0-32.0); Chloride 111 meq/L (98-107); Glomerular Filtration Rate 82 mL/min (>89); Potassium 3.8 meq/L (3.5-5.1); Sodium 145 meq/L (136-145)
[2018-04-04 09:31] LABS: Glucose,Random 92 mg/dL (74-106)
[2018-04-04 09:36] LABS: Alanine Aminotransferase 11 U/L (10-53); Alkaline Phosphatase 68 U/L (45-117); Total Protein 6.4 g/dL (6.4-8.2)
[2018-04-04] MEDS ORDERED: Lidocaine PF 1% Inj 5 ML Syringe OTHER ONE (10:30)
--- NOTE | 2018-04-04 11:15 | P.PCN ---
Date of procedure: 04/04/18 Procedure: THANK YOU FOR THE REFERRAL Indication; anemia, bright red blood per rectum Procedure Performed; upper endoscopy: With dilation of esophageal ring Colonoscopy: With ablation of colon polyps [ ] After informing the patient about procedure and possible complications consent was signed. history and physical were updated. Patient was taken to the procedure room and placed in position. Time out was completed. Adequate sedation was performed by anesthesia provider. Upper Endoscopy, the scope was placed in the mouth advanced under video guide to the second portion of the duodenum, then the scope was withdrawal to the stomach and retro-flexion was performed, the scope was withdrawal to the esophagus then out of the mouth without any immediate complication Colonoscopy, rectal exam was performed the scope was placed in the rectum advanced under video guide to the cecum which was identified by ileo-cecal valve and appendiceal orifice, then the scope withdrawal slowly with examination of the mucosa to the rectum and retro-flexion was performed, the scope was withdrawal without any immediate complication Findings; colonoscopy, prep fair, some stool may interfere with division of small lesion. 3 polyps in the sigmoid ablated with heat, significant diverticular disease throughout the colon, most likely the source of bleeding, no active bleeding at this time Rectum: Small hemorrhoid Esophagus: Esophageal ring status post dilation with savory guidewire size 17 mm Stomach: Normal Duodenum: [ ] Recommendations; 1- Supportive care 2- ok to transfer to recovery area then discharge per protocol 5-[id number] diet 4-Hemoccult on a yearly basis by primary care physician 5-colonoscopy in 1 year with longer prep 6- EGD as needed 7-monitor H&H if stable patient can be discharged from GI perspective
--- NOTE | 2018-04-04 11:17 | P.PNGI ---
Subjective Interval history: Patient lying in bed comfortably, she drank some of her preparation but she said she cannot drink anymore, no sign of active bleeding and no rectal bleeding at this point, hemoglobin drifted down but stable Physical Exam Vital signs: Vital Signs 04/03/18 13:00 04/03/18 13:07 04/03/18 16:00 Temperature 98.3 F Pulse Rate 80 88 Respiratory Rate 18 20 Blood Pressure 140/72 142/79 H Pulse Oximetry 98 99 99 04/03/18 19:00 04/03/18 20:00 04/03/18 23:44 Temperature 98.4 F 98.7 F Pulse Rate 85 64 Respiratory Rate 20 20 Blood Pressure 134/78 136/72 Pulse Oximetry 98 98 96 04/04/18 04:00 04/04/18 07:48 04/04/18 08:00 Temperature 98.2 F 98.5 F Pulse Rate 69 73 Respiratory Rate 17 16 Blood Pressure 137/71 144/67 H Pulse Oximetry 98 100 100 04/04/18 09:00 Temperature Pulse Rate 81 Respiratory Rate Blood Pressure Pulse Oximetry Intake & Output 04/03/18 04/04/18 04/04/18 18:59 06:59 18:59 Intake Total 1000 / 1000 100 / 100 100 / 100 Balance 1000 / 1000 100 / 100 100 / 100 Weight 97.069 kg Intake: IV 1000 / 1000 100 / 100 100 / 100 Protonix Inj 80 MG In NS Inj 100 / 100 100 / 100 100 ML @ 10 mls/hr IV.CONT CONT ANDREW Rx#:[id number] NS Inj 1,000 ML @ Wide Open IV. 1000 / 1000 SIG BOLUS ONE Rx#:[id number] Other: # Incontinent Voids 2 Date of Last Bowel Movement 04/03/18 Weight On Admission 97.069 kg - Constitutional no acute distress, obese - Routine HEENT Exam Head: Present: normocephalic, atraumatic Eye: Present: EOMI, PERRL ENT: Present: mucous membranes moist - Routine Neck Exam Present: supple, full ROM - Routine Respiratory Exam Present: CTA bilaterally - Routine Cardiovascular Exam Present: S1, S2, bradycardia - Routine Abdominal Exam Present: soft, normoactive bowel sounds - Routine Extremities Exam Present: full ROM - Routine Skin Exam Present: intact, warm - Routine Neurological Exam Present: alert, oriented X3 - Routine Psychiatric Exam Present: normal affect Results - Labs CBC & Chem 7: 04/04/18 08:12 04/04/18 08:12 Laboratory Results - last 24 hr 04/03/18 04/03/18 04/04/18 11:20 19:44 08:12 WBC 4.8 RBC 2.90 L Hgb 9.9 L 9.5 L 9.1 L Hct 31.1 L 29.2 L 27.5 L MCV 94.7 D MCH 31.5 MCHC 33.2 RDW 14.0 Plt Count 209 MPV 8.0 Neut % (Auto) 55.2 Lymph % (Auto) 30.1 [place] % (Auto) 10.4 H Eos % (Auto) 3.0 Baso % (Auto) 1.3 Neut # (Auto) 2.6 Lymph # (Auto) 1.4 [place] # (Auto) 0.5 Eos # (Auto) 0.1 Baso # (Auto) 0.1 WBC Differential . Differential Comment Auto diff final Sodium Potassium Chloride Carbon Dioxide Anion Gap BUN Creatinine Estimated GFR Random Glucose Calcium Total Bilirubin AST ALT Alkaline Phosphatase Total Protein Albumin 04/04/18 08:12 WBC RBC Hgb Hct MCV MCH MCHC RDW Plt Count MPV Neut % (Auto) Lymph % (Auto) [place] % (Auto) Eos % (Auto) Baso % (Auto) Neut # (Auto) Lymph # (Auto) [place] # (Auto) Eos # (Auto) Baso # (Auto) WBC Differential Differential Comment Sodium 145 Potassium 3.8 Chloride 111 H Carbon Dioxide 24.4 Anion Gap 10 BUN 10 Creatinine 0.83 Estimated GFR 82 L Random Glucose 92 Calcium 8.2 L Total Bilirubin 0.4 AST 16 ALT 11 Alkaline Phosphatase 68 Total Protein 6.4 Albumin 3.2 L - Imaging Impressions Abdomen/Pelvis CT 04/03/18 08:12 CONCLUSION: 1. I do not see evidence for diverticulitis. 2. Do not see etiology for the bright red blood per rectum. 3. Large midline abdominal hernia containing bowel. Assessment and Plan - Plan Patient is doing okay, she drank some of the prep but not completely, no active bleeding, hemoglobin drifted down a little bit but stable, she had upper endoscopy and colonoscopy Findings; colonoscopy, prep fair, some stool may interfere with division of small lesion. 3 polyps in the sigmoid ablated with heat, significant diverticular disease throughout the colon, most likely the source of bleeding, no active bleeding at this time Rectum: Small hemorrhoid Esophagus: Esophageal ring status post dilation with savory guidewire size 17 mm Stomach: Normal Duodenum: [ ] Recommendations; 1- Supportive care 2- ok to transfer to recovery area then discharge per protocol 4-[id number] diet 4-Hemoccult on a yearly basis by primary care physician 5-colonoscopy in 1 year with longer prep 6- EGD as needed 7-monitor H&H if stable patient can be discharged from GI [facility]
[2018-04-04] MEDS: Acetaminophen 325 MG Tablet PO PRN ×2 (13:04→21:07)
--- NOTE | 2018-04-04 17:55 | P.PN ---
Subjective Interval history: Follow-up for acute GI bleed-patient seen and examined, awake, alert oriented x3. Abdomen mildly tender, no nausea, no vomiting, no diarrhea. No chest pain , no shortness of breath. No acute changes overnight. N.p.o., going for colonoscopy and EGD Physical Exam Vital signs: Vital Signs 04/03/18 19:00 04/03/18 20:00 04/03/18 23:44 Temperature 98.4 F 98.7 F Pulse Rate 85 64 Respiratory Rate 20 20 Blood Pressure 134/78 136/72 Pulse Oximetry 98 98 96 04/04/18 04:00 04/04/18 07:48 04/04/18 08:00 Temperature 98.2 F 98.5 F Pulse Rate 69 73 Respiratory Rate 17 16 Blood Pressure 137/71 144/67 H Pulse Oximetry 98 100 100 04/04/18 09:00 04/04/18 11:46 04/04/18 12:00 Temperature 97.4 F L 98.3 F Pulse Rate 81 88 88 Respiratory Rate 18 16 Blood Pressure 129/74 147/93 H Pulse Oximetry 97 97 04/04/18 16:00 Temperature Pulse Rate 97 H Respiratory Rate 16 Blood Pressure 138/84 Pulse Oximetry 97 Intake & Output 04/03/18 04/04/18 04/04/18 18:59 06:59 18:59 Intake Total 1000 / 1000 100 / 100 300 / 300 Balance 1000 / 1000 100 / 100 300 / 300 Weight 97.069 kg Intake: IV 1000 / 1000 100 / 100 300 / 300 Protonix Inj 80 MG In NS Inj 100 / 100 100 / 100 100 ML @ 10 mls/hr IV.CONT CONT ANDREW Rx#:[id number] LR 1000 mL Inj 1,000 ML @ 30 200 / 200 mls/hr IV.SIG .Q24H ANDREW Rx#: [id number] NS Inj 1,000 ML @ Wide Open IV. 1000 / 1000 SIG BOLUS ONE Rx#:[id number] Other: # Incontinent Voids 2 Date of Last Bowel Movement 04/03/18 Weight On Admission 97.069 kg Narrative: GENERAL: 72-year-old female, no apparent distress SKIN: Warm and dry. HEAD: Atraumatic. Normocephalic. EYES: Pupils equal and round. No scleral icterus. No injection or drainage. ENT: No nasal bleeding or discharge. Mucous membranes pink and moist. NECK: Trachea midline. No JVD. CARDIOVASCULAR: Regular rate and rhythm. RESPIRATORY: No accessory muscle use. Clear to auscultation. Breath sounds equal bilaterally. GASTROINTESTINAL: Abdomen soft, bulky, nontender. Bowel sounds normoactive x4 MUSCULOSKELETAL: Extremities without clubbing, cyanosis. Bilateral lower extremities with chronic venous discoloration, trace pretibial edema, pedal pulses 2+ bilateral. NEUROLOGICAL: Awake and alert. No obvious cranial nerve deficits. Motor grossly within normal limits. Five out of 5 muscle strength in the arms and legs. Normal speech. PSYCHIATRIC: Appropriate mood and affect; insight and judgment normal. Results - Labs CBC & Chem 7: 04/04/18 08:12 04/04/18 08:12 Laboratory Results - last 24 hr 04/03/18 04/04/18 04/04/18 19:44 08:12 08:12 WBC 4.8 RBC 2.90 L Hgb 9.5 L 9.1 L Hct 29.2 L 27.5 L MCV 94.7 D MCH 31.5 MCHC 33.2 RDW 14.0 Plt Count 209 MPV 8.0 Neut % (Auto) 55.2 Lymph % (Auto) 30.1 [place] % (Auto) 10.4 H Eos % (Auto) 3.0 Baso % (Auto) 1.3 Neut # (Auto) 2.6 Lymph # (Auto) 1.4 [place] # (Auto) 0.5 Eos # (Auto) 0.1 Baso # (Auto) 0.1 WBC Differential . Differential Comment Auto diff final Sodium 145 Potassium 3.8 Chloride 111 H Carbon Dioxide 24.4 Anion Gap 10 BUN 10 Creatinine 0.83 Estimated GFR 82 L Random Glucose 92 Calcium 8.2 L Total Bilirubin 0.4 AST 16 ALT 11 Alkaline Phosphatase 68 Total Protein 6.4 Albumin 3.2 L Assessment and Plan - Assessment (1) Acute GI bleeding Code(s): K92.2 - Gastrointestinal hemorrhage, unspecified Status: Acute - Plan 72-year-old -[place] female with a past medical history of hypertension , CAD, arthritis and currently taking naproxen presented to the ED for evaluation of an acute onset of bright red blood per rectum times several episode this morning. Upper GI bleed-Secondary to NSAID hx of GI in the past -Hold NSAIDs -IVF -PPI -GI following, appreciate input -Going for EGD/colonoscopy -follow HH stable, stable. Hx CAD Hx of HTN not on any medications at home per review of med reconciliation BP stable -monitor BP DVT prophylaxis: Chemical anti-prophylaxis contraindicated, bilateral SCDs GI prophylaxis: PPI Repeat labs in am PT eval CM for dc planning Code Status: Full code Discussed Condition With: RN, pt, CM Discharge Planning: Poss dc tomorrow with [facility]
--- NOTE | 2018-04-04 18:07 | ECG ---
Date Performed: 04/03/2018 Time Performed: 18:51:09 PTAGE: 72 years EKG: Sinus rhythm NORMAL ECG PREVIOUS TRACING 11/27/2016 @ 08.47.57 Since the previous tracing, no significant change noted DOCTOR: Peña Yeung Interpretating Date/Time 04/04/2018 18:05:55
[2018-04-04 19:43] VITALS: RESP 20
[2018-04-04] MEDS: risperiDONE 0.5 MG ODT PO SCH (21:07)
--- NOTE | 2018-04-05 08:07 | P.DCO ---
- Physical Therapy Order: Evaluate and treat - Home Health Nursing Order: Medical education, Signs/symptoms of disease process, Nursing assessment with vital signs - Case Management Consult Case Management Consult-Home Health: Yes - Certification I have seen patient Terri Rob on 04/05/18. My clinical findings support the need for the requested home health care services because: weakness, debilitated, advanced age with comorbidities Deconditioned with increased weakness, High risk of falls I certify that my clinical findings support that this patient is homebound because: Unsteady gait/balance
[2018-04-05 08:16] VITALS: BP 137/80; TEMP 98; O2SAT 97
[2018-04-05] MEDS: Pantoprazole Inj 40 MG Vial IV.PUSH SCH (08:34)
[2018-04-05] MEDS: Potassium Chloride 10 MEQ ER Capsule PO SCH (08:35)
[2018-04-05] MEDS ORDERED: Phenol 1.4% 180 ML Spray Bottle OROPHARYNG PRN (09:04)
--- NOTE | 2018-04-05 09:37 | P.PN ---
Subjective Interval history: Follow up for UGI bleed. Patient seen and examined, complains of sore throat from EGD. No chest pain, shortness of breath, no nausea, no vomiting, no diarrhea. No abdominal pain. No more rectal bleeding. No fever. Physical Exam Vital signs: Vital Signs 04/04/18 11:46 04/04/18 12:00 04/04/18 16:00 Temperature 97.4 F L 98.3 F Pulse Rate 88 88 97 H Respiratory Rate 18 16 16 Blood Pressure 129/74 147/93 H 138/84 Pulse Oximetry 97 97 97 04/04/18 19:41 04/04/18 20:00 04/04/18 23:53 Temperature 98.3 F Pulse Rate 89 110 H 95 H Respiratory Rate 20 20 Blood Pressure 172/79 H 181/80 H Pulse Oximetry 97 96 04/05/18 00:52 04/05/18 04:00 04/05/18 08:14 Temperature 98.1 F 98.0 F Pulse Rate 77 84 Respiratory Rate 20 20 Blood Pressure 166/83 H 140/73 137/80 Pulse Oximetry 95 97 Intake & Output 04/04/18 04/05/18 04/05/18 18:59 06:59 18:59 Intake Total 500 / 500 Balance 500 / 500 Intake: IV 300 / 300 Protonix Inj 80 MG In NS Inj 100 / 100 100 ML @ 10 mls/hr IV.CONT CONT [facility] Rx#:[id number] LR 1000 mL Inj 1,000 ML @ 30 200 / 200 mls/hr IV.SIG .Q24H [facility] Rx#: [id number] Anesthesia Amount 200 / 200 Other: Date of Last Bowel Movement 04/03/18 Narrative: GENERAL: 72-year-old female, no apparent distress SKIN: Warm and dry. HEAD: Atraumatic. Normocephalic. EYES: Pupils equal and round. No scleral icterus. No injection or drainage. ENT: No nasal bleeding or discharge. Mucous membranes pink and moist. Oropharynx noted with erythema from EGD. NECK: Trachea midline. No JVD. CARDIOVASCULAR: Regular rate and rhythm. RESPIRATORY: No accessory muscle use. Clear to auscultation. Breath sounds equal bilaterally. GASTROINTESTINAL: Abdomen soft, bulky, nontender. Bowel sounds normoactive x4 MUSCULOSKELETAL: Extremities without clubbing, cyanosis. Bilateral lower extremities with chronic venous discoloration, trace pretibial edema, pedal pulses 2+ bilateral. NEUROLOGICAL: Awake and alert. No obvious cranial nerve deficits. Motor grossly within normal limits. Five out of 5 muscle strength in the arms and legs. Normal speech. PSYCHIATRIC: Appropriate mood and affect; insight and judgment normal. Results - Labs CBC & Chem 7: 04/04/18 08:12 04/04/18 08:12 - Procedures 04/04/2018 colonoscopy, prep fair, some stool may interfere with division of small lesion. 3 polyps in the sigmoid ablated with heat, significant diverticular disease throughout the colon, most likely the source of bleeding, no active bleeding at this time Rectum: Small hemorrhoid Esophagus: Esophageal ring status post dilation with savory guidewire size 17 mm Stomach: Normal Duodenum: [ ] Recommendations; 1- Supportive care 2- ok to transfer to recovery area then discharge per protocol 4-[id number] diet 4-Hemoccult on a yearly basis by primary care physician 5-colonoscopy in 1 year with longer prep 6- EGD as needed 7-monitor H&H if stable patient can be discharged from GI perspective Assessment and Plan - Assessment (1) Acute GI bleeding Code(s): K92.2 - Gastrointestinal hemorrhage, unspecified Status: Acute - Plan 72-year-old -[place] female with a past medical history of hypertension , CAD, arthritis and currently taking naproxen presented to the ED for evaluation of an acute onset of bright red blood per rectum times several episode this morning. Upper GI bleed-Secondary to NSAID hx of GI in the past -Hold NSAIDs -PPI -GI following, appreciate input -04/04-S/P colonoscopy, prep fair, some stool may interfere with division of small lesion. 3 polyps in the sigmoid ablated with heat, significant diverticular disease throughout the colon, most likely the source of bleeding, no active bleeding at this time Rectum: Small hemorrhoid Esophagus: Esophageal ring status post dilation with savory guidewire size 17 mm Stomach: Normal -High-fiber diet Tolerating diet well, no more rectal bleeding Hx CAD Hx of HTN not on any medications at home per review of med reconciliation BP stable -monitor BP DVT prophylaxis: Chemical anti-prophylaxis contraindicated, bilateral SCDs GI prophylaxis: PPI PT recommends home health care Tolerating diet well, no rectal bleeding Discharge home today Follow-up with GI in 2 weeks High-fiber diet Activity as tolerated Code Status: Full code Discussed Condition With: DIANE, patient, case management Discharge Planning: Discharge home today with home health care
[2018-04-05 10:51] VITALS: PULSE 80
--- NOTE | 2018-04-05 18:12 | P.DS ---
Date of admission: 04/03/18 12:32 Primary care physician: Gay Vo MD, [facility]2 Attending physician on discharge: Himanshu Brown Anticipated date of discharge: 04/05/18 Brief History from admission: 72-year-old -Indian female with a past medical history of hypertension , CAD, arthritis and currently taking naproxen presented to the ED for evaluation of an acute onset of bright red blood per rectum times several episode this morning. In the ED, patient continued to have multiple stool described as bright red blood per rectum. Patient states over the course of the past 3-4 days she has been taking more than the usual dose of naproxen secondary to knee and hip as well as back pain. She started taking 500 mg 3-4 times a day as opposed to twice daily. On admission H&H was 10.7/32.8. Patient was admitted back in June 2016 secondary to GI bleed for which gastroenterology was consulted and patient underwent emergent EGD followed by colonoscopy. Currently she reports some shortness of breath however denies any chest pain. She has no hematuria, hemoptysis or hematemesis. DS: Diagnosis - Discharge Diagnosis (1) Acute GI bleeding Status: Acute DS: Summary Hospital Course: 72-year-old -Indian female with a past medical history of hypertension , CAD, arthritis and currently taking naproxen presented to the ED for evaluation of an acute onset of bright red blood per rectum times several episode. Upper GI bleed-Secondary to NSAID hx of GI in the past -Held NSAIDs -PPI given -GI following, appreciate input. Dx recommended. -04/04-S/P colonoscopy, prep fair, some stool may interfere with division of small lesion. 3 polyps in the sigmoid ablated with heat, significant diverticular disease throughout the colon, most likely the source of bleeding, no active bleeding at this time Rectum: Small hemorrhoid Esophagus: Esophageal ring status post dilation with savory guidewire size 17 mm Stomach: Normal -High-fiber diet recommended Tolerated diet well, no more rectal bleeding Hx CAD Hx of HTN not on any medications at home per review of med reconciliation BP stable -monitored BP PT ordered, [facility] recommended Pt. discharged home in stable condition, HH stable, no more rectal bleeding Follow-up with GI in 2 weeks High-fiber diet Activity as tolerated - Time Spent with Patient Total time spent providing and/or coordinating discharge services: 40 minutes Greater than 30 minutes - Quality: VTE Deep Vein Thrombosis/Pulmonary Embolism Present on Admission: No Exam Vital signs: Vital Signs 04/04/18 19:41 04/04/18 20:00 04/04/18 23:53 Temperature 98.3 F Pulse Rate 89 110 H 95 H Respiratory Rate 20 20 Blood Pressure 172/79 H 181/80 H Pulse Oximetry 97 96 04/05/18 00:52 04/05/18 04:00 04/05/18 08:14 Temperature 98.1 F 98.0 F Pulse Rate 77 84 Respiratory Rate 20 20 Blood Pressure 166/83 H 140/73 137/80 Pulse Oximetry 95 97 04/05/18 09:00 Temperature Pulse Rate 80 Respiratory Rate Blood Pressure Pulse Oximetry Intake & Output 04/04/18 04/05/18 04/05/18 18:59 06:59 18:59 Intake Total 500 / 500 Balance 500 / 500 Intake: IV 300 / 300 Protonix Inj 80 MG In NS Inj 100 / 100 100 ML @ 10 mls/hr IV.CONT CONT [facility] Rx#:[id number] LR 1000 mL Inj 1,000 ML @ 30 200 / 200 mls/hr IV.SIG .Q24H [facility] Rx#: [id number] Anesthesia Amount 200 / 200 Other: Date of Last Bowel Movement 04/03/18 Results Procedures completed during hospitalization: 04/04/2018 colonoscopy, prep fair, some stool may interfere with division of small lesion. 3 polyps in the sigmoid ablated with heat, significant diverticular disease throughout the colon, most likely the source of bleeding, no active bleeding at this time Rectum: Small hemorrhoid Esophagus: Esophageal ring status post dilation with savory guidewire size 17 mm Stomach: Normal Duodenum: [ ] Recommendations; 1- Supportive care 2- ok to transfer to recovery area then discharge per protocol 4-[id number]-[id number] diet 4-Hemoccult on a yearly basis by primary care physician 5-colonoscopy in 1 year with longer prep 6- EGD as needed 7-monitor H&H if stable patient can be discharged from GI perspective - Impressions ITS Impressions Abdomen/Pelvis CT 04/03/18 08:12 CONCLUSION: 1. I do not see evidence for diverticulitis. 2. Do not see etiology for the bright red blood per rectum. 3. Large midline abdominal hernia containing bowel. Discharge Plan - Discharge Disposition Patient Disposition: W/Home Health Service - Discharge Condition Condition: Good - Discharge Order Discharge Orders: Discharge Order (Routine); Ordered 04/05/18 Ordered By: Martina Terrazas - Discharge Details Anticipated Discharge Date: 04/05/18 - Physicians Team Primary Care Provider: Gay Vo Attending Provider: Himanshu Brown Other Providers: Eugenio Lai MD ; [facility],Insurance
== END 2018-04-05 12:03 | disposition home health service (06) ==
LOC: NEDA 07:36 → NEPE 07:36 → NEDA 14:43 → NEPGCP 14:54
PROVIDERS: ADMIT Internal Medicine; ATTEND Internal Medicine
DX: K57.31 Diverticulosis of large intestine without perforation or abscess with bleeding; F32.9 Major depressive disorder, single episode, unspecified; D25.9 Leiomyoma of uterus, unspecified; Z79.899 Other long term (current) drug therapy; T39.395A Adverse effect of other nonsteroidal anti-inflammatory drugs [NSAID], initial encounter; K46.9 Unspecified abdominal hernia without obstruction or gangrene; I10 Essential (primary) hypertension; D12.5 Benign neoplasm of sigmoid colon; K64.9 Unspecified hemorrhoids; K22.2 Esophageal obstruction; I25.10 Atherosclerotic heart disease of native coronary artery without angina pectoris

== ENCOUNTER 2018-04-14 19:35 | Observation (INO) ==
[2018-04-14] MEDS ORDERED: Acetaminophen 325 MG Tablet PO ONE (19:59)
[2018-04-14] MEDS ORDERED: Sod Chloride 0.9% Inj 1,000 ML IV.SIG SCH (20:00)
[2018-04-14 20:39] LABS: Baso # (Auto) 0.1 th/mm3 (0.0-0.2); Eos # (Auto) 0.1 th/mm3 (0.0-0.4); Eos % (Auto) 0.7 % (0.0-4.0); Hematocrit 29.8 % (35.0-46.0); Hemoglobin 9.6 gm/dL (11.6-15.3); Lymph # (Auto) 1.3 th/mm3 (1.0-4.8); Lymph % (Auto) 13.7 % (9.0-44.0); Mean Corpuscular HGB Conc 32.1 % (32.0-36.0); Mean Corpuscular Hemoglobin 30.8 pg (27.0-34.0); Mean Corpuscular Volume 95.9 fL (80.0-100.0); Mean Platelet Volume 7.9 fL (7.0-11.0); Mono # (Auto) 0.7 th/mm3 (0.0-0.9); Mono % (Auto) 6.9 % (0.0-8.0); Neut # (Auto) 7.3 th/mm3 (1.8-7.7); Neut % (Auto) 77.7 % (16.0-70.0); Platelet Count 273 th/mm3 (150-450); Red Cell Distribution Width 14.2 % (11.6-17.2); White Blood Count 9.4 th/mm3 (4.0-11.0)
--- NOTE | 2018-04-14 20:42 | ED ---
HPI General Chief complaint: Extremity Problem,Nontraumatic Stated complaint: Knee Pain/Fever Time Seen by Provider: 04/14/18 19:46 Source: patient and EMS Mode of arrival: EMS Limitations: no limitations History of Present Illness HPI narrative: 72-year-old female came to the emergency room brought by EMS because she was unable to stand today. Patient says that she usually requires a lot of assistance most of the time in standing and ambulating. She uses a walker in addition to the assistance to get up from a sitting to a standing position. However today she was unable to stand at all. She has been complaining of right hip pain. Patient denies any history of fall. She was not most forthcoming with the history. She lives with her daughter and she said her daughter called 911. I am awaiting for the daughter to come in to get more history. Patient had a temperature 102.5 in the emergency room. She denies any cough, nausea or vomiting. Related Data Home Medications Medication Instructions Recorded Confirmed potassium chloride 10 meq PO DAILY 04/03/18 04/14/18 risperidone 0.5 mg PO HS 04/03/18 04/14/18 trihexyphenidyl 2 mg PO TID 04/03/18 04/14/18 diltiazem HCl 240 mg PO DAILY 04/16/18 04/16/18 Previous Rx's Medication Instructions Recorded amoxicillin-pot clavulanate 1 tab PO Q12HR 7 Days tab 04/18/18 Allergies Allergy/AdvReac Type Severity Reaction Status Date / Time iodine Allergy Mild Swelling Verified 04/14/18 19:54 potassium iodide Allergy Mild Swelling Verified 04/14/18 19:54 povidone-iodine Allergy Mild Swelling Verified 04/14/18 19:54 sodium iodide Allergy Mild Swelling Verified 04/14/18 19:54 sodium iodide Allergy Mild Swelling Verified 04/14/18 19:54 Review of Systems ROS: all other systems reviewed are negative [facility] Medical History Medical History Arthritis (Acute) HTN (hypertension) (Acute) Coronary artery disease (Acute) Depression (Acute) Tremor (Acute) Family History Family History Other Breast cancer Social History Social History Substance History: No History of Abuse Second Hand Smoke Exposure: No Smoking Status: Never smoker Tobacco Type: Cigarettes How Often Do You Have a Drink Containing Alcohol: Never Recent Travel in [facility] within the Last 8 Weeks: No Recent Out of Country Travel within the Last 8 Weeks: No Immunization History Tetanus Immunization: Unsure Exam Narrative Exam Narrative: GENERAL: Awake, alert, morbidly obese, debilitated, looks much older than her age SKIN: Focused skin assessment warm/dry. Dry flaky skin HEAD: Atraumatic. Normocephalic. EYES: Pupils equal and round. No scleral icterus. No injection or drainage. ENT: No nasal bleeding or discharge. Mucous membranes pink and moist. NECK: Trachea midline. No JVD. CARDIOVASCULAR: Regular rate and rhythm. No murmur appreciated. RESPIRATORY: No accessory muscle use. Clear to auscultation. Breath sounds equal bilaterally. GASTROINTESTINAL: Abdomen soft, non-tender, nondistended. Hepatic and splenic margins not palpable. MUSCULOSKELETAL: No obvious deformities. No clubbing. No cyanosis. No edema. Poor muscle strength in general. Decreased range of motion in the right knee and hip joint due to right hip pain NEUROLOGICAL: Awake and alert. No obvious cranial nerve deficits. Motor grossly within normal limits. Normal speech. Essential tremors and some rigidity PSYCHIATRIC: Appropriate mood and affect; insight and judgment normal. Course Initial Documented Vital Signs Temperature 102.1 F H 04/14/18 19:46 Pulse Rate 108 H 04/14/18 19:46 Respiratory Rate 18 04/14/18 19:46 Blood Pressure 151/80 H 04/14/18 19:46 Pulse Oximetry 95 04/14/18 19:46 Last Documented Vital Signs Temperature 98.4 F 04/18/18 07:54 Pulse Rate 84 04/18/18 07:54 Respiratory Rate 20 04/18/18 07:54 Blood Pressure 160/69 H 04/18/18 07:54 Pulse Oximetry 97 04/18/18 11:21 Medical Decision Making MDM Narrative Medical decision making narrative: 8:45 PM awaiting for blood test result. The daughter is in the room. I discussed with her about the patient's current condition. The daughter told me that patient was doing fine in her usual self up until 6:30 PM. At that point she noticed that she was shaking a little and was unable to stand up which is very unusual for her. Given that she called 911. She said that she had eaten her lunch fine like her usual and had a bowel movement which was normal today. She confirmed that patient did not have any cough, vomiting or diarrhea or any other complaints the entire day up until 6: 30 PM. Medical Screen Exam Complete: Yes Emergency Medical Condition: Yes Lab Data Result diagrams: 04/18/18 06:13 04/18/18 06:13 Lab Results 04/14/18 04/14/18 04/14/18 Range/Units 20:05 20:05 20:05 WBC 9.4 (4.0-11.0) th/mm3 RBC 3.10 L (4.00-5.30) mil/mm3 Hgb 9.6 L (11.6-15.3) gm/dL Hct 29.8 L (35.0-46.0) % MCV 95.9 (80.0-100.0) fL MCH 30.8 (27.0-34.0) pg MCHC 32.1 (32.0-36.0) % RDW 14.2 (11.6-17.2) % Plt Count 273 D (150-450) th/mm3 MPV 7.9 (7.0-11.0) fL Neut % (Auto) 77.7 H (16.0-70.0) % Lymph % (Auto) 13.7 (9.0-44.0) % [place] % (Auto) 6.9 (0.0-8.0) % Eos % (Auto) 0.7 (0.0-4.0) % Baso % (Auto) 1.0 (0.0-2.0) % Neut # (Auto) 7.3 (1.8-7.7) th/mm3 Lymph # (Auto) 1.3 (1.0-4.8) th/mm3 [place] # (Auto) 0.7 (0.0-0.9) th/mm3 Eos # (Auto) 0.1 (0.0-0.4) th/mm3 Baso # (Auto) 0.1 (0.0-0.2) th/mm3 WBC Differential . Differential Comment Auto diff final Sodium 139 (136-145) meq/L Potassium 4.0 (3.5-5.1) meq/L Chloride 107 (98-107) meq/L Carbon Dioxide 26.2 (21.0-32.0) meq/L Anion Gap 6 (5-15) meq/L BUN 18 (7-18) mg/dL Creatinine 1.08 H (0.50-1.00) mg/dL Estimated GFR 60 L (>89) mL/min Random Glucose 91 (74-106) mg/dL Lactic Acid 1.2 (0.4-2.0) mmol/L Calcium 8.6 (8.5-10.1) mg/dL Magnesium 1.7 (1.5-2.5) mg/dL Total Bilirubin 0.4 (0.2-1.0) mg/dL AST 18 (15-37) U/L ALT 17 (10-53) U/L Alkaline Phosphatase 77 (45-117) U/L Troponin I Less than 0.02 L (0.02-0.05) ng/mL Total Protein 7.5 (6.4-8.2) g/dL Albumin 3.7 (3.4-5.0) g/dL Urine Color (Yellw/Straw) Urine Clarity (Clear) Urine pH (5.0-8.5) Ur Specific [place] (1.002-1.035) Urine Protein (Neg-Trace) mg/dL Urine Glucose (UA) (Negative) mg/dL Urine Ketones (Negative) mg/dL Urine Occult Blood (Negative) Urine Nitrate (Negative) Urine Bilirubin (Negative) Urine Urobilinogen (Less than 2) mg/dL Ur Leukocyte Esterase (Negative) Urine RBC (0-3) /hpf Urine WBC (0-5) /hpf Urine Bacteria (None) /hpf Urine Mucus (Occasional) /lpf Micro UA Comment Ur Microscopic Review Urine Culture Comments 04/14/18 04/15/18 04/15/18 Range/Units 21:10 04:11 04:11 WBC 9.7 (4.0-11.0) th/mm3 RBC 3.07 L (4.00-5.30) mil/mm3 Hgb 9.6 L (11.6-15.3) gm/dL Hct 29.0 L (35.0-46.0) % MCV 94.6 (80.0-100.0) fL MCH 31.3 (27.0-34.0) pg MCHC 33.1 (32.0-36.0) % RDW 14.3 (11.6-17.2) % Plt Count 284 (150-450) th/mm3 MPV 7.4 (7.0-11.0) fL Neut % (Auto) 76.1 H (16.0-70.0) % Lymph % (Auto) 14.6 (9.0-44.0) % [place] % (Auto) 8.0 (0.0-8.0) % Eos % (Auto) 0.3 (0.0-4.0) % Baso % (Auto) 1.0 (0.0-2.0) % Neut # (Auto) 7.4 (1.8-7.7) th/mm3 Lymph # (Auto) 1.4 (1.0-4.8) th/mm3 [place] # (Auto) 0.8 (0.0-0.9) th/mm3 Eos # (Auto) 0.0 (0.0-0.4) th/mm3 Baso # (Auto) 0.1 (0.0-0.2) th/mm3 WBC Differential . Differential Comment Auto diff final Sodium 140 (136-145) meq/L Potassium 3.8 (3.5-5.1) meq/L Chloride 107 (98-107) meq/L Carbon Dioxide 25.3 (21.0-32.0) meq/L Anion Gap 8 (5-15) meq/L BUN 14 (7-18) mg/dL Creatinine 1.04 H (0.50-1.00) mg/dL Estimated GFR 63 L (>89) mL/min Random Glucose 100 (74-106) mg/dL Lactic Acid (0.4-2.0) mmol/L Calcium 8.7 (8.5-10.1) mg/dL Magnesium (1.5-2.5) mg/dL Total Bilirubin 0.6 (0.2-1.0) mg/dL AST 20 (15-37) U/L ALT 17 (10-53) U/L Alkaline Phosphatase 73 (45-117) U/L Troponin I (0.02-0.05) ng/mL Total Protein 7.1 (6.4-8.2) g/dL Albumin 3.5 (3.4-5.0) g/dL Urine Color Yellow (Yellw/Straw) Urine Clarity Clear (Clear) Urine pH 5.0 (5.0-8.5) Ur Specific [place] 1.018 (1.002-1.035) Urine Protein Negative (Neg-Trace) mg/dL Urine Glucose (UA) Negative (Negative) mg/dL Urine Ketones Negative (Negative) mg/dL Urine Occult Blood Small H (Negative) Urine Nitrate Negative (Negative) Urine Bilirubin Negative (Negative) Urine Urobilinogen Less than 2 (Less than 2) mg/dL Ur Leukocyte Esterase Negative (Negative) Urine RBC 1 (0-3) /hpf Urine WBC Less than 1 (0-5) /hpf Urine Bacteria Occasional H (None) /hpf Urine Mucus (Occasional) /lpf Micro UA Comment Cath-culture ind Ur Microscopic Review Not Reportable Urine Culture Comments Cath-cult indicated 04/16/18 04/16/18 04/16/18 Range/Units 05:56 05:56 11:10 WBC 13.2 H (4.0-11.0) th/mm3 RBC 3.11 L (4.00-5.30) mil/mm3 Hgb 9.7 L (11.6-15.3) gm/dL Hct 29.6 L (35.0-46.0) % MCV 95.5 (80.0-100.0) fL MCH 31.2 (27.0-34.0) pg MCHC 32.7 (32.0-36.0) % RDW 14.6 (11.6-17.2) % Plt Count 245 (150-450) th/mm3 MPV 7.5 (7.0-11.0) fL Neut % (Auto) 75.1 H (16.0-70.0) % Lymph % (Auto) 12.8 (9.0-44.0) % [place] % (Auto) 10.9 H (0.0-8.0) % Eos % (Auto) 0.5 (0.0-4.0) % Baso % (Auto) 0.7 (0.0-2.0) % Neut # (Auto) 9.9 H (1.8-7.7) th/mm3 Lymph # (Auto) 1.7 (1.0-4.8) th/mm3 [place] # (Auto) 1.4 H (0.0-0.9) th/mm3 Eos # (Auto) 0.1 (0.0-0.4) th/mm3 Baso # (Auto) 0.1 (0.0-0.2) th/mm3 WBC Differential . Differential Comment Auto diff final Sodium 139 (136-145) meq/L Potassium 3.5 (3.5-5.1) meq/L Chloride 107 (98-107) meq/L Carbon Dioxide 23.7 (21.0-32.0) meq/L Anion Gap 8 (5-15) meq/L BUN 11 (7-18) mg/dL Creatinine 0.96 (0.50-1.00) mg/dL Estimated GFR 69 L (>89) mL/min Random Glucose 87 (74-106) mg/dL Lactic Acid (0.4-2.0) mmol/L Calcium 8.3 L (8.5-10.1) mg/dL Magnesium 1.8 (1.5-2.5) mg/dL Total Bilirubin (0.2-1.0) mg/dL AST (15-37) U/L ALT (10-53) U/L Alkaline Phosphatase (45-117) U/L Troponin I (0.02-0.05) ng/mL Total Protein (6.4-8.2) g/dL Albumin (3.4-5.0) g/dL Urine Color Yellow (Yellw/Straw) Urine Clarity Clear (Clear) Urine pH 5.0 (5.0-8.5) Ur Specific [place] 1.009 (1.002-1.035) Urine Protein Negative (Neg-Trace) mg/dL Urine Glucose (UA) Negative (Negative) mg/dL Urine Ketones Negative (Negative) mg/dL Urine Occult Blood Small H (Negative) Urine Nitrate Negative (Negative) Urine Bilirubin Negative (Negative) Urine Urobilinogen Less than 2 (Less than 2) mg/dL Ur Leukocyte Esterase Trace H (Negative) Urine RBC 1 (0-3) /hpf Urine WBC 3 (0-5) /hpf Urine Bacteria (None) /hpf Urine Mucus Few H (Occasional) /lpf Micro UA Comment Cath-culture not ind Ur Microscopic Review Not Reportable Urine Culture Comments Cath-cult not ind 04/17/18 04/17/18 04/18/18 Range/Units 05:42 05:42 06:13 WBC 11.2 H 8.5 (4.0-11.0) th/mm3 RBC 2.83 L 2.98 L (4.00-5.30) mil/mm3 Hgb 8.9 L 9.2 L (11.6-15.3) gm/dL Hct 27.2 L 28.9 L (35.0-46.0) % MCV 96.2 96.7 (80.0-100.0) fL MCH 31.4 30.7 (27.0-34.0) pg MCHC 32.7 31.8 L (32.0-36.0) % RDW 14.4 14.5 (11.6-17.2) % Plt Count 230 233 (150-450) th/mm3 MPV 7.1 7.6 (7.0-11.0) fL Neut % (Auto) 73.9 H 69.2 (16.0-70.0) % Lymph % (Auto) 12.9 16.9 (9.0-44.0) % [place] % (Auto) 9.6 H 10.4 H (0.0-8.0) % Eos % (Auto) 3.0 3.0 (0.0-4.0) % Baso % (Auto) 0.6 0.5 (0.0-2.0) % Neut # (Auto) 8.3 H 5.9 (1.8-7.7) th/mm3 Lymph # (Auto) 1.4 1.4 (1.0-4.8) th/mm3 [place] # (Auto) 1.1 H 0.9 (0.0-0.9) th/mm3 Eos # (Auto) 0.3 0.3 (0.0-0.4) th/mm3 Baso # (Auto) 0.1 0.0 (0.0-0.2) th/mm3 WBC Differential . . Differential Comment Auto diff final Auto diff final Sodium 139 (136-145) meq/L Potassium 3.6 (3.5-5.1) meq/L Chloride 108 H (98-107) meq/L Carbon Dioxide 23.2 (21.0-32.0) meq/L Anion Gap 8 (5-15) meq/L BUN 11 (7-18) mg/dL Creatinine 0.79 (0.50-1.00) mg/dL Estimated GFR 86 L (>89) mL/min Random Glucose 90 (74-106) mg/dL Lactic Acid (0.4-2.0) mmol/L Calcium 8.0 L (8.5-10.1) mg/dL Magnesium 2.1 (1.5-2.5) mg/dL Total Bilirubin (0.2-1.0) mg/dL AST (15-37) U/L ALT (10-53) U/L Alkaline Phosphatase (45-117) U/L Troponin I (0.02-0.05) ng/mL Total Protein (6.4-8.2) g/dL Albumin (3.4-5.0) g/dL Urine Color (Yellw/Straw) Urine Clarity (Clear) Urine pH (5.0-8.5) Ur Specific [place] (1.002-1.035) Urine Protein (Neg-Trace) mg/dL Urine Glucose (UA) (Negative) mg/dL Urine Ketones (Negative) mg/dL Urine Occult Blood (Negative) Urine Nitrate (Negative) Urine Bilirubin (Negative) Urine Urobilinogen (Less than 2) mg/dL Ur Leukocyte Esterase (Negative) Urine RBC (0-3) /hpf Urine WBC (0-5) /hpf Urine Bacteria (None) /hpf Urine Mucus (Occasional) /lpf Micro UA Comment Ur Microscopic Review Urine Culture Comments 04/18/18 Range/Units 06:13 WBC (4.0-11.0) th/mm3 RBC (4.00-5.30) mil/mm3 Hgb (11.6-15.3) gm/dL Hct (35.0-46.0) % MCV (80.0-100.0) fL MCH (27.0-34.0) pg MCHC (32.0-36.0) % RDW (11.6-17.2) % Plt Count (150-450) th/mm3 MPV (7.0-11.0) fL Neut % (Auto) (16.0-70.0) % Lymph % (Auto) (9.0-44.0) % [place] % (Auto) (0.0-8.0) % Eos % (Auto) (0.0-4.0) % Baso % (Auto) (0.0-2.0) % Neut # (Auto) (1.8-7.7) th/mm3 Lymph # (Auto) (1.0-4.8) th/mm3 [place] # (Auto) (0.0-0.9) th/mm3 Eos # (Auto) (0.0-0.4) th/mm3 Baso # (Auto) (0.0-0.2) th/mm3 WBC Differential Differential Comment Sodium 143 (136-145) meq/L Potassium 3.7 (3.5-5.1) meq/L Chloride 110 H (98-107) meq/L Carbon Dioxide 22.9 (21.0-32.0) meq/L Anion Gap 10 (5-15) meq/L BUN 10 (7-18) mg/dL Creatinine 0.71 (0.50-1.00) mg/dL Estimated GFR Greater than 89 (>89) mL/min Random Glucose 102 (74-106) mg/dL Lactic Acid (0.4-2.0) mmol/L Calcium 8.0 L (8.5-10.1) mg/dL Magnesium (1.5-2.5) mg/dL Total Bilirubin (0.2-1.0) mg/dL AST (15-37) U/L ALT (10-53) U/L Alkaline Phosphatase (45-117) U/L Troponin I (0.02-0.05) ng/mL Total Protein (6.4-8.2) g/dL Albumin (3.4-5.0) g/dL Urine Color (Yellw/Straw) Urine Clarity (Clear) Urine pH (5.0-8.5) Ur Specific [place] (1.002-1.035) Urine Protein (Neg-Trace) mg/dL Urine Glucose (UA) (Negative) mg/dL Urine Ketones (Negative) mg/dL Urine Occult Blood (Negative) Urine Nitrate (Negative) Urine Bilirubin (Negative) Urine Urobilinogen (Less than 2) mg/dL Ur Leukocyte Esterase (Negative) Urine RBC (0-3) /hpf Urine WBC (0-5) /hpf Urine Bacteria (None) /hpf Urine Mucus (Occasional) /lpf Micro UA Comment Ur Microscopic Review Urine Culture Comments Imaging Data Radiologist's impression: Chest X-Ray 04/14/18 19:59 CONCLUSION: No acute cardiopulmonary disease demonstrated. Femur X-Ray 04/14/18 20:51 CONCLUSION: Intact right femur. Mild right hip osteoarthritis. Severe, medial compartment predominant right knee osteoarthritis. Pelvis X-Ray 04/14/18 20:51 CONCLUSION: Intact pelvis. Very mild bilateral hip osteoarthritis. ECG Data Attestation: I personally reviewed and interpreted this ECG as follows: Interpretation: Will lead EKG was reviewed by me. Normal sinus rhythm, axis, PVC, nonspecific ST-T wave changes, tachycardia. Heart rate of 101 bpm. Discharge Plan Discharge Disposition Patient Disposition: 03 Discharge to SNF Discharge Condition Condition: Stable Discharge Order Discharge Orders: Discharge Order (Routine); Ordered 04/18/18 Ordered By: Velma Hdez ED Use Only Admit Order (Routine); Ordered 04/14/18 Ordered By: Wali Fry Discharge Details Anticipated Discharge Date: 04/18/18 Physicians Team ED Provider: Wali Fry Primary Care Provider: Gay Vo Attending Provider: Leonardo Mcguire Other Providers: [facility],Insurance ; Alesia Siddiqui ; [facility], Agency Status ED Status: Left Department Discharge Information Discharge Date/Time: 04/15/18 02:28
[2018-04-14 20:52] LABS: Alanine Aminotransferase 17 U/L (10-53); Albumin 3.7 g/dL (3.4-5.0); Anion Gap 6 meq/L (5-15); Aspartate Aminotransferase 18 U/L (15-37); Blood Urea Nitrogen 18 mg/dL (7-18); Calcium 8.6 mg/dL (8.5-10.1); Carbon Dioxide 26.2 meq/L (21.0-32.0); Chloride 107 meq/L (98-107); Glomerular Filtration Rate 60 mL/min (>89); Glucose,Random 91 mg/dL (74-106); Magnesium 1.7 mg/dL (1.5-2.5); Sodium 139 meq/L (136-145)
[2018-04-14 20:54] LABS: Alkaline Phosphatase 77 U/L (45-117); Total Protein 7.5 g/dL (6.4-8.2)
--- NOTE | 2018-04-14 21:15 | XR ---
EXAM DATE: 04/14/2018 9:04 PM EST AGE/SEX: 72 years / Female INDICATIONS: Fever CLINICAL DATA: This is the patient's initial encounter. Patient reports that signs and symptoms have been present for 1 day and indicates a pain score of 0/10. MEDICAL/SURGICAL HISTORY: . Coronary Artery Disease . Cholecystectomy. COMPARISON: [facility] – [place], CHEST SINGLE AP, 11/27/2016. . FINDINGS: A single AP view of the chest demonstrates the lungs to be symmetrically aerated without evidence of mass, infiltrate or effusion. The cardiomediastinal contours are unremarkable. Osseous structures a re intact. CONCLUSION: No acute cardiopulmonary disease demonstrated. Electronically signed by: Shadi Atkins MD 04/14/2018 9:14 PM EST
[2018-04-14 21:41] LABS: Bacteria,Urine Occasional /hpf; Bilirubin,Urine Negative (Negative); Clarity,Urine Clear (Clear); Color,Urine Yellow (Yellw/Straw); Glucose,Urine (UA) Negative (Negative); Leukocyte Esterase,Urine Negative (Negative); Nitrite,Urine Negative (Negative); Specific Gravity,Urine 1.018 (1.002-1.035)
--- NOTE | 2018-04-14 21:47 | XR ---
EXAM DATE: 04/14/2018 9:37 PM EST AGE/SEX: 72 years / Female INDICATIONS: Right side pelvic pain, denies injury CLINICAL DATA: This is the patient's initial encounter. Patient reports that signs and symptoms have been present for 1 week and indicates a pain score of 3/10. MEDICAL/SURGICAL HISTORY: . Coronary Artery Disease . None. Cholecystectomy [place] [facility] [place], [place]2018[place] [facility] [place]&LAT 2/3VWS[place] AP PELVIS[place] 03/06/2016. . FINDINGS: Bony pelvis is intact and has normal morphology. Very mild bilateral hip joint space narrowing. No mora bluxations. CONCLUSION: Intact pelvis. Very mild bilateral hip osteoarthritis. Electronically signed by: Shadi Atkins MD 04/14/2018 9:45 PM EST
--- NOTE | 2018-04-14 21:49 | XR ---
EXAM DATE: 04/14/2018 9:39 PM EST AGE/SEX: 72 years / Female INDICATIONS: Right proximal femur pain, denies injry CLINICAL DATA: This is the patient's initial encounter. Patient reports that signs and symptoms have been present for 1 day and indicates a pain score of 3/10. MEDICAL/SURGICAL HISTORY: Hypertension. . Cholecystectomy COMPARISON: [facility] – [place], PELVIS AP 1V, 04/14/2018. . FINDINGS: The right femur is intact. Osteoarthritis is noted, mild at the hip and severe at the knee, especiall y medial compartment. CONCLUSION: Intact right femur. Mild right hip osteoarthritis. Severe, medial compartment predominant right knee osteoarthritis. Electronically signed by: Shadi Atkins MD 04/14/2018 9:47 PM EST
[2018-04-14] MEDS ORDERED: Bisacodyl 10 MG Supp RECTAL PRN (23:23)
--- NOTE | 2018-04-14 23:26 | P.HPIM ---
History of Present Illness Primary Care Physician: Gay Vo MD, R2 History of Present Illness: This is a 72-year-old with a PMH of HTN, CAD, Depression and Arthritis who was brought to the ER by EMS secondary to weakness. Pt very poor historian, unable to obtain significant history. Per report, pt requires significant amount of assistance and ambulates w/ walker at baseline. Today, pt reportedly unable to stand due to profound weakness. Recent admit 04/03-04/05/18 for GI Bleed, s/p Colonoscopy w/ significant diverticular disease thought to be source of bleeding , EGD w/ esophageal ring s/p dilatation. No reports of recurrent bleed. On arrival, BP 151/80, HR 108, O2 sat 95% on RA, Temp 102.1. CBC unremarkable. Creatinine 1.08, previously 0.83 on 04/04/2018. Troponin negative. Lactic Acid 1.2. UA negative for UTI. Femur X-ray intact, mild right hip osteoarthritis, severe medial compartment right knee osteoarthritis. Pelvis X- ray intact. While in ER, pt w/ persistent tachycardia. Flu negative. S/p Blood Cultures. - Diagnosis (1) Viral syndrome (2) Weakness (3) MARCEL (acute kidney injury) Review of Systems PAST FAMILY HISTORY: Reviewed. No h/o DM or CAD All other systems reviewed negative except as stated in HPI PMFSH - History History Provided By: Patient - Medical History Medical History: Medical History (Last Reviewed 04/14/18 @ 20:43 by Wali Fry MD) Arthritis HTN (hypertension) Coronary artery disease Depression Tremor - Family History Family History: Family History (Last Reviewed 04/14/18 @ 20:43 by Wali Fry MD) Other Breast cancer - Tobacco History Second Hand Smoke Exposure: No Smoking Status: Former smoker Tobacco Type: Cigarettes - Alcohol History How Often Do You Have a Drink Containing Alcohol: Never - Substance Use History Substance History: No History of Abuse - Travel History Recent Travel in the [place] Within the Last 8 Weeks: No Recent Travel Out of the Country Within the Last 8 Weeks: No - Immunization History Tetanus Immunization: Unsure Medications and Allergies Allergies Allergy/AdvReac Type Severity Reaction Status Date / Time iodine Allergy Mild Swelling Verified 04/14/18 19:54 potassium iodide Allergy Mild Swelling Verified 04/14/18 19:54 povidone-iodine Allergy Mild Swelling Verified 04/14/18 19:54 sodium iodide Allergy Mild Swelling Verified 04/14/18 19:54 sodium iodide Allergy Mild Swelling Verified 04/14/18 19:54 Home Medications Medication Instructions Recorded Confirmed Type potassium chloride 10 meq PO DAILY 04/03/18 04/14/18 History risperidone 0.5 mg PO HS 04/03/18 04/14/18 History trihexyphenidyl 2 mg PO TID 04/03/18 04/14/18 History Exam Vital signs: Vital Signs 04/14/18 19:46 Temperature 102.1 F H Pulse Rate 108 H Respiratory Rate 18 Blood Pressure 151/80 H Pulse Oximetry 95 Intake & Output 04/14/18 04/14/18 04/15/18 06:59 18:59 06:59 Weight 108.862 kg Narrative: PE: GENERAL: Elderly black female in no acute distress, appears older than stated age, tremor. SKIN: Focused skin assessment warm and dry. HEENT: PERRLA, EOMI. No scleral icterus or conjunctival pallor. No lid lag or facial droop. CARDIOVASCULAR: Regular rate and rhythm. No obvious murmurs to auscultation. No chest tenderness to palpation. RESPIRATORY: No obvious rhonchi or wheezing. Clear to auscultation. Breath sounds equal bilaterally. GASTROINTESTINAL: Abdomen soft, non-tender, nondistended. BS normal. MUSCULOSKELETAL: Extremities without clubbing, cyanosis, or edema. No obvious deformities. NEUROLOGICAL: Awake, alert, oriented to person/place. No focal neurologic deficits. Moving both upper and lower extremities spontaneously. PSYCHIATRIC: Appropriate mood and affect. Insight and judgment normal. Results - Labs CBC & Chem 7: 04/14/18 20:05 04/14/18 20:05 Labs: Short CBC 04/14/18 Range/Units 20:05 WBC 9.4 (4.0-11.0) th/mm3 Hgb 9.6 L (11.6-15.3) gm/dL Hct 29.8 L (35.0-46.0) % Plt Count 273 D (150-450) th/mm3 BMP 04/14/18 20:05 Sodium 139 Potassium 4.0 Chloride 107 Carbon Dioxide 26.2 BUN 18 Creatinine 1.08 H Calcium 8.6 Cardiac Enzymes 04/14/18 Range/Units 20:05 Troponin I Less than 0.02 L (0.02-0.05) ng/mL Liver Function 04/14/18 Range/Units 20:05 Total Bilirubin 0.4 (0.2-1.0) mg/dL AST 18 (15-37) U/L ALT 17 (10-53) U/L Alkaline Phosphatase 77 (45-117) U/L Albumin 3.7 (3.4-5.0) g/dL Urine 04/14/18 Range/Units 21:10 Urine Color Yellow (Yellw/Straw) Urine Clarity Clear (Clear) Urine pH 5.0 (5.0-8.5) Ur Specific [place] 1.018 (1.002-1.035) Urine Protein Negative (Neg-Trace) mg/dL Urine Glucose (UA) Negative (Negative) mg/dL - Imaging Impressions Chest X-Ray 04/14/18 19:59 CONCLUSION: No acute cardiopulmonary disease demonstrated. Femur X-Ray 04/14/18 20:51 CONCLUSION: Intact right femur. Mild right hip osteoarthritis. Severe, medial compartment predominant right knee osteoarthritis. Pelvis X-Ray 04/14/18 20:51 CONCLUSION: Intact pelvis. Very mild bilateral hip osteoarthritis. Caprini VTE Risk Assessment Caprini VTE Risk Assessment: No/Low Risk (score <= 1) Caprini Risk Assessment Model: Point Value = 1 Point Value = 2 Point Value = 3 Point Value = 5 Age 41-60 Minor surgery BMI > 25 kg/m2 Swollen legs Varicose veins or History of unexplained or recurrent spontaneous Oral contraceptives or hormone replacement Sepsis (< 1 month) Serious lung disease, including pneumonia (< 1 month) Abnormal pulmonary function Acute myocardial infarction Congestive heart failure (< 1 month) History of inflammatory bowel disease Medical patient at bed rest Age 61-74 Arthroscopic surgery Major open surgery (> 45 min) Laparoscopic surgery (> 45 min) Malignancy Confined to bed (> 72 hours) Immobilizing plaster cast Central venous access Age >= 75 History of VTE Family history of VTE Factor V Leiden Prothrombin [id number] Lupus anticoagulant Anticardiolipin antibodies Elevated serum homocysteine Heparin-induced thrombocytopenia Other congenital or acquired thrombophilia Stroke (< 1 month) Elective arthroplasty Hip, pelvis, or leg fracture Acute spinal cord injury (< 1 month) Prophylaxis Regimen: Total Risk Factor Score Risk Level Prophylaxis Regimen 0-1 Low Early ambulation 2 Moderate Order ONE of the following: *Sequential Compression Device (SCD) *Heparin 5000 units SQ BID 3-4 Higher Order ONE of the following medications: *Heparin 5000 units SQ TID *Enoxaparin/Lovenox 40 mg SQ daily (WT < 150 kg, CrCl > 30 mL/min) *Enoxaparin/Lovenox 30 mg SQ daily (WT < 150 kg, CrCl > 10-29 mL/min) *Enoxaparin/Lovenox 30 mg SQ BID (WT < 150 kg, CrCl > 30 mL/min) AND/OR *Sequential Compression Device (SCD) 5 or more Highest Order ONE of the following medications: *Heparin 5000 units SQ TID (Preferred with Epidurals) *Enoxaparin/Lovenox 40 mg SQ daily (WT < 150 kg, CrCl > 30 mL/min) *Enoxaparin/Lovenox 30 mg SQ daily (WT < 150 kg, CrCl > 10-29 mL/min) *Enoxaparin/Lovenox 30 mg SQ BID (WT < 150 kg, CrCl > 30 mL/min) AND *Sequential Compression Device (SCD) Assessment and Plan - Assessment (1) Viral syndrome Code(s): B34.9 - Viral infection, unspecified Status: Acute (2) Weakness Code(s): R53.1 - Weakness Status: Acute (3) MARCEL (acute kidney injury) Code(s): N17.9 - Acute kidney failure, unspecified Status: Acute - Plan A/P: 1. Viral Syndrome: +temp 102.1, no obvious source of infection, likely viral etiology. CXR w/ no acute findings, images reviewed. U/a negative for UTI. Flu negative. Blood cultures x2 sent, will follow up results. Hold antibiotics at this time as no clear infectious source. +tachycardia, continue IVF for hydration. 2. MARCEL: Creatinine 1.08, previously 0.83 on 04/04/18, U/a negative as above, IVF for hydration, monitor I/O, repeat labs in am. 3. Weakness: normally uses walker and requires assistance w/ standing/ ambulating, however now unable to stand on her own. Recent admit for GI Bleed 04/03-04/05/18 s/p eval by PT w/ recommendation for [facility], will consult PT for eval/tx, pt will likely benefit from inpatient rehab, will await recommendations. 4. DVT Prophylaxis: SCD/Teds 5. Social work for d/c planning as needed. 6. Case discussed w/ ER physician at length, labs/records/imaging reviewed by me.
[2018-04-14] MEDS: Sod Chloride 0.9% Inj 1,000 ML IV.CONT SCH (23:58)
[2018-04-15] MEDS: risperiDONE 0.5 MG ODT PO SCH ×2 (01:54→20:23)
[2018-04-15 04:44] LABS: Baso # (Auto) 0.1 th/mm3 (0.0-0.2); Eos % (Auto) 0.3 % (0.0-4.0); Hemoglobin 9.6 gm/dL (11.6-15.3); Lymph # (Auto) 1.4 th/mm3 (1.0-4.8); Lymph % (Auto) 14.6 % (9.0-44.0); Mean Corpuscular HGB Conc 33.1 % (32.0-36.0); Mean Corpuscular Hemoglobin 31.3 pg (27.0-34.0); Mean Corpuscular Volume 94.6 fL (80.0-100.0); Mean Platelet Volume 7.4 fL (7.0-11.0); Mono # (Auto) 0.8 th/mm3 (0.0-0.9); Neut # (Auto) 7.4 th/mm3 (1.8-7.7); Neut % (Auto) 76.1 % (16.0-70.0); Platelet Count 284 th/mm3 (150-450); Red Blood Count 3.07 mil/mm3 (4.00-5.30); Red Cell Distribution Width 14.3 % (11.6-17.2); White Blood Count 9.7 th/mm3 (4.0-11.0)
[2018-04-15] MEDS: Acetaminophen 325 MG Tablet PO PRN ×2 (04:52→13:20)
[2018-04-15 05:14] LABS: Albumin 3.5 g/dL (3.4-5.0); Anion Gap 8 meq/L (5-15); Aspartate Aminotransferase 20 U/L (15-37); Blood Urea Nitrogen 14 mg/dL (7-18); Calcium 8.7 mg/dL (8.5-10.1); Carbon Dioxide 25.3 meq/L (21.0-32.0); Chloride 107 meq/L (98-107); Glomerular Filtration Rate 63 mL/min (>89); Glucose,Random 100 mg/dL (74-106); Potassium 3.8 meq/L (3.5-5.1); Sodium 140 meq/L (136-145)
[2018-04-15 05:18] LABS: Alanine Aminotransferase 17 U/L (10-53); Alkaline Phosphatase 73 U/L (45-117); Total Protein 7.1 g/dL (6.4-8.2)
--- NOTE | 2018-04-15 08:46 | P.PN ---
Subjective Interval history: Follow-up for weakness, viral illness. Patient is currently awake, alert, oriented to person, Irene, March 2018. She states she has just felt weak over the past day. She denies any fevers, does report chills overnight, although documented temperature of 101.4 this morning. She denies any cough, congestion, chest pain, shortness of breath, abdominal pain, nausea/vomiting, diarrhea, or urinary complaints. She does complain of a scratchy throat, but denies any odynophagia/dysphagia. She has not yet attempted ambulation. She has no other medical complaints at this time. Physical Exam Vital signs: Vital Signs 04/14/18 19:46 04/15/18 00:15 04/15/18 02:15 Temperature 102.1 F H Pulse Rate 108 H 124 H 102 H Respiratory Rate 18 22 Blood Pressure 151/80 H 170/80 H Pulse Oximetry 95 97 04/15/18 03:58 04/15/18 04:45 04/15/18 08:21 Temperature 101.4 F H 99.7 F H Pulse Rate 105 H 102 H 99 H Respiratory Rate 20 16 Blood Pressure 179/91 H 172/91 H Pulse Oximetry 96 95 Intake & Output 04/14/18 04/15/18 04/15/18 18:59 06:59 18:59 Intake Total 1000 / 1000 Output Total 950 / 950 200 / 200 Balance 50 / 50 -200 / -200 Weight 108.86 kg Intake: IV 1000 / 1000 NS Inj 1,000 ML @ 1000 mls/hr 1000 / 1000 IV.SIG BOLUS [facility] Rx#:[id number] Output: Urine 200 / 200 Urine Amount (Catheter) 950 / 950 Indwelling Urethral Catheter 950 / 950 Other: Date of Last Bowel Movement 04/14/18 Weight On Admission 108.86 kg Narrative: GENERAL: Well-nourished, well-developed patient in NAD. SKIN: Warm and dry. No rash. HEENT: Normocephalic. Atraumatic. Pupils equal and round. Mucous membranes pink and moist. Posterior oropharynx clear without any erythema/tonsillar edema /exudate. NECK: Supple. Trachea midline. CARDIOVASCULAR: Tachycardic, regular rhythm. No murmur appreciated. RESPIRATORY: No accessory muscle use. Clear to auscultation. Breath sounds equal bilaterally. GASTROINTESTINAL: Abdomen soft, non-tender, nondistended. Normoactive bowel sounds x4. MUSCULOSKELETAL: No obvious deformities. Extremities without clubbing, cyanosis , or edema. Tremor of right upper extremity. NEUROLOGICAL: Awake and alert. No obvious cranial nerve deficits. Motor grossly within normal limits. Moving all extremities spontaneously. Normal speech. PSYCHIATRIC: Appropriate mood and affect; insight and judgment normal. - Urinary Catheter Management Indwelling Urethral Catheter Cath placed during this visit: yes Reason for continuing: Acute urinary retention Insertion date: 04/14/18 Insertion time: 21:10 Results - Labs CBC & Chem 7: 04/15/18 04:11 04/15/18 04:11 Laboratory Results - last 24 hr 04/14/18 04/14/18 04/14/18 20:05 20:05 20:05 WBC 9.4 RBC 3.10 L Hgb 9.6 L Hct 29.8 L MCV 95.9 MCH 30.8 MCHC 32.1 RDW 14.2 Plt Count 273 D MPV 7.9 Neut % (Auto) 77.7 H Lymph % (Auto) 13.7 [place] % (Auto) 6.9 Eos % (Auto) 0.7 Baso % (Auto) 1.0 Neut # (Auto) 7.3 Lymph # (Auto) 1.3 [place] # (Auto) 0.7 Eos # (Auto) 0.1 Baso # (Auto) 0.1 WBC Differential . Differential Comment Auto diff final Sodium 139 Potassium 4.0 Chloride 107 Carbon Dioxide 26.2 Anion Gap 6 BUN 18 Creatinine 1.08 H Estimated GFR 60 L Random Glucose 91 Lactic Acid 1.2 Calcium 8.6 Magnesium 1.7 Total Bilirubin 0.4 AST 18 ALT 17 Alkaline Phosphatase 77 Troponin I Less than 0.02 L Total Protein 7.5 Albumin 3.7 Urine Color Urine Clarity Urine pH Ur Specific [place] Urine Protein Urine Glucose (UA) Urine Ketones Urine Occult Blood Urine Nitrate Urine Bilirubin Urine Urobilinogen Ur Leukocyte Esterase Urine RBC Urine WBC Urine Bacteria Micro UA Comment Ur Microscopic Review Urine Culture Comments 04/14/18 04/15/18 04/15/18 21:10 04:11 04:11 WBC 9.7 RBC 3.07 L Hgb 9.6 L Hct 29.0 L MCV 94.6 MCH 31.3 MCHC 33.1 RDW 14.3 Plt Count 284 MPV 7.4 Neut % (Auto) 76.1 H Lymph % (Auto) 14.6 [place] % (Auto) 8.0 Eos % (Auto) 0.3 Baso % (Auto) 1.0 Neut # (Auto) 7.4 Lymph # (Auto) 1.4 [place] # (Auto) 0.8 Eos # (Auto) 0.0 Baso # (Auto) 0.1 WBC Differential . Differential Comment Auto diff final Sodium 140 Potassium 3.8 Chloride 107 Carbon Dioxide 25.3 Anion Gap 8 BUN 14 Creatinine 1.04 H Estimated GFR 63 L Random Glucose 100 Lactic Acid Calcium 8.7 Magnesium Total Bilirubin 0.6 AST 20 ALT 17 Alkaline Phosphatase 73 Troponin I Total Protein 7.1 Albumin 3.5 Urine Color Yellow Urine Clarity Clear Urine pH 5.0 Ur Specific [place] 1.018 Urine Protein Negative Urine Glucose (UA) Negative Urine Ketones Negative Urine Occult Blood Small H Urine Nitrate Negative Urine Bilirubin Negative Urine Urobilinogen Less than 2 Ur Leukocyte Esterase Negative Urine RBC 1 Urine WBC Less than 1 Urine Bacteria Occasional H Micro UA Comment Cath-culture ind Ur Microscopic Review Not Reportable Urine Culture Comments Cath-cult indicated Microbiology 04/14/18 21:10 Nasal Wash Influenza Types A,B Antigen - Final Negative for FLU A and B antigen Infection due to influenza A or B cannot be ruled out since the antigen present in the sample may be below the detection limit of the test. - Imaging Impressions Chest X-Ray 04/14/18 19:59 CONCLUSION: No acute cardiopulmonary disease demonstrated. Femur X-Ray 04/14/18 20:51 CONCLUSION: Intact right femur. Mild right hip osteoarthritis. Severe, medial compartment predominant right knee osteoarthritis. Pelvis X-Ray 04/14/18 20:51 CONCLUSION: Intact pelvis. Very mild bilateral hip osteoarthritis. Assessment and Plan - Assessment (1) Viral syndrome Code(s): B34.9 - Viral infection, unspecified Status: Acute (2) Weakness Code(s): R53.1 - Weakness Status: Acute (3) MARCEL (acute kidney injury) Code(s): N17.9 - Acute kidney failure, unspecified Status: Acute - Plan 72-year-old with a PMH of HTN, CAD, Depression and Arthritis who was brought to the ER by EMS secondary to weakness. Acute Viral Syndrome with SIRS: +temp 102.1, no obvious source of bacterial infection, likely viral etiology. -CXR w/ no acute findings, images reviewed. -U/a negative for UTI. -Flu negative. -Blood cultures x2 sent, will follow up results. -Hold antibiotics at this time as no clear infectious source. -continue IVF for hydration. -Monitor for improvement MARCEL: Creatinine 1.08, previously 0.83 on 04/04/18 -U/a negative as above -Give IVF for hydration -monitor I/O -repeat labs in am. Weakness: normally uses walker and requires assistance w/ standing/ambulating, however now unable to stand on her own. -Recent admit for GI Bleed 04/03-04/05/18 s/p eval by PT w/ recommendation for [facility] -will consult PT for eval/tx, pt will likely benefit from inpatient rehab, will await recommendations. DVT Prophylaxis: SCD/Teds
[2018-04-15] MEDS: Senna/Docusate Sodium 8.6/50 MG Tablet PO SCH ×2 (09:24→20:24)
[2018-04-15] MEDS: Sod Chloride 0.9% Inj 1,000 ML IV.CONT SCH (11:06)
[2018-04-15] MEDS: Morphine Sulfate Inj 2 MG/ML Vial IV.PUSH PRN (17:17)
[2018-04-16] MEDS: Sod Chloride 0.9% Inj 1,000 ML IV.CONT SCH ×4 (01:09→14:39)
[2018-04-16] MEDS: Acetaminophen 325 MG Tablet PO PRN ×2 (02:13→21:19)
--- NOTE | 2018-04-16 06:48 | ECG ---
Date Performed: 04/14/2018 Time Performed: 20:04:04 PTAGE: 72 years EKG: SINUS TACHYCARDIA WITH OCCASIONAL VENTRICULAR PREMATURE COMPLEXES ABNORMAL RHYTHM ECG PREVIOUS TRACING : 04/03/2018 18.51 Since the previous tracing, no significant change noted DOCTOR: Tod Carroll Interpretating Date/Time 04/16/2018 06:46:40
[2018-04-16 08:10] LABS: Baso # (Auto) 0.1 th/mm3 (0.0-0.2); Baso % (Auto) 0.7 % (0.0-2.0); Eos # (Auto) 0.1 th/mm3 (0.0-0.4); Eos % (Auto) 0.5 % (0.0-4.0); Hematocrit 29.6 % (35.0-46.0); Hemoglobin 9.7 gm/dL (11.6-15.3); Lymph # (Auto) 1.7 th/mm3 (1.0-4.8); Lymph % (Auto) 12.8 % (9.0-44.0); Mean Corpuscular HGB Conc 32.7 % (32.0-36.0); Mean Corpuscular Hemoglobin 31.2 pg (27.0-34.0); Mean Corpuscular Volume 95.5 fL (80.0-100.0); Mean Platelet Volume 7.5 fL (7.0-11.0); Mono # (Auto) 1.4 th/mm3 (0.0-0.9); Mono % (Auto) 10.9 % (0.0-8.0); Neut # (Auto) 9.9 th/mm3 (1.8-7.7); Neut % (Auto) 75.1 % (16.0-70.0); Platelet Count 245 th/mm3 (150-450); Red Blood Count 3.11 mil/mm3 (4.00-5.30); Red Cell Distribution Width 14.6 % (11.6-17.2); White Blood Count 13.2 th/mm3 (4.0-11.0)
[2018-04-16] MEDS: Senna/Docusate Sodium 8.6/50 MG Tablet PO SCH ×3 (08:31→21:20)
[2018-04-16 08:36] LABS: Calcium 8.3 mg/dL (8.5-10.1); Carbon Dioxide 23.7 meq/L (21.0-32.0); Magnesium 1.8 mg/dL (1.5-2.5); Potassium 3.5 meq/L (3.5-5.1)
--- NOTE | 2018-04-16 08:48 | P.PN ---
Subjective Interval history: Follow-up for weakness, viral illness, fevers, Sirs. Patient complains of a sore throat today with some mild odynophagia, although still tolerating oral intake. Denies any changes in her voice. She denies feeling feverish, although continue documented low-grade fevers overnight. She reports a mild frontal headache that started sometime overnight, denies any neck pain or stiffness. Denies any congestion, cough, chest pain, shortness of breath, abdominal or urinary complaints. Physical Exam Vital signs: Vital Signs 04/15/18 09:00 04/15/18 13:03 04/15/18 16:05 Temperature 102.9 F H 100.3 F H Pulse Rate 124 H 103 H 102 H Respiratory Rate 16 16 Blood Pressure 181/87 H 188/80 H Pulse Oximetry 94 L 94 L 04/15/18 19:43 04/16/18 00:00 04/16/18 04:00 Temperature 100.2 F H 100.4 F H 98.1 F Pulse Rate 106 H 106 H 121 H Respiratory Rate 17 20 20 Blood Pressure 213/106 H 145/84 H 145/87 H Pulse Oximetry 100 91 L 04/16/18 07:39 Temperature 98.5 F Pulse Rate 94 H Respiratory Rate 20 Blood Pressure 143/80 H Pulse Oximetry 96 Intake & Output 04/15/18 04/16/18 04/16/18 18:59 06:59 18:59 Intake Total 1000 / 1000 1000 / 1000 Output Total 1200 / 1200 1700 / 1700 Balance -200 / -200 1000 / 1000 -1700 / -1700 Intake: IV 1000 / 1000 1000 / 1000 NS Inj 1,000 ML @ 100 mls/hr IV 1000 / 1000 1000 / 1000 .CONT .Q10H [facility] Rx#:[id number] Output: Urine 200 / 200 Urine Amount (Catheter) 1000 / 1000 1700 / 1700 Indwelling Urethral Catheter 1000 / 1000 1700 / 1700 Other: Date of Last Bowel Movement 04/14/18 Narrative: GENERAL: Well-nourished, well-developed elderly female patient in [facility]. SKIN: Warm and dry. No rash. HEENT: Normocephalic. Atraumatic. Pupils equal and round. Mucous membranes pink and moist. Posterior oropharynx clear without any erythema/tonsillar edema /exudate, although difficult to fully visualize due to body habitus despite use of tongue depressor. NECK: Supple. Trachea midline. CARDIOVASCULAR: Tachycardic, regular rhythm. No murmur appreciated. RESPIRATORY: No accessory muscle use. Clear to auscultation. Breath sounds equal bilaterally. GASTROINTESTINAL: Abdomen soft, non-tender, nondistended. Normoactive bowel sounds x4. MUSCULOSKELETAL: No obvious deformities. Extremities without clubbing, cyanosis , or edema. Tremor of right upper extremity. NEUROLOGICAL: Awake and alert. No obvious cranial nerve deficits. Motor grossly within normal limits. Moving all extremities spontaneously. Normal speech. PSYCHIATRIC: Appropriate mood and affect; insight and judgment normal. - Urinary Catheter Management Indwelling Urethral Catheter Cath placed during this visit: yes Reason for continuing: Acute urinary retention Insertion date: 04/14/18 Insertion time: 21:10 Results - Labs CBC & Chem 7: 04/16/18 05:56 04/16/18 05:56 Laboratory Results - last 24 hr 04/16/18 04/16/18 05:56 05:56 WBC 13.2 H RBC 3.11 L Hgb 9.7 L Hct 29.6 L MCV 95.5 MCH 31.2 MCHC 32.7 RDW 14.6 Plt Count 245 MPV 7.5 Neut % (Auto) 75.1 H Lymph % (Auto) 12.8 [place] % (Auto) 10.9 H Eos % (Auto) 0.5 Baso % (Auto) 0.7 Neut # (Auto) 9.9 H Lymph # (Auto) 1.7 [place] # (Auto) 1.4 H Eos # (Auto) 0.1 Baso # (Auto) 0.1 WBC Differential . Differential Comment Auto diff final Sodium 139 Potassium 3.5 Chloride 107 Carbon Dioxide 23.7 Anion Gap 8 BUN 11 Creatinine 0.96 Estimated GFR 69 L Random Glucose 87 Calcium 8.3 L Magnesium 1.8 Microbiology 04/14/18 20:00 Blood - Peripheral Aerobic Blood Culture - Preliminary No growth in 1 day 04/14/18 20:00 Blood - Peripheral Anaerobic Blood Culture - Preliminary No growth in 1 day 04/14/18 20:05 Blood - Peripheral Aerobic Blood Culture - Preliminary No growth in 1 day 04/14/18 20:05 Blood - Peripheral Anaerobic Blood Culture - Preliminary No growth in 1 day - Imaging Impressions Chest X-Ray 04/14/18 19:59 CONCLUSION: No acute cardiopulmonary disease demonstrated. Femur X-Ray 04/14/18 20:51 CONCLUSION: Intact right femur. Mild right hip osteoarthritis. Severe, medial compartment predominant right knee osteoarthritis. Pelvis X-Ray 04/14/18 20:51 CONCLUSION: Intact pelvis. Very mild bilateral hip osteoarthritis. Assessment and Plan - Assessment (1) Viral syndrome Code(s): B34.9 - Viral infection, unspecified Status: Acute (2) Weakness Code(s): R53.1 - Weakness Status: Acute (3) MARCEL (acute kidney injury) Code(s): N17.9 - Acute kidney failure, unspecified Status: Acute - Plan 72-year-old with a PMH of HTN, CAD, Depression and Arthritis who was brought to the ER by EMS secondary to weakness. Acute Viral Syndrome with SIRS: +temp 102.1, tachycardic HR up to 121, no obvious source of bacterial infection, likely viral etiology. -CXR w/ no acute findings, images reviewed. -U/a negative for UTI. -Flu negative. -Blood cultures x2 with no growth to date -Hold antibiotics at this time as no clear infectious source. -continue IVF for hydration. -check throat culture -repeat UA -Consult ID MARCEL: Creatinine 1.08, previously 0.83 on 04/04/18 -U/a negative as above -Give IVF for hydration -monitor I/O -repeat labs show improvement with Cr 0.96 Weakness: normally uses walker and requires assistance w/ standing/ambulating, however now unable to stand on her own. -Recent admit for GI Bleed 04/03-04/05/18 s/p eval by PT w/ recommendation for [facility] -consult PT, recommends rehab DVT Prophylaxis: SCD/Teds
--- NOTE | 2018-04-16 09:32 | P.CONID ---
History of Present Illness Service: Infectious disease Consult date: 04/16/18 Requesting Physician: Leonardo Shine Reason for Consult: Evaluate patient with fever Primary Care Provider: Gay Vo MD, R2 History of Present Illness: Patient seen and examined. Records reviewed. Patient is a 72-year-old female, lives at home with her daughter, brought into the hospital for evaluation of weakness. She is not a very good historian. She states she was not having any fevers at home. She is complaining of some sore throat. Denies any cough or any congestion. Denies any nausea or vomiting. She is constipated, and her normal bowel movement is at least once a week. Patient states she uses pull-up because she has incontinence. She denies any dysuria when the urine comes out. When she came in she had a normal urinalysis. Chest x-ray is normal. WBC is normal. LFTs are normal. Lactic acid is normal. She has had some fevers since admission, however this morning her temperature is normal. She has not been on any antibiotics. She is also complaining of some pain on her left knee. She has had x-rays of the femur, pelvis, and knee and a showed no fracture, and some evidence of osteoarthritis. Infectious disease consultation has been requested to assist with evaluation and treatment of fever. Review of Systems Constitutional: Reports fever(s), Reports weakness, Denies chills, Denies night sweats Eyes: Denies pain Ears, Nose, Mouth, and Throat: Reports sore throat, Denies difficulty swallowing , Denies dry mouth, Denies ear pain, Denies nasal discharge, Denies pain with swallowing, Denies throat swelling Cardiovascular: Denies chest pain, Denies shortness of breath Respiratory: Denies chest congestion, Denies cough, Denies shortness of breath Gastrointestinal: Reports abdominal pain, Reports constipation, Denies difficulty swallowing, Denies nausea, Denies pain with swallowing, Denies vomiting Genitourinary: Reports urinary incontinence, Denies painful urination, Denies urinary urgency Musculoskeletal: Reports joint pain Skin/Breast: Denies rash, Denies sores, Denies wounds Neurologic: Denies headache(s), Denies localized weakness PMFSH - History History Provided By: Patient - Medical History Medical History: Medical History (Last Reviewed 04/16/18 @ 09:27 by Alesia Siddiqui MD) Arthritis HTN (hypertension) Coronary artery disease Depression Tremor - Family History Family History: Family History (Last Reviewed 04/16/18 @ 09:27 by Alesia Siddiqui MD) Other Breast cancer - Tobacco History Second Hand Smoke Exposure: No Smoking Status: Never smoker Tobacco Type: Cigarettes - Alcohol History How Often Do You Have a Drink Containing Alcohol: Never - Substance Use History Substance History: No History of Abuse - Travel History Recent Travel in the [place] Within the Last 8 Weeks: No Recent Travel Out of the Country Within the Last 8 Weeks: No - Immunization History Tetanus Immunization: Unsure Medications and Allergies Active Medications: Active Medications Acetaminophen (Tylenol) 650 mg PO Q4H PRN PRN Reason: Temp > 100.4 Last Admin: 04/16/18 02:13 Dose: 650 mg Al Hydroxide/Mg Hydroxide (Milk Of Magnesia Liq) 30 ml PO Q12H PRN PRN Reason: Mild Constipation Bisacodyl (Dulcolax Supp) 10 mg RECTAL DAILY PRN PRN Reason: SEVERE CONSITIPATION Sodium Chloride (Ns Inj) 1,000 mls @ 100 mls/hr IV.CONT .Q10H [facility] Last Admin: 04/16/18 07:17 Dose: Not Given Lactulose (Lactulose Liq) 30 ml PO DAILY PRN PRN Reason: SEVERE CONSITIPATION Morphine Sulfate (Morphine Inj) 2 mg IV.PUSH Q4H PRN PRN Reason: PAIN 6-10 Last Admin: 04/15/18 17:17 Dose: 2 mg Ondansetron HCl (Zofran Inj) 4 mg IV.PUSH Q6H PRN PRN Reason: NAUSEA OR VOMITING Risperidone (Risperdal M-Tab) 0.5 mg PO HS [facility] Last Admin: 04/15/18 20:23 Dose: 0.5 mg Senna/Docusate Sodium (Syl-Colace) 1 tab PO BID [facility] Last Admin: 04/16/18 08:31 Dose: 1 tab Sennosides (Senokot) 17.2 mg PO Q12H PRN PRN Reason: Moderate Constipation Allergies Allergy/AdvReac Type Severity Reaction Status Date / Time iodine Allergy Mild Swelling Verified 04/14/18 19:54 potassium iodide Allergy Mild Swelling Verified 04/14/18 19:54 povidone-iodine Allergy Mild Swelling Verified 04/14/18 19:54 sodium iodide Allergy Mild Swelling Verified 04/14/18 19:54 sodium iodide Allergy Mild Swelling Verified 04/14/18 19:54 Home Medications Medication Instructions Recorded Confirmed Type potassium chloride 10 meq PO DAILY 04/03/18 04/14/18 History risperidone 0.5 mg PO HS 04/03/18 04/14/18 History trihexyphenidyl 2 mg PO TID 04/03/18 04/14/18 History Exam Vital signs: Vital Signs 04/15/18 13:03 04/15/18 16:05 04/15/18 19:43 Temperature 102.9 F H 100.3 F H 100.2 F H Pulse Rate 103 H 102 H 106 H Respiratory Rate 16 16 17 Blood Pressure 181/87 H 188/80 H 213/106 H Pulse Oximetry 94 L 94 L 100 04/16/18 00:00 04/16/18 04:00 04/16/18 07:39 Temperature 100.4 F H 98.1 F 98.5 F Pulse Rate 106 H 121 H 94 H Respiratory Rate 20 20 20 Blood Pressure 145/84 H 145/87 H 143/80 H Pulse Oximetry 91 L 96 Intake & Output 04/15/18 04/16/18 04/16/18 18:59 06:59 18:59 Intake Total 1000 / 1000 1000 / 1000 Output Total 1200 / 1200 1700 / 1700 Balance -200 / -200 1000 / 1000 -1700 / -1700 Intake: IV 1000 / 1000 1000 / 1000 NS Inj 1,000 ML @ 100 mls/hr IV 1000 / 1000 1000 / 1000 .CONT .Q10H [facility] Rx#:[id number] Output: Urine 200 / 200 Urine Amount (Catheter) 1000 / 1000 1700 / 1700 Indwelling Urethral Catheter 1000 / 1000 1700 / 1700 Other: Date of Last Bowel Movement 04/14/18 Narrative: Physical examination GENERAL: Patient is an obese, well-developed patient, awake and alert, not in respiratory distress. SKIN: Cool and dry. No generalized rash, no ecchymoses and no evidence of embolic lesions. HEAD: Atraumatic. Normocephalic. No temporal wasting, or tenderness. EYES: [place] conjunctiva. No petechia or hemorrhage. Pupils equal, round and reactive to light. Extraocular movements full and intact. No scleral icterus. No injection or drainage. EARS, NOSE AND THROAT: Nose without bleeding or purulent nasal discharge. No sinus tenderness. Mucous membranes pink and moist. She wears upper dentures. NO erythema noted in posterior pharynx, no exudate. No oral thrush. NECK: Trachea midline. Supple and not tender, no meningeal signs. NO lymphadenopathy CARDIOVASCULAR: Regular rate and rhythm. No murmurs, rubs or gallops heard RESPIRATORY: Clear to auscultation. Breath sounds equal bilaterally. No rales , wheezing or rhonchi. Decreased breath sounds at the bases. ABDOMEN: Soft, globular, has ventral hernia, above the umbilicus, reducible. The abdomen is non-tender, nondistended. Bowel sounds present and normoactive. No guarding. No rebound. No organomegaly. EXTREMITIES: No clubbing, cyanosis, or edema. No joint effusion, has good ROM on passive movement. No calf tenderness. NEUROLOGICAL: Awake and alert. Cranial nerves grossly intact. Motor grossly within normal limits. PSYCHIATRIC: Normal affect, calm and cooperative. LINE: No evidence of infection Results - Labs CBC & Chem 7: 04/16/18 05:56 04/16/18 05:56 Labs: Laboratory Results - last 24 hr 04/16/18 04/16/18 05:56 05:56 WBC 13.2 H RBC 3.11 L Hgb 9.7 L Hct 29.6 L MCV 95.5 MCH 31.2 MCHC 32.7 RDW 14.6 Plt Count 245 MPV 7.5 Neut % (Auto) 75.1 H Lymph % (Auto) 12.8 [place] % (Auto) 10.9 H Eos % (Auto) 0.5 Baso % (Auto) 0.7 Neut # (Auto) 9.9 H Lymph # (Auto) 1.7 [place] # (Auto) 1.4 H Eos # (Auto) 0.1 Baso # (Auto) 0.1 WBC Differential . Differential Comment Auto diff final Sodium 139 Potassium 3.5 Chloride 107 Carbon Dioxide 23.7 Anion Gap 8 BUN 11 Creatinine 0.96 Estimated GFR 69 L Random Glucose 87 Calcium 8.3 L Magnesium 1.8 - Imaging Chest X-Ray 04/14/18 19:59 CONCLUSION: No acute cardiopulmonary disease demonstrated. Femur X-Ray 04/14/18 20:51 CONCLUSION: Intact right femur. Mild right hip osteoarthritis. Severe, medial compartment predominant right knee osteoarthritis. Pelvis X-Ray 04/14/18 20:51 CONCLUSION: Intact pelvis. Very mild bilateral hip osteoarthritis. Assessment and Plan - Plan Impression Febrile illness, non-localizing except for some sore throat - throat exam unremarkable - temps trending down? - ?viral syndrome - has not been on Abx Knee pain, C/W OA Ventral hernia Recommendation Follow temps Follow C/S Monitor off Abx Will decide need for Abx depending on her clinical progress I will follow along with you Thank you for this consultation
[2018-04-16] MEDS: Morphine Sulfate Inj 2 MG/ML Vial IV.PUSH PRN ×2 (11:05→15:39)
[2018-04-16 11:35] LABS: Bilirubin,Urine Negative (Negative); Clarity,Urine Clear (Clear); Color,Urine Yellow (Yellw/Straw); Glucose,Urine (UA) Negative (Negative); Leukocyte Esterase,Urine Trace (Negative); Mucus,Urine Few /lpf (Occasional); Nitrite,Urine Negative (Negative); Specific Gravity,Urine 1.009 (1.002-1.035)
[2018-04-16] MEDS: dilTIAZem CD 240 MG Capsule PO SCH (19:27)
[2018-04-16] MEDS: risperiDONE 0.5 MG ODT PO SCH (21:19)
[2018-04-17] MEDS: Sod Chloride 0.9% Inj 1,000 ML IV.CONT SCH ×4 (04:13→23:24)
[2018-04-17] MEDS: Acetaminophen 325 MG Tablet PO PRN ×2 (04:18→15:33)
[2018-04-17 07:06] LABS: Baso # (Auto) 0.1 th/mm3 (0.0-0.2); Baso % (Auto) 0.6 % (0.0-2.0); Eos # (Auto) 0.3 th/mm3 (0.0-0.4); Hematocrit 27.2 % (35.0-46.0); Hemoglobin 8.9 gm/dL (11.6-15.3); Lymph # (Auto) 1.4 th/mm3 (1.0-4.8); Lymph % (Auto) 12.9 % (9.0-44.0); Mean Corpuscular HGB Conc 32.7 % (32.0-36.0); Mean Corpuscular Hemoglobin 31.4 pg (27.0-34.0); Mean Corpuscular Volume 96.2 fL (80.0-100.0); Mean Platelet Volume 7.1 fL (7.0-11.0); Mono # (Auto) 1.1 th/mm3 (0.0-0.9); Mono % (Auto) 9.6 % (0.0-8.0); Neut # (Auto) 8.3 th/mm3 (1.8-7.7); Neut % (Auto) 73.9 % (16.0-70.0); Platelet Count 230 th/mm3 (150-450); Red Blood Count 2.83 mil/mm3 (4.00-5.30); Red Cell Distribution Width 14.4 % (11.6-17.2); White Blood Count 11.2 th/mm3 (4.0-11.0)
[2018-04-17 07:19] LABS: Carbon Dioxide 23.2 meq/L (21.0-32.0); Magnesium 2.1 mg/dL (1.5-2.5); Potassium 3.6 meq/L (3.5-5.1)
--- NOTE | 2018-04-17 09:13 | P.PN ---
Subjective Interval history: Follow-up for fever/sores, sore throat, UTI. Patient reports feeling slightly better today. She has been afebrile this morning, last temperature 100.6 at 8 PM last night. She reports a continued scratchy throat but does get relief with Tylenol. She reports decreased oral intake due to the sore throat, willing to try Ensure shakes. Physical Exam Vital signs: Vital Signs 04/16/18 11:39 04/16/18 16:38 04/16/18 20:00 Temperature 98.6 F 98.5 F 100.6 F H Pulse Rate 90 95 H 102 H Respiratory Rate Blood Pressure 159/85 H 174/77 H 173/88 H Pulse Oximetry 98 96 97 04/17/18 00:00 04/17/18 03:51 04/17/18 08:25 Temperature 99.0 F 98.9 F 98.1 F Pulse Rate 86 87 90 Respiratory Rate 18 Blood Pressure 127/62 146/71 H 143/82 H Pulse Oximetry 92 L 97 98 Intake & Output 04/16/18 04/17/18 04/17/18 18:59 06:59 18:59 Intake Total 1000 / 1000 1000 / 1000 Output Total 1700 / 1700 Balance -700 / -700 1000 / 1000 Weight 108.86 kg Intake: IV 1000 / 1000 1000 / 1000 NS Inj 1,000 ML @ 100 mls/hr IV 1000 / 1000 1000 / 1000 .CONT .Q10H [facility] Rx#:[id number] Output: Urine Amount (Catheter) 1700 / 1700 Indwelling Urethral Catheter 1700 / 1700 Other: Date of Last Bowel Movement 04/14/18 04/14/18 Narrative: GENERAL: Well-nourished, well-developed pleasant elderly female patient in [facility]. SKIN: Warm and dry. No rash. HEENT: Normocephalic. Atraumatic. Pupils equal and round. Mucous membranes pink and moist. Posterior oropharynx clear without any erythema/tonsillar edema /exudate NECK: Supple. Trachea midline. CARDIOVASCULAR: Regular rate and rhythm. No murmur appreciated. RESPIRATORY: No accessory muscle use. Clear to auscultation. Breath sounds equal bilaterally. GASTROINTESTINAL: Abdomen soft, non-tender, nondistended. Normoactive bowel sounds x4. MUSCULOSKELETAL: No obvious deformities. Extremities without clubbing, cyanosis , or edema. Tremor of right upper extremity. NEUROLOGICAL: Awake and alert. No obvious cranial nerve deficits. Motor grossly within normal limits. Moving all extremities spontaneously. Normal speech. PSYCHIATRIC: Appropriate mood and affect; insight and judgment fair. - Urinary Catheter Management Indwelling Urethral Catheter Cath placed during this visit: yes Reason for continuing: Acute urinary retention Insertion date: 04/14/18 Insertion time: 21:10 Results - Labs CBC & Chem 7: 04/17/18 05:42 04/17/18 05:42 Laboratory Results - last 24 hr 04/16/18 04/17/18 04/17/18 11:10 05:42 05:42 WBC 11.2 H RBC 2.83 L Hgb 8.9 L Hct 27.2 L MCV 96.2 MCH 31.4 MCHC 32.7 RDW 14.4 Plt Count 230 MPV 7.1 Neut % (Auto) 73.9 H Lymph % (Auto) 12.9 [place] % (Auto) 9.6 H Eos % (Auto) 3.0 Baso % (Auto) 0.6 Neut # (Auto) 8.3 H Lymph # (Auto) 1.4 [place] # (Auto) 1.1 H Eos # (Auto) 0.3 Baso # (Auto) 0.1 WBC Differential . Differential Comment Auto diff final Sodium 139 Potassium 3.6 Chloride 108 H Carbon Dioxide 23.2 Anion Gap 8 BUN 11 Creatinine 0.79 Estimated GFR 86 L Random Glucose 90 Calcium 8.0 L Magnesium 2.1 Urine Color Yellow Urine Clarity Clear Urine pH 5.0 Ur Specific [place] 1.009 Urine Protein Negative Urine Glucose (UA) Negative Urine Ketones Negative Urine Occult Blood Small H Urine Nitrate Negative Urine Bilirubin Negative Urine Urobilinogen Less than 2 Ur Leukocyte Esterase Trace H Urine RBC 1 Urine WBC 3 Urine Mucus Few H Micro UA Comment Cath-culture not ind Ur Microscopic Review Not Reportable Urine Culture Comments Cath-cult not ind Microbiology 04/14/18 21:10 Catheterized Urine Urine Culture - Preliminary Staphylococcus coag negative 04/14/18 20:00 Blood - Peripheral Aerobic Blood Culture - Preliminary No growth in 2 days 04/14/18 20:00 Blood - Peripheral Anaerobic Blood Culture - Preliminary No growth in 2 days 04/14/18 20:05 Blood - Peripheral Aerobic Blood Culture - Preliminary No growth in 2 days 04/14/18 20:05 Blood - Peripheral Anaerobic Blood Culture - Preliminary No growth in 2 days - Imaging Chest X-Ray 04/14/18 19:59 CONCLUSION: No acute cardiopulmonary disease demonstrated. Femur X-Ray 04/14/18 20:51 CONCLUSION: Intact right femur. Mild right hip osteoarthritis. Severe, medial compartment predominant right knee osteoarthritis. Pelvis X-Ray 04/14/18 20:51 CONCLUSION: Intact pelvis. Very mild bilateral hip osteoarthritis. Assessment and Plan - Assessment (1) Viral syndrome Code(s): B34.9 - Viral infection, unspecified Status: Acute (2) Weakness Code(s): R53.1 - Weakness Status: Acute (3) MARCEL (acute kidney injury) Code(s): N17.9 - Acute kidney failure, unspecified Status: Acute - Plan 72-year-old with a PMH of HTN, CAD, Depression and Arthritis who was brought to the ER by EMS secondary to weakness. Acute Viral Syndrome/Strep Throat with Sepsis: +temp 102.1, tachycardic HR up to 121, likely viral etiology in combination with strep throat -CXR w/ no acute findings, images reviewed. -U/a negative for UTI. -Flu negative. -Blood cultures x2 with no growth to date -continue IVF for hydration. -throat culture with strep, see below -repeat UA unremarkable -Consult ID, appreciate assistance -Symptoms improving, afebrile today. Strep Throat: throat culture positive for strep -start on Augmentin 1tab po bid x7days MARCEL: Creatinine 1.08, previously 0.83 on 04/04/18 -U/a negative as above -Give IVF for hydration -monitor I/O -repeat labs show improvement Weakness: normally uses walker and requires assistance w/ standing/ambulating, however now unable to stand on her own. -Recent admit for GI Bleed 04/03-04/05/18 s/p eval by PT w/ recommendation for HHC -consult PT, recommends rehab -Add Ensure to meals Abnormal urine culture: -Preliminary urine culture with Staphylococcus coagulase-negative -We will await ID input before initiating antibiotics DVT Prophylaxis: SCD/Teds
[2018-04-17] MEDS: dilTIAZem CD 240 MG Capsule PO SCH (10:00)
[2018-04-17] MEDS: Senna/Docusate Sodium 8.6/50 MG Tablet PO SCH ×3 (10:00→22:28)
[2018-04-17] MEDS: Amoxicillin/Clavulanate 875/125 MG Tablet PO SCH ×2 (16:27→22:26)
[2018-04-17] MEDS: risperiDONE 0.5 MG ODT PO SCH (22:26)
[2018-04-18] MEDS: Sod Chloride 0.9% Inj 1,000 ML IV.CONT SCH ×2 (02:26→09:07)
[2018-04-18 07:04] LABS: Baso % (Auto) 0.5 % (0.0-2.0); Eos # (Auto) 0.3 th/mm3 (0.0-0.4); Hematocrit 28.9 % (35.0-46.0); Hemoglobin 9.2 gm/dL (11.6-15.3); Lymph # (Auto) 1.4 th/mm3 (1.0-4.8); Lymph % (Auto) 16.9 % (9.0-44.0); Mean Corpuscular HGB Conc 31.8 % (32.0-36.0); Mean Corpuscular Hemoglobin 30.7 pg (27.0-34.0); Mean Corpuscular Volume 96.7 fL (80.0-100.0); Mean Platelet Volume 7.6 fL (7.0-11.0); Mono # (Auto) 0.9 th/mm3 (0.0-0.9); Mono % (Auto) 10.4 % (0.0-8.0); Neut # (Auto) 5.9 th/mm3 (1.8-7.7); Neut % (Auto) 69.2 % (16.0-70.0); Platelet Count 233 th/mm3 (150-450); Red Blood Count 2.98 mil/mm3 (4.00-5.30); Red Cell Distribution Width 14.5 % (11.6-17.2); White Blood Count 8.5 th/mm3 (4.0-11.0)
[2018-04-18 07:20] LABS: Anion Gap 10 meq/L (5-15); Blood Urea Nitrogen 10 mg/dL (7-18); Carbon Dioxide 22.9 meq/L (21.0-32.0); Chloride 110 meq/L (98-107); Glomerular Filtration Rate Greater Than 89 mL/min (>89); Glucose,Random 102 mg/dL (74-106); Potassium 3.7 meq/L (3.5-5.1); Sodium 143 meq/L (136-145)
[2018-04-18] MEDS ORDERED: Benzocaine/Menthol 15 MG/3.6 MG SF Lozenge BUCCAL PRN (09:03)
--- NOTE | 2018-04-18 09:07 | P.DS ---
Date of admission: 04/14/18 23:20 Primary care physician: Gay Vo MD, R2 Attending physician on discharge: Leonardo Mcguire Anticipated date of discharge: 04/18/18 Brief History from admission: This is a 72-year-old with a PMH of HTN, CAD, Depression and Arthritis who was brought to the ER by EMS secondary to weakness. Pt very poor historian, unable to obtain significant history. Per report, pt requires significant amount of assistance and ambulates w/ walker at baseline. Today, pt reportedly unable to stand due to profound weakness. Recent admit 04/03-04/05/18 for GI Bleed, s/p Colonoscopy w/ significant diverticular disease thought to be source of bleeding , EGD w/ esophageal ring s/p dilatation. No reports of recurrent bleed. On arrival, BP 151/80, HR 108, O2 sat 95% on RA, Temp 102.1. CBC unremarkable. Creatinine 1.08, previously 0.83 on 04/04/2018. Troponin negative. Lactic Acid 1.2. UA negative for UTI. Femur X-ray intact, mild right hip osteoarthritis, severe medial compartment right knee osteoarthritis. Pelvis X- ray intact. While in ER, pt w/ persistent tachycardia. Flu negative. S/p Blood Cultures. Patient update on day of discharge: Follow-up for sepsis with fever, strep throat, viral syndrome. The patient reports feeling much better today after being started on Augmentin yesterday for her strep throat. She states she is able to swallow better. She is tolerating oral intake. She has remained afebrile. Denies any other medical complaints including no chest pain, shortness of breath, or abdominal complaints. She feels ready to go to rehab. DS: Diagnosis - Discharge Diagnosis (1) Viral syndrome Status: Acute (2) Weakness Status: Acute (3) MARCEL (acute kidney injury) Status: Acute DS: Medications - Discharge Medications Prescriptions: amoxicillin-pot clavulanate 1 tab PO Q12HR 7 Days tab DS: Summary Hospital Course: 72-year-old with a PMH of HTN, CAD, Depression and Arthritis who was brought to the ER by EMS secondary to weakness. Acute Viral Syndrome/Strep Throat with Sepsis: +temp 102.1, tachycardic HR up to 121, likely viral etiology in combination with strep throat. CXR w/ no acute findings, images reviewed. U/a negative for UTI and urine culture with no growth. Flu negative. Blood cultures x2 with no growth to date. Given IVF for hydration. Throat culture positive for group C strep, started on augmentin bid x7days. Consult ID, appreciate assistance. Symptoms much improved after starting on Augmentin. Now afebrile. Stable for discharge to SNF. MARCEL: Creatinine 1.08, previously 0.83 on 04/04/18. U/a negative as above. Given IVF for hydration. Repeat labs show improvement with Cr. 0.71. Resolved. Weakness: normally uses walker and requires assistance w/ standing/ambulating, however now unable to stand on her own. Likely multifactorial with viral syndrome/strep throat in combination with recent admit for GI Bleed 04/03-. Consult PT, recommends rehab. Add Ensure to meals. Case management assisting with discharge to SNF. - Time Spent with Patient Total time spent providing and/or coordinating discharge services: Greater than 30 minutes - Quality: VTE Deep Vein Thrombosis/Pulmonary Embolism Present on Admission: No Exam Vital signs: Vital Signs 04/17/18 11:55 04/17/18 17:04 04/17/18 19:55 Temperature 98.2 F 99.3 F Pulse Rate 82 85 91 H Respiratory Rate 18 18 20 Blood Pressure 155/85 H 137/65 127/63 Pulse Oximetry 95 95 96 04/18/18 00:00 04/18/18 03:39 04/18/18 07:54 Temperature 98.7 F 98.6 F 98.4 F Pulse Rate 83 104 H 84 Respiratory Rate 20 20 20 Blood Pressure 137/74 165/79 H 160/69 H Pulse Oximetry 95 96 96 Intake & Output 04/17/18 04/18/18 04/18/18 18:59 06:59 18:59 Intake Total 1480 / 1480 Output Total 1150 / 1150 2400 / 2400 Balance -1150 / -1150 -920 / -920 Intake: IV 1000 / 1000 NS Inj 1,000 ML @ 100 mls/hr IV 1000 / 1000 .CONT .Q10H [facility] Rx#:[id number] Oral 480 / 480 Output: Urine 1150 / 1150 2400 / 2400 Other: Date of Last Bowel Movement 04/14/18 04/17/18 # Bowel Movements 0 Narrative: GENERAL: Well-nourished, well-developed pleasant elderly female patient in [facility]. SKIN: Warm and dry. No rash. HEENT: Normocephalic. Atraumatic. Pupils equal and round. Mucous membranes pink and moist. Posterior oropharynx clear without any erythema/tonsillar edema /exudate NECK: Supple. Trachea midline. Nontender. CARDIOVASCULAR: Regular rate and rhythm. No murmur appreciated. RESPIRATORY: No accessory muscle use. Clear to auscultation. Breath sounds equal bilaterally. GASTROINTESTINAL: Abdomen soft, non-tender, nondistended. Normoactive bowel sounds x4. MUSCULOSKELETAL: No obvious deformities. Extremities without clubbing, cyanosis , or edema. Tremor of right upper extremity. NEUROLOGICAL: Awake and alert. No obvious cranial nerve deficits. Motor grossly within normal limits. Moving all extremities spontaneously. Normal speech. PSYCHIATRIC: Appropriate mood and affect; insight and judgment fair. Results Procedures completed during hospitalization: None. Labs on day of discharge: Labs from last 24 hours 04/18/18 04/18/18 06:13 06:13 WBC 8.5 RBC 2.98 L Hgb 9.2 L Hct 28.9 L MCV 96.7 MCH 30.7 MCHC 31.8 L RDW 14.5 Plt Count 233 MPV 7.6 Neut % (Auto) 69.2 Lymph % (Auto) 16.9 [place] % (Auto) 10.4 H Eos % (Auto) 3.0 Baso % (Auto) 0.5 Neut # (Auto) 5.9 Lymph # (Auto) 1.4 [place] # (Auto) 0.9 Eos # (Auto) 0.3 Baso # (Auto) 0.0 WBC Differential . Differential Comment Auto diff final Sodium 143 Potassium 3.7 Chloride 110 H Carbon Dioxide 22.9 Anion Gap 10 BUN 10 Creatinine 0.71 Estimated GFR Greater than 89 Random Glucose 102 Calcium 8.0 L Preliminary micro results at discharge 04/14/18 20:00 Aerobic Blood Culture - Preliminary Blood - Peripheral No growth in 3 days Anaerobic Blood Culture - Preliminary No growth in 3 days 04/14/18 20:05 Aerobic Blood Culture - Preliminary Blood - Peripheral No growth in 3 days Anaerobic Blood Culture - Preliminary No growth in 3 days - Impressions ITS Impressions Chest X-Ray 04/14/18 19:59 CONCLUSION: No acute cardiopulmonary disease demonstrated. Femur X-Ray 04/14/18 20:51 CONCLUSION: Intact right femur. Mild right hip osteoarthritis. Severe, medial compartment predominant right knee osteoarthritis. Pelvis X-Ray 04/14/18 20:51 CONCLUSION: Intact pelvis. Very mild bilateral hip osteoarthritis. Discharge Plan - Discharge Disposition Patient Disposition: Discharge to SNF - Discharge Condition Condition: Stable - Discharge Order Discharge Orders: Discharge Order (Routine); Ordered 04/18/18 Ordered By: Velma Hdez - Discharge Details Anticipated Discharge Date: 04/18/18 - Physicians Team Primary Care Provider: Gay Vo Attending Provider: Leonardo Mcguire Other Providers: [employer],Insurance ; Alesia Siddiqui MD ; [facility] ,[place]
[2018-04-18] MEDS: dilTIAZem CD 240 MG Capsule PO SCH (09:22)
[2018-04-18] MEDS: Senna/Docusate Sodium 8.6/50 MG Tablet PO SCH (09:22)
[2018-04-18] MEDS: Amoxicillin/Clavulanate 875/125 MG Tablet PO SCH (09:22)
== END 2018-04-18 11:55 ==
LOC: NEPC 19:35 → NEDA 23:20 → INTOOBSV 23:20 → NEPFCDU 04-15 02:05
PROVIDERS: ADMIT Hospitalist; ATTEND Hospitalist

== ENCOUNTER 2018-05-16 21:05 | Inpatient (IN) ==
[2018-05-16] MEDS ORDERED: Sodium Chlor 0.9% Inj 250 ML IV.SIG ONE (21:32)
--- NOTE | 2018-05-16 21:32 | ED ---
HPI General Chief complaint: Weakness Stated complaint: General Weakness Time Seen by Provider: 05/16/18 21:19 Source: patient Limitations: no limitations History of Present Illness HPI narrative: The patient is a 72 year old female who presents to the [facility] emergency department with a history of generalized weakness that reportedly began earlier today. The patient reportedly lives at home alone, however her daughter checks on her regularly. Her daughter came to check on her this afternoon and noted that she was not able to get up and walk like she normally does with her walker. The patient reports that she was recently released from rehabilitation after an admission to the hospital. She is unsure why she was admitted to the hospital. The patient reports that she has had multiple episodes of diarrhea throughout the day today. She reports that she was on antibiotics within the last month. She denies having any other known sick contacts. She denies having any nausea or vomiting. She denies having any chest pain or chest pressure, however she does have some reported shortness of breath with exertion. She denies having any known recent fevers, cough or congestion. She denies having any one sided weakness, slurred speech, facial droop, or difficulty with word finding ability. On review of systems otherwise , the patient denies having any neck pain, abdominal pain, vomiting, urinary symptoms, or other neurologic symptoms. The patient reports that she is incontinent and uses a brief. Related Data Home Medications Medication Instructions Recorded Confirmed potassium chloride 10 meq PO DAILY 04/03/18 05/16/18 risperidone 0.5 mg PO HS 04/03/18 05/16/18 trihexyphenidyl 2 mg PO TID 04/03/18 05/16/18 diltiazem HCl 240 mg PO DAILY 04/16/18 05/16/18 Allergies Allergy/AdvReac Type Severity Reaction Status Date / Time iodine Allergy Mild Swelling Verified 05/16/18 21:21 potassium iodide Allergy Mild Swelling Verified 05/16/18 21:21 povidone-iodine Allergy Mild Swelling Verified 05/16/18 21:21 sodium iodide Allergy Mild Swelling Verified 05/16/18 21:21 sodium iodide Allergy Mild Swelling Verified 05/16/18 21:21 Review of Systems ROS: all other systems reviewed are negative [facility] Medical History Medical History Arthritis (Acute) Coronary artery disease (Acute) Depression (Acute) HTN (hypertension) (Acute) Tremor (Acute) Family History Family History Other Breast cancer Social History Social History Substance History: No History of Abuse Second Hand Smoke Exposure: No Smoking Status: Never smoker Tobacco Type: Cigarettes How Often Do You Have a Drink Containing Alcohol: Never Recent Travel in [facility] within the Last 8 Weeks: No Recent Out of Country Travel within the Last 8 Weeks: No Immunization History Tetanus Immunization: >5 Years Exam Const General: cooperative, no acute distress and well developed Nutritional Appearance: well nourished Orientation: alert, awake and oriented x3 HENMT Head: normocephalic and atraumatic Nose: no nasal discharge and no epistaxis Mouth: moist mucous membranes Throat: posterior oropharynx normal and uvula midline Eyes Sclera: normal sclerae Pupils: PERRL Neck Neck: no meningeal signs, trachea midline and no JVD Resp Effort & Inspection: no use of accessory muscles Auscultation: clear to auscultation bilaterally Cardio Rate: tachycardic (Sinus tachycardia in the low 100s. No pulse deficits to the extremities on simultaneous auscultation and palpation of her radial artery) Rhythm: regular rhythm Heart Sounds: no gallops, no murmurs and no rubs GI Inspection: distended (Distended related to central obesity with a prominent palpable ventral abdominal hernia that is nontender on palpation.) Palpation: soft, no hepatosplenomegaly, no guarding, not rigid and nontender Auscultation: normal bowel sounds Back/Spine/Pelvis Back: no CVA tenderness Skin General: dry skin (warm) Neuro General: alert, awake and oriented x3 Cranial Nerves: CN's II-XI intact bilaterally Speech: speech normal Motor: no movement abnormalities noted and strength abnormal (The patient has 5/ 5 strength in bilateral lower extremities, 4/5 strength in bilateral lower extremities.) Sensory Exam: no sensory deficits noted Extrem General: normal to inspection (2+ pulses in all 4 extremities), no calf tenderness, no clubbing, no cyanosis and edema (1-2+ pitting edema bilateral lower extremities that the patient reports is actually improved compared to her previous level of edema) Laterality: bilaterally Psych Mood: congruent mood Affect: normal affect Judgment: judgment good Course Initial Documented Vital Signs Temperature 99.6 F 05/16/18 21:14 Pulse Rate 106 H 05/16/18 21:14 Respiratory Rate 17 05/16/18 21:14 Blood Pressure 135/74 05/16/18 21:14 Pulse Oximetry 97 05/16/18 21:14 Last Documented Vital Signs Temperature 99.6 F 05/16/18 21:14 Pulse Rate 90 05/16/18 21:18 Respiratory Rate 20 05/16/18 21:18 Blood Pressure 129/68 05/16/18 21:18 Pulse Oximetry 97 05/16/18 21:14 Medical Decision Making MDM Narrative Medical decision making narrative: During the course of the patient's emergency department visit, the patient's history, examination, and differential diagnosis were reviewed with the patient. The patient was placed on a night monitor with oximetry and frequent blood pressure monitoring. The patient had IV access obtained and blood work sent for analysis. A diagnostic evaluation was started regarding the patient's generalized weakness. A call was placed out to the patient's daughter on record. I spoke to Amy Rob at her contact number. She reports that she is currently staying with her mother and reports a history of her being confused since last night. She reports that she was trying to use the bathroom in the living room. Ports that today she became more weak and was unable to get up out of the chair. She reports that she was unable to assist her mother up, thus she caused ambulance services. The patient was initially provided normal saline at 250 mL bolus x1. The patient's diagnostic studies are remarkable for a white count of 7.7, hemoglobin 9.6, platelets 304 with 75 neutrophils, PT 12.1, INR 1.2, PTT 22.2, chemistries remarkable for chloride of 109, creatinine 1.24 which is increased compared to her prior creatinine of 0.71. She could have a mild component of dehydration. Glucose is 96, lactic acid within normal limits at 1.7, initial set of cardiac enzymes are within normal limits. BNP is within normal limits. Urinalysis is unremarkable chest x-ray shows no acute cardiopulmonary disease, CT scan of the brain shows no acute abnormality. The patient's case including history, pertinent physical examination findings, and laboratory studies were discussed with Dr. Toscano, the resident. It was agreed that the patient would be admitted to the FP service. The patient's results were discussed with the patient, including the plan of care. I explained that further testing and/ or monitoring is indicated based on the patient's history, examination, and/ or laboratory findings. Therefore, I recommended admission for additional evaluation. The patient expressed understanding and was agreeable with this plan. The patient was admitted to the hospital in stable condition and sent to a bed under the care of FP resident's service. Medical Screen Exam Complete: Yes Emergency Medical Condition: Yes Differential Diagnosis Differential Diagnosis: Dehydration, versus UTI, versus colitis, versus acute coronary syndrome, versus electrolyte derangement Medical Records Medical records reviewed: Yes I reviewed the patient's medical records. Lab Data Lab results reviewed: Yes I reviewed the patient's lab results. Result diagrams: 05/16/18 21:50 05/16/18 21:50 Lab Results 05/16/18 05/16/18 05/16/18 Range/Units 21:50 21:50 21:50 WBC 7.7 (4.0-11.0) th/mm3 RBC 3.21 L (4.00-5.30) mil/mm3 Hgb 9.6 L (11.6-15.3) gm/dL Hct 29.4 L (35.0-46.0) % MCV 91.6 (80.0-100.0) fL MCH 29.9 (27.0-34.0) pg MCHC 32.6 (32.0-36.0) % RDW 15.0 (11.6-17.2) % Plt Count 304 D (150-450) th/mm3 MPV 7.6 (7.0-11.0) fL Neut % (Auto) 75.0 H (16.0-70.0) % Lymph % (Auto) 15.8 (9.0-44.0) % [place] % (Auto) 7.9 (0.0-8.0) % Eos % (Auto) 0.2 (0.0-4.0) % Baso % (Auto) 1.1 (0.0-2.0) % Neut # (Auto) 5.8 (1.8-7.7) th/mm3 Lymph # (Auto) 1.2 (1.0-4.8) th/mm3 [place] # (Auto) 0.6 (0.0-0.9) th/mm3 Eos # (Auto) 0.0 (0.0-0.4) th/mm3 Baso # (Auto) 0.1 (0.0-0.2) th/mm3 WBC Differential . Differential Comment Auto diff final PT 12.1 H (9.8-11.6) sec INR 1.2 Ratio APTT 22.2 L (23.4-31.7) sec Sodium (136-145) meq/L Potassium (3.5-5.1) meq/L Chloride (98-107) meq/L Carbon Dioxide (21.0-32.0) meq/L Anion Gap (5-15) meq/L BUN (7-18) mg/dL Creatinine (0.50-1.00) mg/dL Estimated GFR (>89) mL/min Random Glucose (74-106) mg/dL Lactic Acid (0.4-2.0) mmol/L Calcium (8.5-10.1) mg/dL Magnesium (1.5-2.5) mg/dL Total Bilirubin (0.2-1.0) mg/dL AST (15-37) U/L ALT (10-53) U/L Alkaline Phosphatase (45-117) U/L Total Creatine Kinase (26-192) U/L CK-MB (CK-2) (0.5-3.6) ng/mL CK-MB (CK-2) % (0.0-4.0) % Troponin I (0.02-0.05) ng/mL B-Natriuretic Peptide 13 (0-100) pg/mL Total Protein (6.4-8.2) g/dL Albumin (3.4-5.0) g/dL Urine Color (Yellw/Straw) Urine Clarity (Clear) Urine pH (5.0-8.5) Ur Specific [place] (1.002-1.035) Urine Protein (Neg-Trace) mg/dL Urine Glucose (UA) (Negative) mg/dL Urine Ketones (Negative) mg/dL Urine Occult Blood (Negative) Urine Nitrate (Negative) Urine Bilirubin (Negative) Urine Urobilinogen (Less than 2) mg/dL Ur Leukocyte Esterase (Negative) Urine RBC (0-3) /hpf Urine WBC (0-5) /hpf Ur Squamous Epith Cells (0-5) /hpf Amorphous Sediment (None) /hpf Hyaline Casts (0-3) /lpf Granular Casts (None) /lpf Urine Mucus (Occasional) /lpf Micro UA Comment Ur Microscopic Review Urine Culture Comments 05/16/18 05/16/18 05/16/18 Range/Units 21:50 21:50 23:16 WBC (4.0-11.0) th/mm3 RBC (4.00-5.30) mil/mm3 Hgb (11.6-15.3) gm/dL Hct (35.0-46.0) % MCV (80.0-100.0) fL MCH (27.0-34.0) pg MCHC (32.0-36.0) % RDW (11.6-17.2) % Plt Count (150-450) th/mm3 MPV (7.0-11.0) fL Neut % (Auto) (16.0-70.0) % Lymph % (Auto) (9.0-44.0) % [place] % (Auto) (0.0-8.0) % Eos % (Auto) (0.0-4.0) % Baso % (Auto) (0.0-2.0) % Neut # (Auto) (1.8-7.7) th/mm3 Lymph # (Auto) (1.0-4.8) th/mm3 [place] # (Auto) (0.0-0.9) th/mm3 Eos # (Auto) (0.0-0.4) th/mm3 Baso # (Auto) (0.0-0.2) th/mm3 WBC Differential Differential Comment PT (9.8-11.6) sec INR Ratio APTT (23.4-31.7) sec Sodium 144 (136-145) meq/L Potassium 3.5 (3.5-5.1) meq/L Chloride 109 H (98-107) meq/L Carbon Dioxide 22.5 (21.0-32.0) meq/L Anion Gap 13 (5-15) meq/L BUN 16 (7-18) mg/dL Creatinine 1.24 H (0.50-1.00) mg/dL Estimated GFR 51 L (>89) mL/min Random Glucose 96 (74-106) mg/dL Lactic Acid 1.7 (0.4-2.0) mmol/L Calcium 8.9 (8.5-10.1) mg/dL Magnesium 1.7 (1.5-2.5) mg/dL Total Bilirubin 0.5 (0.2-1.0) mg/dL AST 30 (15-37) U/L ALT 17 (10-53) U/L Alkaline Phosphatase 82 (45-117) U/L Total Creatine Kinase 360 H (26-192) U/L CK-MB (CK-2) 4.7 H (0.5-3.6) ng/mL CK-MB (CK-2) % 1.3 (0.0-4.0) % Troponin I Less than 0.02 L (0.02-0.05) ng/mL B-Natriuretic Peptide (0-100) pg/mL Total Protein 7.6 (6.4-8.2) g/dL Albumin 3.6 (3.4-5.0) g/dL Urine Color Kera (Yellw/Straw) Urine Clarity Hazy H (Clear) Urine pH 5.0 (5.0-8.5) Ur Specific [place] 1.026 (1.002-1.035) Urine Protein 30 H (Neg-Trace) mg/dL Urine Glucose (UA) Negative (Negative) mg/dL Urine Ketones 20 (Negative) mg/dL Urine Occult Blood Negative (Negative) Urine Nitrate Negative (Negative) Urine Bilirubin Negative (Negative) Urine Urobilinogen 2.0 H (Less than 2) mg/dL Ur Leukocyte Esterase Negative (Negative) Urine RBC 5 H (0-3) /hpf Urine WBC 3 (0-5) /hpf Ur Squamous Epith Cells <1 (0-5) /hpf Amorphous Sediment Rare H (None) /hpf Hyaline Casts 24 (0-3) /lpf Granular Casts 4 (None) /lpf Urine Mucus Moderate H (Occasional) /lpf Micro UA Comment Cath-culture not ind Ur Microscopic Review Not Reportable Urine Culture Comments Cath-cult not ind Imaging Data Radiologist's impression: Chest X-Ray 05/16/18 21:21 CONCLUSION: 1. No acute cardiopulmonary disease. Head CT 05/16/18 21:23 CONCLUSION: 1. No acute cardiopulmonary disease demonstrated. 2. Atrophy and chronic white matter changes. . ECG Data Attestation: I personally reviewed and interpreted this ECG as follows: Interpretation: The patient had an EKG done on arrival. The patient's EKG reveals a heart rate of 103, QRS duration is 92 ms, QTC [address] segment elevation. No evidence of ischemia. Discharge Plan Discharge Disposition Patient Disposition: ED Admit(ED Internal Use Only) Discharge Order Discharge Orders: ED Use Only Admit Order (Routine); Ordered 05/17/18 Ordered By: Robyn Bernard Discharge Details Diagnosis: Altered mental status, Weakness, Dehydration Physicians Team ED Provider: Robyn Bernard Primary Care Provider: UNKNOWN, Rxs /Orders / Referrals /Forms Prescriptions: No Action potassium chloride 10 mEq Capsule, Extended Release 10 meq PO DAILY RF: 0 trihexyphenidyl 2 mg Tablet 2 mg PO TID RF: 0 risperidone 0.5 mg Tablet,Disintegrating 0.5 mg PO HS RF: 0 diltiazem HCl 240 mg Capsule,Extended Release 24 Hr 240 mg PO DAILY RF: 0 Status ED Status: With Doctor
--- NOTE | 2018-05-16 21:39 | XR ---
EXAM DATE: 05/16/2018 9:36 PM EST AGE/SEX: 72 years / Female INDICATIONS: Chest pain CLINICAL DATA: This is the patient's initial encounter. Patient reports that signs and symptoms have been present for 1 day and indicates a pain score of 2/10. MEDICAL/SURGICAL HISTORY: . Coronary Artery Disease . . Cholecystectomy COMPARISON: [facility] [place], CHEST 1V SINGLE AP, 04/14/2018. . FINDINGS: No significant new focal pleural or parenchymal abnormality. The cardiomediastinal contours are unrem arkable. Osseous structures are intact. CONCLUSION: 1. No acute cardiopulmonary disease. Electronically signed by: Indio Ricardo MD Board Certified Radiologist 05/16/2018 9:37 PM ES T
[2018-05-16 22:00] LABS: Baso # (Auto) 0.1 th/mm3 (0.0-0.2); Baso % (Auto) 1.1 % (0.0-2.0); Eos % (Auto) 0.2 % (0.0-4.0); Hematocrit 29.4 % (35.0-46.0); Hemoglobin 9.6 gm/dL (11.6-15.3); Lymph # (Auto) 1.2 th/mm3 (1.0-4.8); Lymph % (Auto) 15.8 % (9.0-44.0); Mean Corpuscular HGB Conc 32.6 % (32.0-36.0); Mean Corpuscular Hemoglobin 29.9 pg (27.0-34.0); Mean Corpuscular Volume 91.6 fL (80.0-100.0); Mean Platelet Volume 7.6 fL (7.0-11.0); Mono # (Auto) 0.6 th/mm3 (0.0-0.9); Mono % (Auto) 7.9 % (0.0-8.0); Neut # (Auto) 5.8 th/mm3 (1.8-7.7); Platelet Count 304 th/mm3 (150-450); Red Blood Count 3.21 mil/mm3 (4.00-5.30); White Blood Count 7.7 th/mm3 (4.0-11.0)
[2018-05-16 22:17] LABS: Activated Partial Thrombo Time 22.2 sec (23.4-31.7); INR 1.2 Ratio; Prothrombin Time 12.1 sec (9.8-11.6)
[2018-05-16 22:22] LABS: Albumin 3.6 g/dL (3.4-5.0); Anion Gap 13 meq/L (5-15); Aspartate Aminotransferase 30 U/L (15-37); Blood Urea Nitrogen 16 mg/dL (7-18); Calcium 8.9 mg/dL (8.5-10.1); Carbon Dioxide 22.5 meq/L (21.0-32.0); Chloride 109 meq/L (98-107); Glomerular Filtration Rate 51 mL/min (>89); Glucose,Random 96 mg/dL (74-106); Magnesium 1.7 mg/dL (1.5-2.5); Potassium 3.5 meq/L (3.5-5.1); Sodium 144 meq/L (136-145)
[2018-05-16 22:23] LABS: Alanine Aminotransferase 17 U/L (10-53)
[2018-05-16 22:27] LABS: Alkaline Phosphatase 82 U/L (45-117); Creatine Kinase 360 U/L (26-192); Total Protein 7.6 g/dL (6.4-8.2)
[2018-05-16 22:39] LABS: CKMB Percent 1.3 % (0.0-4.0); Creatine Kinase MB 4.7 ng/mL (0.5-3.6)
--- NOTE | 2018-05-16 23:39 | CT ---
EXAM DATE: 05/16/2018 11:29 PM EST AGE/SEX: 72 years / Female INDICATIONS: Altered mental status. CLINICAL DATA: This is the patient's initial encounter. Patient reports that signs and symptoms have been present for 1 day and indicates a pain score of Nonresponsive. MEDICAL/SURGICAL HISTORY: Hypertension. CAD. None. RADIATION DOSE: 56.35 CTDI (mGy) ; Patient motion COMPARISON: No prior exams available for comparison. TECHNIQUE: CT of the head without contrast. Using automated exposure control and adjustment of the mA and/or kV according to patient size, radiation dose was kept as low as reasonably achievable to ob tain optimal diagnostic quality images. DICOM format image data is available electronically for revi ew and comparison. FINDINGS: Motion degraded study. Cerebrum: The ventricles are normal for age. No evidence of midline shift, mass lesion, hemorrhage or acute infarction. No extraaxial fluid collections are seen. Atrophy and chronic low-attenuation i n the periventricular white matter noted. Posterior Fossa: The cerebellum and brainstem are intact. The 4th ventricle is midline. The cerebe llopontine angle is unremarkable. Extracranial: The visualized portion of the orbits is intact. Skull: The calvaria is intact. No evidence of skull fracture. CONCLUSION: 1. No acute cardiopulmonary disease demonstrated. 2. Atrophy and chronic white matter changes. . Electronically signed by: Shadi Atkins MD Board Certified Radiologist 05/16/2018 11:38 PM EST
[2018-05-17 00:04] LABS: Amorphous Sediment,Urine Rare /hpf; Bilirubin,Urine Negative (Negative); Clarity,Urine Hazy (Clear); Color,Urine Amber (Yellw/Straw); Glucose,Urine (UA) Negative (Negative); Hyaline Casts,Urine 24 /lpf (0-3); Leukocyte Esterase,Urine Negative (Negative); Mucus,Urine Moderate /lpf (Occasional); Nitrite,Urine Negative (Negative); Specific Gravity,Urine 1.026 (1.002-1.035); Squamous Epithelial Cell,Urine <1 /hpf (0-5)
--- NOTE | 2018-05-17 00:38 | P.HPFP ---
History of Present Illness Primary Care Physician: UNKNOWN <Tk Marion Isatu 05/17/18 11:05> UNKNOWN <Himanshu Ayoub 05/17/18 00:38> History of Present Illness: This patient is a 72-year-old female with history of hypertension who presents to the ED after 1 day history of generalized weakness. History was limited as patient was tired and difficult to engage. Patient reports that approximately 3-4 days ago she began to experience loose, nonbloody, and non-malodorous stools approximately 3-4 times a day. During this time she experienced no nausea, vomiting, chest pain, shortness of breath, urinary symptoms, fevers, or chills. This continued until this morning when she was not able to get out of her chair. She reports pain in knees bilaterally as well as pain in her legs bilaterally. She denies any recent falls, recent illnesses, or sick contacts. Per ED note: Daughter came to check on mother today and found her unable to get up and walk. ED doctor spoke with daughter who reported that patient was confused yesterday and tried to go to the bathroom on the living room floor. Afterwards , patient became irritable after attempted redirection. Further history could not be garnered. PMHx: HTN, Tremors Surgical HX: None Meds: Diltiazem, potassium chloride, risperidone, trihexyphenidyl Allergies: Iodine creates hives FMHx: None Social: Lives with daughter in [facility] in an [address]. Retired nursing student. Never smoker. Does not consume alcohol. Denies drug use. Code: Full code. <Himanshu Ayoub 05/17/18 02:37> - Diagnosis (1) Weakness (2) DVT (deep venous thrombosis) (3) Elevated d-dimer (4) Normocytic anemia (5) Elevated creatine kinase (6) MARCEL (acute kidney injury) (7) Loose stools (8) Tremor (9) Hypertension <Tk Marion 05/17/18 11:05> (1) Weakness (2) Elevated d-dimer (3) Normocytic anemia (4) Elevated CK-MB level (5) Elevated creatine kinase (6) MARCEL (acute kidney injury) (7) Loose stools (8) Tremor (9) Hypertension <Himanshu Ayoub 05/17/18 02:21> Inpatient Certification: I certify that the inpatient services were ordered in accordance with Medicare regulations governing the order. This includes certification that hospital inpatient services are reasonable and necessary and in the case of services not specified as inpatient-only under 42 CFR 419.22(n), that they are appropriately provided as inpatient services in accordance to with the 2-midnight benchmark under 43 CFR 412.3(e) <Tk Marion 05/17/18 11:05> Review of Systems Constitutional: Denies chills, Denies fever(s), Denies headache(s), Denies dizziness, Eyes: Denies change in vision, Denies double vision, Denies blurry vision Cardiovascular: Denies chest pain, Denies fast heart rate, Denies rapid, pounding, or irregular heartbeat Respiratory: Denies shortness of breath or wheezing Gastrointestinal: Reports 3-day history of loose stools, denies nausea, Denies vomiting Genitourinary: Denies difficulty urinating, Denies painful urination, Denies urinary frequency, Denies blood in urine <Himanshu Ayoub 05/17/18 01:48> PMFSH - History History Provided By: Patient <Himanshu Ayoub 05/17/18 00:38> - Medical History Medical History: Medical History (Last Reviewed 05/16/18 @ 21:26 by Robyn Bernard MD) Arthritis Coronary artery disease Depression HTN (hypertension) Tremor <Tk Marion 05/17/18 11:05> Medical History (Last Reviewed 05/16/18 @ 21:26 by Robyn Bernard MD) Arthritis Coronary artery disease Depression HTN (hypertension) Tremor <Himanshu Ayoub 05/17/18 00:38> - Family History Family History: Family History (Last Reviewed 05/16/18 @ 21:26 by Robyn Bernard MD) Other Breast cancer <Tk Marion 05/17/18 11:05> Family History (Last Reviewed 05/16/18 @ 21:26 by Robyn Bernard MD) Other Breast cancer <Miller Himanshu Helms Isatu 05/17/18 00:38> - Tobacco History Second Hand Smoke Exposure: No <Himanshu Ayoub 05/17/18 00:38> Smoking Status: Never smoker <Himanshu Ayoub 05/17/18 00:38> Tobacco Type: Cigarettes <Himanshu Ayoub 05/17/18 00:38> - Alcohol History How Often Do You Have a Drink Containing Alcohol: Never <Himanshu Ayoub Isatu 00:38> - Substance Use History Substance History: No History of Abuse <Himanshu Ayoub Isatu 05/17/18 00:38> - Travel History Recent Travel in the [facility] Within the Last 8 Weeks: No <Himanshu Ayoub 05/17 00:38> Recent Travel Out of the Country Within the Last 8 Weeks: No <Himanshu Ayoub Isatu 05/17/18 00:38> - Immunization History Tetanus Immunization: >5 Years <Himanshu Ayoub Richard 05/17/18 00:38> Medications and Allergies Allergies Allergy/AdvReac Type Severity Reaction Status Date / Time iodine Allergy Mild Swelling Verified 05/16/18 21:21 potassium iodide Allergy Mild Swelling Verified 05/16/18 21:21 povidone-iodine Allergy Mild Swelling Verified 05/16/18 21:21 sodium iodide Allergy Mild Swelling Verified 05/16/18 21:21 sodium iodide Allergy Mild Swelling Verified 05/16/18 21:21 <Tk Marion - 05/17/18 11:05> Home Medications Medication Instructions Recorded Confirmed Type potassium chloride 10 meq PO DAILY 04/03/18 05/16/18 History risperidone 0.5 mg PO HS 04/03/18 05/16/18 History trihexyphenidyl 2 mg PO TID 04/03/18 05/16/18 History diltiazem HCl 240 mg PO DAILY 04/16/18 05/16/18 History <Tk Marion - 05/17/18 11:05> Active Medications: Active Medications Acetaminophen (Tylenol) 650 mg PO Q4H PRN PRN Reason: Temp > 100.4 Acetaminophen (Tylenol) 650 mg PO Q6HR PRN PRN Reason: PAIN SCALE 1 TO 2 Hydrocodone Bitart/Acetaminophen ([place] 5/325) 1 tab PO Q4H PRN PRN Reason: PAIN SCALE 3 TO 5 Hydrocodone Bitart/Acetaminophen ([place] 7.5/325) 1 tab PO Q4H PRN PRN Reason: PAIN SCALE 6 TO 10 Al Hydroxide/Mg Hydroxide (Milk Of Magnesia Liq) 30 ml PO Q12H PRN PRN Reason: Mild Constipation Bisacodyl (Dulcolax Supp) 10 mg RECTAL DAILY PRN PRN Reason: SEVERE CONSITIPATION Diltiazem HCl (Cardizem Cd 24hr) 240 mg PO DAILY [facility] Last Admin: 05/17/18 08:30 Dose: 240 mg Enoxaparin Sodium (Lovenox Inj) 110 mg SQ Q12HR [facility] Last Admin: 05/17/18 08:30 Dose: 110 mg Sodium Chloride (Ns Inj) 1,000 mls @ 125 mls/hr IV.CONT .Q8H [facility] Last Admin: 05/17/18 05:38 Dose: 125 mls/hr Lactulose (Lactulose Liq) 30 ml PO DAILY PRN PRN Reason: SEVERE CONSITIPATION Morphine Sulfate (Morphine Inj) 2 mg IV.PUSH Q3H PRN PRN Reason: BREAKTHROUGH PAIN Naloxone HCl (Narcan Inj) 0.4 mg IV.PUSH UNSCH PRN PRN Reason: SEE LABEL COMMENTS Ondansetron HCl (Zofran Inj) 4 mg IV.PUSH Q6H PRN PRN Reason: NAUSEA OR VOMITING Pantoprazole Sodium (Protonix) 40 mg PO DAILY [facility] Potassium Chloride (Kcl) 10 meq PO DAILY [facility] Last Admin: 05/17/18 08:30 Dose: 10 meq Sennosides (Senokot) 17.2 mg PO Q12H PRN PRN Reason: Moderate Constipation Sodium Chloride (Ns Inj) 2 ml IV.FLUSH BID [facility] Last Admin: 05/17/18 08:30 Dose: 2 ml Sodium Chloride (Ns Inj) 2 ml IV.FLUSH UNSCH PRN PRN Reason: FLUSH AFTER USING IV ACCESS <Tk Marion - 05/17/18 11:05> Active Medications Sodium Chloride (Ns Flush) 2 ml IV.FLUSH UNSCH PRN PRN Reason: FLUSH AFTER USING IV ACCESS Last Admin: 05/16/18 21:57 Dose: 2 ml <Himanshu Ayoub - 05/17/18 00:38> Exam Vital signs: Vital Signs 05/16/18 21:14 05/16/18 21:18 05/17/18 02:28 Temperature 99.6 F 98.6 F Pulse Rate 106 H 90 92 H Respiratory Rate 17 20 18 Blood Pressure 135/74 129/68 141/75 H Pulse Oximetry 97 99 05/17/18 04:00 05/17/18 07:50 05/17/18 08:00 Temperature 97.9 F 97.9 F Pulse Rate 86 83 Respiratory Rate 18 14 14 Blood Pressure 144/81 H 141/67 H Pulse Oximetry 96 99 05/17/18 09:29 Temperature Pulse Rate Respiratory Rate Blood Pressure Pulse Oximetry 99 Intake & Output 05/16/18 05/17/18 05/17/18 18:59 06:59 18:59 Intake Total 250 / 250 Balance 250 / 250 Weight 106.3 kg Intake: IV 250 / 250 NS Inj 250 ML @ Wide Open IV. 250 / 250 SIG BOLUS ONE Rx#:[id number] Other: # Voids 0 Date of Last Bowel Movement 05/15/18 Weight On Admission 86.183 kg <Tk Marion - 05/17/18 11:05> Vital Signs 05/16/18 21:14 05/16/18 21:18 Temperature 99.6 F Pulse Rate 106 H 90 Respiratory Rate 17 20 Blood Pressure 135/74 129/68 Pulse Oximetry 97 Intake & Output 05/16/18 05/16/18 05/17/18 06:59 18:59 06:59 Intake Total 250 / 250 Balance 250 / 250 Weight 86.183 kg Intake: IV 250 / 250 NS Inj 250 ML @ Wide Open IV. 250 / 250 SIG BOLUS ONE Rx#:[id number] <Angela HelmsHimanshu Ramos - 05/17/18 00:38> Narrative: GENERAL: Elderly 72-year-old female lying in bed and asking for pain pills SKIN: Warm and dry. No rash. EYES: No scleral icterus. No injection or drainage. PERRLA. EOMI. HENT: Normocephalic. Atraumatic. MMM. OP Benign. NECK: Supple, trachea midline. No JVD or lymphadenopathy. CARDIOVASCULAR: Regular rate and rhythm without obvious murmurs, gallops, or rubs. RESPIRATORY: Breath sounds equal bilaterally. No accessory muscle use. CTAB. GASTROINTESTINAL: Abdomen soft, tender to deep palpation over epigastric region , nondistended. BS WNL. MUSCULOSKELETAL: No cyanosis. 2+ pitting edema up to knees bilaterally. Strength grossly WNL. BACK: Nontender without obvious deformity. No CVA tenderness. NEURO/PSYCH: Sleepy but arousable. Alert and oriented x2. Cranial nerves II through XII grossly intact. Short-term memory intact. Long-term memory difficult to assess as patient was tired and did not want to cooperate. Significant weakness in both upper and lower extremities that were equal bilaterally. Draw Bench Operator strength weak but equal bilaterally. Patient unable to raise legs off of bed. No unilateral weakness. No facial drooping. No pronator drift. Cerebellar exams could not be accomplished this patient was too weak. <Himanshu Ayoub - 05/17/18 02:20> Results - Labs Result diagrams: 05/17/18 07:23 05/17/18 03:55 <Tk Marion - 05/17/18 11:05> Abnormal lab results 05/16/18 05/16/18 05/16/18 Range/Units 21:50 21:50 21:50 RBC 3.21 L (4.00-5.30) mil/mm3 Hgb 9.6 L (11.6-15.3) gm/dL Hct 29.4 L (35.0-46.0) % MCHC (32.0-36.0) % Neut % (Auto) 75.0 H (16.0-70.0) % [place] % (Auto) (0.0-8.0) % PT 12.1 H (9.8-11.6) sec APTT 22.2 L (23.4-31.7) sec D-Dimer Quant (PE/DVT) 3.84 H (0.00-0.50) mg/L FEU Chloride (98-107) meq/L Creatinine (0.50-1.00) mg/dL Estimated GFR (>89) mL/min Total Creatine Kinase (26-192) U/L CK-MB (CK-2) (0.5-3.6) ng/mL Troponin I (0.02-0.05) ng/mL Urine Clarity (Clear) Urine Protein (Neg-Trace) mg/dL Urine Urobilinogen (Less than 2) mg/dL Urine RBC (0-3) /hpf Amorphous Sediment (None) /hpf Urine Mucus (Occasional) /lpf 1205/16/18 05/17/18 Range/Units 21:50 23:16 03:55 RBC (4.00-5.30) mil/mm3 Hgb (11.6-15.3) gm/dL Hct (35.0-46.0) % MCHC (32.0-36.0) % Neut % (Auto) (16.0-70.0) % [place] % (Auto) (0.0-8.0) % PT (9.8-11.6) sec APTT (23.4-31.7) sec D-Dimer Quant (PE/DVT) (0.00-0.50) mg/L FEU Chloride 109 H (98-107) meq/L Creatinine 1.24 H (0.50-1.00) mg/dL Estimated GFR 51 L (>89) mL/min Total Creatine Kinase 360 H 292 H (26-192) U/L CK-MB (CK-2) 4.7 H (0.5-3.6) ng/mL Troponin I Less than 0.02 L Less than 0.02 L (0.02-0.05) ng/mL Urine Clarity Hazy H (Clear) Urine Protein 30 H (Neg-Trace) mg/dL Urine Urobilinogen 2.0 H (Less than 2) mg/dL Urine RBC 5 H (0-3) /hpf Amorphous Sediment Rare H (None) /hpf Urine Mucus Moderate H (Occasional) /lpf 05/17/18 05/17/18 05/17/18 Range/Units 03:55 07:23 09:50 RBC 3.04 L (4.00-5.30) mil/mm3 Hgb 9.0 L (11.6-15.3) gm/dL Hct 28.6 L (35.0-46.0) % MCHC 31.6 L (32.0-36.0) % Neut % (Auto) (16.0-70.0) % [place] % (Auto) 9.9 H (0.0-8.0) % PT (9.8-11.6) sec APTT (23.4-31.7) sec D-Dimer Quant (PE/DVT) (0.00-0.50) mg/L FEU Chloride 111 H (98-107) meq/L Creatinine (0.50-1.00) mg/dL Estimated GFR 70 L (>89) mL/min Total Creatine Kinase 250 H (26-192) U/L CK-MB (CK-2) (0.5-3.6) ng/mL Troponin I Less than 0.02 L (0.02-0.05) ng/mL Urine Clarity (Clear) Urine Protein (Neg-Trace) mg/dL Urine Urobilinogen (Less than 2) mg/dL Urine RBC (0-3) /hpf Amorphous Sediment (None) /hpf Urine Mucus (Occasional) /lpf Short CBC 05/16/18 05/17/18 Range/Units 21:50 07:23 WBC 7.7 7.8 (4.0-11.0) th/mm3 Hgb 9.6 L 9.0 L (11.6-15.3) gm/dL Hct 29.4 L 28.6 L (35.0-46.0) % Plt Count 304 D 275 (150-450) th/mm3 BMP 05/16/18 05/17/18 21:50 03:55 Sodium 144 145 Potassium 3.5 3.7 Chloride 109 H 111 H Carbon Dioxide 22.5 23.5 BUN 16 13 Creatinine 1.24 H 0.95 Calcium 8.9 8.8 Cardiac Enzymes 05/16/18 05/17/18 05/17/18 Range/Units 21:50 03:55 09:50 Total Creatine Kinase 360 H 292 H 250 H (26-192) U/L CK-MB (CK-2) 4.7 H 3.3 (0.5-3.6) ng/mL Troponin I Less than 0.02 L Less than 0.02 L Less than 0.02 L (0.02-0.05) ng/mL Liver Function 05/16/18 Range/Units 21:50 Total Bilirubin 0.5 (0.2-1.0) mg/dL AST 30 (15-37) U/L ALT 17 (10-53) U/L Alkaline Phosphatase 82 (45-117) U/L Albumin 3.6 (3.4-5.0) g/dL Urine 05/16/18 Range/Units 23:16 Urine Color Kera (Yellw/Straw) Urine Clarity Hazy H (Clear) Urine pH 5.0 (5.0-8.5) Ur Specific [place] 1.026 (1.002-1.035) Urine Protein 30 H (Neg-Trace) mg/dL Urine Glucose (UA) Negative (Negative) mg/dL <Tk Marion - 05/17/18 11:05> Abnormal lab results 05/16/18 05/16/18 05/16/18 Range/Units 21:50 21:50 21:50 RBC 3.21 L (4.00-5.30) mil/mm3 Hgb 9.6 L (11.6-15.3) gm/dL Hct 29.4 L (35.0-46.0) % Neut % (Auto) 75.0 H (16.0-70.0) % PT 12.1 H (9.8-11.6) sec APTT 22.2 L (23.4-31.7) sec Chloride 109 H (98-107) meq/L Creatinine 1.24 H (0.50-1.00) mg/dL Estimated GFR 51 L (>89) mL/min Total Creatine Kinase 360 H (26-192) U/L CK-MB (CK-2) 4.7 H (0.5-3.6) ng/mL Troponin I Less than 0.02 L (0.02-0.05) ng/mL Urine Clarity (Clear) Urine Protein (Neg-Trace) mg/dL Urine Urobilinogen (Less than 2) mg/dL Urine RBC (0-3) /hpf Amorphous Sediment (None) /hpf Urine Mucus (Occasional) /lpf 05/16/18 Range/Units 23:16 RBC (4.00-5.30) mil/mm3 Hgb (11.6-15.3) gm/dL Hct (35.0-46.0) % Neut % (Auto) (16.0-70.0) % PT (9.8-11.6) sec APTT (23.4-31.7) sec Chloride (98-107) meq/L Creatinine (0.50-1.00) mg/dL Estimated GFR (>89) mL/min Total Creatine Kinase (26-192) U/L CK-MB (CK-2) (0.5-3.6) ng/mL Troponin I (0.02-0.05) ng/mL Urine Clarity Hazy H (Clear) Urine Protein 30 H (Neg-Trace) mg/dL Urine Urobilinogen 2.0 H (Less than 2) mg/dL Urine RBC 5 H (0-3) /hpf Amorphous Sediment Rare H (None) /hpf Urine Mucus Moderate H (Occasional) /lpf Short CBC 05/16/18 Range/Units 21:50 WBC 7.7 (4.0-11.0) th/mm3 Hgb 9.6 L (11.6-15.3) gm/dL Hct 29.4 L (35.0-46.0) % Plt Count 304 D (150-450) th/mm3 BMP 05/16/18 21:50 Sodium 144 Potassium 3.5 Chloride 109 H Carbon Dioxide 22.5 BUN 16 Creatinine 1.24 H Calcium 8.9 Cardiac Enzymes 05/16/18 Range/Units 21:50 Total Creatine Kinase 360 H (26-192) U/L CK-MB (CK-2) 4.7 H (0.5-3.6) ng/mL Troponin I Less than 0.02 L (0.02-0.05) ng/mL Liver Function 05/16/18 Range/Units 21:50 Total Bilirubin 0.5 (0.2-1.0) mg/dL AST 30 (15-37) U/L ALT 17 (10-53) U/L Alkaline Phosphatase 82 (45-117) U/L Albumin 3.6 (3.4-5.0) g/dL Urine 05/16/18 Range/Units 23:16 Urine Color Kera (Yellw/Straw) Urine Clarity Hazy H (Clear) Urine pH 5.0 (5.0-8.5) Ur Specific [place] 1.026 (1.002-1.035) Urine Protein 30 H (Neg-Trace) mg/dL Urine Glucose (UA) Negative (Negative) mg/dL <Himanshu Ayoub - 05/17/18 00:38> - Imaging Impressions Chest X-Ray 05/16/18 21:21 CONCLUSION: 1. No acute cardiopulmonary disease. Head CT 05/16/18 21:23 CONCLUSION: 1. No acute cardiopulmonary disease demonstrated. 2. Atrophy and chronic white matter changes. . Venous Doppler Study 05/17/18 02:02 CONCLUSION: 1. DVT of the left lower extremity. 2. Superficial venous thrombosis of the right lower extremity involving the greater saphenous vein. CT pulmonary angiogram has been ordered. There is some question as to whether the patient has history of previous reaction to iodinated contrast and please investigate further. VQ scan versus CT pulmonary angiogram post premedication suggested as felt clinically indicated/applicable. <Tk Marion 05/17/18 11:05> Impressions Chest X-Ray 05/16/18 21:21 CONCLUSION: 1. No acute cardiopulmonary disease. Head CT 05/16/18 21:23 CONCLUSION: 1. No acute cardiopulmonary disease demonstrated. 2. Atrophy and chronic white matter changes. . <Himanshu Ayoub 05/17/18 00:38> Caprini VTE Risk Assessment Caprini VTE Risk Assessment: Moderate/High Risk (score >= 2) <Himanshu Ayoub 05/17/18 02:37> Caprini Risk Assessment Model: Point Value = 1 Point Value = 2 Point Value = 3 Point Value = 5 Age 41-60 Minor surgery BMI > 25 kg/m2 Swollen legs Varicose veins or History of unexplained or recurrent spontaneous Oral contraceptives or hormone replacement Sepsis (< 1 month) Serious lung disease, including pneumonia (< 1 month) Abnormal pulmonary function Acute myocardial infarction Congestive heart failure (< 1 month) History of inflammatory bowel disease Medical patient at bed rest Age 61-74 Arthroscopic surgery Major open surgery (> 45 min) Laparoscopic surgery (> 45 min) Malignancy Confined to bed (> 72 hours) Immobilizing plaster cast Central venous access Age >= 75 History of VTE Family history of VTE Factor V Leiden Prothrombin [id number] Lupus anticoagulant Anticardiolipin antibodies Elevated serum homocysteine Heparin-induced thrombocytopenia Other congenital or acquired thrombophilia Stroke (< 1 month) Elective arthroplasty Hip, pelvis, or leg fracture Acute spinal cord injury (< 1 month) <Tk Marion 05/17/18 11:05> Point Value = 1 Point Value = 2 Point Value = 3 Point Value = 5 Age 41-60 Minor surgery BMI > 25 kg/m2 Swollen legs Varicose veins or History of unexplained or recurrent spontaneous Oral contraceptives or hormone replacement Sepsis (< 1 month) Serious lung disease, including pneumonia (< 1 month) Abnormal pulmonary function Acute myocardial infarction Congestive heart failure (< 1 month) History of inflammatory bowel disease Medical patient at bed rest Age 61-74 Arthroscopic surgery Major open surgery (> 45 min) Laparoscopic surgery (> 45 min) Malignancy Confined to bed (> 72 hours) Immobilizing plaster cast Central venous access Age >= 75 History of VTE Family history of VTE Factor V Leiden Prothrombin [id number] Lupus anticoagulant Anticardiolipin antibodies Elevated serum homocysteine Heparin-induced thrombocytopenia Other congenital or acquired thrombophilia Stroke (< 1 month) Elective arthroplasty Hip, pelvis, or leg fracture Acute spinal cord injury (< 1 month) <Himanshu Ayoub - 05/17/18 00:38> Prophylaxis Regimen: Total Risk Factor Score Risk Level Prophylaxis Regimen 0-1 Low Early ambulation 2 Moderate Order ONE of the following: *Sequential Compression Device (SCD) *Heparin 5000 units SQ BID 3-4 Higher Order ONE of the following medications: *Heparin 5000 units SQ TID *Enoxaparin/Lovenox 40 mg SQ daily (WT < 150 kg, CrCl > 30 mL/min) *Enoxaparin/Lovenox 30 mg SQ daily (WT < 150 kg, CrCl > 10-29 mL/min) *Enoxaparin/Lovenox 30 mg SQ BID (WT < 150 kg, CrCl > 30 mL/min) AND/OR *Sequential Compression Device (SCD) 5 or more Highest Order ONE of the following medications: *Heparin 5000 units SQ TID (Preferred with Epidurals) *Enoxaparin/Lovenox 40 mg SQ daily (WT < 150 kg, CrCl > 30 mL/min) *Enoxaparin/Lovenox 30 mg SQ daily (WT < 150 kg, CrCl > 10-29 mL/min) *Enoxaparin/Lovenox 30 mg SQ BID (WT < 150 kg, CrCl > 30 mL/min) AND *Sequential Compression Device (SCD) <Tk Marion - 05/17/18 11:05> Total Risk Factor Score Risk Level Prophylaxis Regimen 0-1 Low Early ambulation 2 Moderate Order ONE of the following: *Sequential Compression Device (SCD) *Heparin 5000 units SQ BID 3-4 Higher Order ONE of the following medications: *Heparin 5000 units SQ TID *Enoxaparin/Lovenox 40 mg SQ daily (WT < 150 kg, CrCl > 30 mL/min) *Enoxaparin/Lovenox 30 mg SQ daily (WT < 150 kg, CrCl > 10-29 mL/min) *Enoxaparin/Lovenox 30 mg SQ BID (WT < 150 kg, CrCl > 30 mL/min) AND/OR *Sequential Compression Device (SCD) 5 or more Highest Order ONE of the following medications: *Heparin 5000 units SQ TID (Preferred with Epidurals) *Enoxaparin/Lovenox 40 mg SQ daily (WT < 150 kg, CrCl > 30 mL/min) *Enoxaparin/Lovenox 30 mg SQ daily (WT < 150 kg, CrCl > 10-29 mL/min) *Enoxaparin/Lovenox 30 mg SQ BID (WT < 150 kg, CrCl > 30 mL/min) AND *Sequential Compression Device (SCD) <Himanshu Ayoub - 05/17/18 00:38> Assessment and Plan - Assessment (1) Weakness Code(s): R53.1 - Weakness Status: Acute (2) DVT (deep venous thrombosis) Code(s): I82.409 - Acute embolism and thrombosis of unspecified deep veins of unspecified lower extremity Status: Acute (3) Elevated d-dimer Code(s): R79.89 - Other specified abnormal findings of blood chemistry Status : Acute (4) Normocytic anemia Code(s): D64.9 - Anemia, unspecified Status: Acute (5) Elevated creatine kinase Code(s): R74.8 - Abnormal levels of other serum enzymes Status: Acute (6) MARCEL (acute kidney injury) Code(s): N17.9 - Acute kidney failure, unspecified Status: Acute (7) Loose stools Code(s): R19.5 - Other fecal abnormalities Status: Acute (8) Tremor Code(s): R25.1 - Tremor, unspecified Status: Acute (9) Hypertension Code(s): I10 - Essential (primary) hypertension Status: Acute <Tk Marion - 05/17/18 11:05> (1) Weakness Code(s): R53.1 - Weakness Status: Acute Plan: Patient has a 1 day history of significant weakness. Per EMR review patient previously admitted on 04/14/18 for similar symptoms and diagnosed with acute viral syndrome/strep throat with sepsis and discharged to SNF. Per EMR review patient also had GI bleed in mid March 2018. Causes for pain/weakness include ACS versus chronic anemia versus metabolic disturbance versus infection. ACS rule out: -CK-MB elevated 4.7, continue to trend -Creatinine kinase elevated 360, continue to trend -Troponins less than 0.02, continue to trend -BNP 13 -Sinus tachycardia at 104 -Monitor on telemetry Infection: -WBC 7.7 -Afebrile -Normotensive -UA negative -Chest x-ray showed no acute cardiopulmonary process Anemia: -H/H 9.6/29.4 at baseline for patient -Normocytic -Follow-up with [facility] due to previous GI bleed Metabolic: -BMP within normal limits with MARCEL -Hold risperidone and trihexyphenidyl as adverse reactions are weakness (2) Elevated d-dimer Code(s): R79.89 - Other specified abnormal findings of blood chemistry Status : Acute Plan: Patient reports immobility, bilateral lower leg pain, and new lower leg edema. D-dimer elevated at 3.84 above upper limit of normal 0.5. DVT/PE rule out: -Wells Score of 3 indicating moderate risk -PERC Rule: PE cannot be ruled out -Tachycardic on presentation -Immobile due to weakness -Bilateral lower leg pain and swelling -Satting 97% on RA -D-dimer 3.84 -Bilateral venous Doppler studies -CTA of the chest (3) Normocytic anemia Code(s): D64.9 - Anemia, unspecified Status: Acute Plan: Please see plan under weakness (4) Elevated CK-MB level Code(s): R74.8 - Abnormal levels of other serum enzymes Status: Acute Plan: ACS rule out. Please see plan under weakness. (5) Elevated creatine kinase Code(s): R74.8 - Abnormal levels of other serum enzymes Status: Acute Plan: Continue to trend creatinine kinase. Please see ACS rule out under weakness. (6) MARCEL (acute kidney injury) Code(s): N17.9 - Acute kidney failure, unspecified Status: Acute Plan: Patient presents with a creatinine of 1.24. Creatinine 1 month ago was 0.71. Patient normotensive. BUN to creatinine ratio less than 10 indicating possible intrarenal causes. -Continue to trend serum creatinine. -Maintenance fluids at NS 125 mL an hour (7) Loose stools Code(s): R19.5 - Other fecal abnormalities Status: Acute Plan: Patient reports a 3-4-day history of loose nonbloody non-malodorous stools. -Electrolytes WNL -Hold laxatives/stool softeners -Monitor I's and O's -Hydrate IV normal saline at 125 mL an hour (8) Tremor Code(s): R25.1 - Tremor, unspecified Status: Acute Plan: Patient reports history of tremors. On risperidone and trihexyphenidyl at home. -Hold as these medications can cause weakness (9) Hypertension Code(s): I10 - Essential (primary) hypertension Status: Acute Plan: Currently normotensive -Continue home diltiazem Fluids: Normal saline at 125 mils an hour Electrolytes: Replete as needed Nutrition: Regular diet DVT prophylaxis: Enoxaparin 40 subcu daily, patient currently being evaluated for possible but unlikely bleed as well as possible PE/DVT. Anemia stable we will continue with prophylaxis until DVT ruled out. <Himanshu Ayoub - 05/17/18 02:21> - Attending Attestation Patient case discussed with resident physicians I have independently examined the patient I have read the above note and agree with the assessment and plan as discussed with me I was involved in all medical decision making for this patient Tk Marion MD <Tk Marion - 05/17/18 11:05> <Tk Marion - Last Filed: 05/17/18 11:05> (2) DVT (deep venous thrombosis) Qualifiers: DVT location: lower extremity Affected thrombotic vein of extremity: popliteal Chronicity: acute Laterality: left Qualified Code(s): I82.432 - Acute embolism and thrombosis of left popliteal vein <Tk Marion - Last Filed: 05/17/18 11:05> (2) DVT (deep venous thrombosis) Qualifiers: DVT location: lower extremity Affected thrombotic vein of extremity: popliteal Chronicity: acute Laterality: left Qualified Code(s): I82.432 - Acute embolism and thrombosis of left popliteal vein
[2018-05-17] MEDS ORDERED: Acetaminophen 325 MG Tablet PO PRN ×2 (00:52→01:11)
[2018-05-17] MEDS ORDERED: Bisacodyl 10 MG Supp RECTAL PRN (00:52)
[2018-05-17] MEDS ORDERED: Morphine Inj 4 MG/ML Vial IV.PUSH PRN (01:11)
[2018-05-17] MEDS ORDERED: Naloxone Inj 0.4 MG/ML Vial IV.PUSH PRN (01:11)
[2018-05-17] MEDS ORDERED: Morphine Sulfate Inj 2 MG/ML Vial IV.PUSH ONE (01:14)
--- NOTE | 2018-05-17 04:10 | US ---
EXAM DATE: 05/17/2018 3:58 AM EST AGE/SEX: 72 years / Female INDICATIONS: Bilateral lower extremity edema. CLINICAL DATA: This is the patient's initial encounter. Patient reports that signs and symptoms have been present for 1 day and indicates a pain score of 0/10. MEDICAL/SURGICAL HISTORY: . Hypertension. CAD. Cholecystectomy. COMPARISON: . TECHNIQUE: Venous ultrasound of both lower extremities was performed from the inguinal ligament to t he proximal calf. Real-time, color Doppler and spectral tracing, compression and augmentation techni ques were used. FINDINGS: Right Leg: There is venous thrombosis seen in the right greater saphenous vein. Deep venous tributar ies of the right lower extremity are patent. Left Leg: There is DVT in the left popliteal vein and extends below the knee the peroneal vein. Other: None. CONCLUSION: 1. DVT of the left lower extremity. 2. Superficial venous thrombosis of the right lower extremity involving the greater saphenous vein. CT pulmonary angiogram has been ordered. There is some question as to whether the patient has history of previous reaction to iodinated contrast and please investigate further. VQ scan versus CT pulmona ry angiogram post premedication suggested as felt clinically indicated/applicable. Electronically signed by: Shadi Atkins MD Board Certified Radiologist 05/17/2018 4:09 AM EST
[2018-05-17 04:47] LABS: Creatine Kinase 292 U/L (26-192)
[2018-05-17 04:59] LABS: CKMB Percent 1.1 % (0.0-4.0); Creatine Kinase MB 3.3 ng/mL (0.5-3.6)
[2018-05-17] MEDS: Sod Chloride 0.9% Inj 1,000 ML IV.CONT SCH ×3 (05:38→18:25)
[2018-05-17 06:25] LABS: Calcium 8.8 mg/dL (8.5-10.1); Carbon Dioxide 23.5 meq/L (21.0-32.0); Potassium 3.7 meq/L (3.5-5.1)
[2018-05-17 07:37] LABS: Baso # (Auto) 0.1 th/mm3 (0.0-0.2); Baso % (Auto) 1.3 % (0.0-2.0); Eos # (Auto) 0.1 th/mm3 (0.0-0.4); Eos % (Auto) 1.5 % (0.0-4.0); Hematocrit 28.6 % (35.0-46.0); Lymph # (Auto) 1.9 th/mm3 (1.0-4.8); Lymph % (Auto) 24.7 % (9.0-44.0); Mean Corpuscular HGB Conc 31.6 % (32.0-36.0); Mean Corpuscular Hemoglobin 29.8 pg (27.0-34.0); Mean Corpuscular Volume 94.2 fL (80.0-100.0); Mean Platelet Volume 7.2 fL (7.0-11.0); Mono # (Auto) 0.8 th/mm3 (0.0-0.9); Mono % (Auto) 9.9 % (0.0-8.0); Neut # (Auto) 4.9 th/mm3 (1.8-7.7); Neut % (Auto) 62.6 % (16.0-70.0); Platelet Count 275 th/mm3 (150-450); Red Blood Count 3.04 mil/mm3 (4.00-5.30); Red Cell Distribution Width 15.1 % (11.6-17.2); White Blood Count 7.8 th/mm3 (4.0-11.0)
[2018-05-17] MEDS: Enoxaparin Inj 120 MG/0.8 ML Syringe SQ SCH ×2 (08:30→20:07)
[2018-05-17] MEDS: Potassium Chloride 10 MEQ ER Capsule PO SCH (08:30)
[2018-05-17] MEDS: dilTIAZem CD 240 MG Capsule PO SCH (08:30)
[2018-05-17] MEDS ORDERED: Senna/Docusate Sodium 8.6/50 MG Tablet PO SCH (09:00)
[2018-05-17] MEDS ORDERED: Enoxaparin Inj 40 MG/0.4 ML Syringe SQ SCH (09:00)
[2018-05-17 10:57] LABS: Creatine Kinase 250 U/L (26-192)
--- NOTE | 2018-05-17 11:04 | P.PNFP ---
Subjective Interval history: Patient seen and examined during morning rounds with resident medical team. She states that she is feeling much better, going so far as the stating that she is back to her baseline. However upon further questioning, she continues to endorse weakness and inability to move around in bed or get out of bed. She also endorses improved leg pain from arrival. She was able to tolerate breakfast this morning without any issue. She denies any fevers or chills, denies any chest pain or shortness of breath, denies any nausea or vomiting, denies any headaches or vision changes. In summary this is a 72-year-old female presenting to the emergency department with generalized weakness at home. The patient's history endorses generalized weakness and difficulty getting around the house, however history from her daughter indicates that this is been an ongoing issue with progressive weakness and decreased activity around the house associated with recent loose stools over the last 3-4 days and a significant increase in confusion and disorientation. Her daughter was unable to get her out of her chair to walk and felt she needed to come to the emergency department for further evaluation. She was recently hospitalized from 04/14 through 04/18 for weakness associated with a viral syndrome and strep throat. She was admitted with a temperature of 102 and found to have a strep throat. She was treated with Augmentin times 7 days prior to discharged [place] [facility]. At that point, she was noted to be significantly weak and unable to stand on her own. PMHx: HTN, Tremors Surgical HX: None Meds: Diltiazem, potassium chloride, risperidone, trihexyphenidyl Allergies: Iodine creates hives FMHx: None Social: Lives with daughter in [facility] in an [address]. Retired nursing scheduler. Never smoker. Does not consume alcohol. Denies drug use. Code: Full code. Results - Labs Result diagrams: 05/17/18 07:23 05/17/18 03:55 Abnormal lab results 05/16/18 05/16/18 05/16/18 Range/Units 21:50 21:50 21:50 RBC 3.21 L (4.00-5.30) mil/mm3 Hgb 9.6 L (11.6-15.3) gm/dL Hct 29.4 L (35.0-46.0) % MCHC (32.0-36.0) % Neut % (Auto) 75.0 H (16.0-70.0) % [place] % (Auto) (0.0-8.0) % PT 12.1 H (9.8-11.6) sec APTT 22.2 L (23.4-31.7) sec D-Dimer Quant (PE/DVT) 3.84 H (0.00-0.50) mg/L FEU Chloride (98-107) meq/L Creatinine (0.50-1.00) mg/dL Estimated GFR (>89) mL/min Total Creatine Kinase (26-192) U/L CK-MB (CK-2) (0.5-3.6) ng/mL Troponin I (0.02-0.05) ng/mL Urine Clarity (Clear) Urine Protein (Neg-Trace) mg/dL Urine Urobilinogen (Less than 2) mg/dL Urine RBC (0-3) /hpf Amorphous Sediment (None) /hpf Urine Mucus (Occasional) /lpf 05/16/18 05/16/18 05/17/18 Range/Units 21:50 23:16 03:55 RBC (4.00-5.30) mil/mm3 Hgb (11.6-15.3) gm/dL Hct (35.0-46.0) % MCHC (32.0-36.0) % Neut % (Auto) (16.0-70.0) % [place] % (Auto) (0.0-8.0) % PT (9.8-11.6) sec APTT (23.4-31.7) sec D-Dimer Quant (PE/DVT) (0.00-0.50) mg/L FEU Chloride 109 H (98-107) meq/L Creatinine 1.24 H (0.50-1.00) mg/dL Estimated GFR 51 L (>89) mL/min Total Creatine Kinase 360 H 292 H (26-192) U/L CK-MB (CK-2) 4.7 H (0.5-3.6) ng/mL Troponin I Less than 0.02 L Less than 0.02 L (0.02-0.05) ng/mL Urine Clarity Hazy H (Clear) Urine Protein 30 H (Neg-Trace) mg/dL Urine Urobilinogen 2.0 H (Less than 2) mg/dL Urine RBC 5 H (0-3) /hpf Amorphous Sediment Rare H (None) /hpf Urine Mucus Moderate H (Occasional) /lpf 05/17/18 05/17/18 Range/Units 03:55 07:23 RBC 3.04 L (4.00-5.30) mil/mm3 Hgb 9.0 L (11.6-15.3) gm/dL Hct 28.6 L (35.0-46.0) % MCHC 31.6 L (32.0-36.0) % Neut % (Auto) (16.0-70.0) % [place] % (Auto) 9.9 H (0.0-8.0) % PT (9.8-11.6) sec APTT (23.4-31.7) sec D-Dimer Quant (PE/DVT) (0.00-0.50) mg/L FEU Chloride 111 H (98-107) meq/L Creatinine (0.50-1.00) mg/dL Estimated GFR 70 L (>89) mL/min Total Creatine Kinase (26-192) U/L CK-MB (CK-2) (0.5-3.6) ng/mL Troponin I (0.02-0.05) ng/mL Urine Clarity (Clear) Urine Protein (Neg-Trace) mg/dL Urine Urobilinogen (Less than 2) mg/dL Urine RBC (0-3) /hpf Amorphous Sediment (None) /hpf Urine Mucus (Occasional) /lpf Short CBC 05/16/18 05/17/18 Range/Units 21:50 07:23 WBC 7.7 7.8 (4.0-11.0) th/mm3 Hgb 9.6 L 9.0 L (11.6-15.3) gm/dL Hct 29.4 L 28.6 L (35.0-46.0) % Plt Count 304 D 275 (150-450) th/mm3 [facility] 05/16/18 05/17/18 21:50 03:55 Sodium 144 145 Potassium 3.5 3.7 Chloride 109 H 111 H Carbon Dioxide 22.5 23.5 BUN 16 13 Creatinine 1.24 H 0.95 Calcium 8.9 8.8 Cardiac Enzymes 05/16/18 05/17/18 Range/Units 21:50 03:55 Total Creatine Kinase 360 H 292 H (26-192) U/L CK-MB (CK-2) 4.7 H 3.3 (0.5-3.6) ng/mL Troponin I Less than 0.02 L Less than 0.02 L (0.02-0.05) ng/mL Liver Function 05/16/18 Range/Units 21:50 Total Bilirubin 0.5 (0.2-1.0) mg/dL AST 30 (15-37) U/L ALT 17 (10-53) U/L Alkaline Phosphatase 82 (45-117) U/L Albumin 3.6 (3.4-5.0) g/dL Urine 05/16/18 Range/Units 23:16 Urine Color Kera (Yellw/Straw) Urine Clarity Hazy H (Clear) Urine pH 5.0 (5.0-8.5) Ur Specific [place] 1.026 (1.002-1.035) Urine Protein 30 H (Neg-Trace) mg/dL Urine Glucose (UA) Negative (Negative) mg/dL - Imaging Impressions Chest X-Ray 05/16/18 21:21 CONCLUSION: 1. No acute cardiopulmonary disease. Head CT 05/16/18 21:23 CONCLUSION: 1. No acute cardiopulmonary disease demonstrated. 2. Atrophy and chronic white matter changes. . Venous Doppler Study 05/17/18 02:02 CONCLUSION: 1. DVT of the left lower extremity. 2. Superficial venous thrombosis of the right lower extremity involving the greater saphenous vein. CT pulmonary angiogram has been ordered. There is some question as to whether the patient has history of previous reaction to iodinated contrast and please investigate further. VQ scan versus CT pulmonary angiogram post premedication suggested as felt clinically indicated/applicable. Physical Exam Vital signs: Vital Signs 05/16/18 21:14 05/16/18 21:18 05/17/18 02:28 Temperature 99.6 F 98.6 F Pulse Rate 106 H 90 92 H Respiratory Rate 17 20 18 Blood Pressure 135/74 129/68 141/75 H Pulse Oximetry 97 99 05/17/18 04:00 05/17/18 07:50 05/17/18 08:00 Temperature 97.9 F 97.9 F Pulse Rate 86 83 Respiratory Rate 18 14 14 Blood Pressure 144/81 H 141/67 H Pulse Oximetry 96 99 05/17/18 09:29 Temperature Pulse Rate Respiratory Rate Blood Pressure Pulse Oximetry 99 Intake & Output 05/16/18 05/17/18 05/17/18 18:59 06:59 18:59 Intake Total 250 / 250 Balance 250 / 250 Weight 106.3 kg Intake: IV 250 / 250 NS Inj 250 ML @ Wide Open IV. 250 / 250 SIG BOLUS ONE Rx#:[id number] Other: # Voids 0 Date of Last Bowel Movement 05/15/18 Weight On Admission 86.183 kg Narrative: GENERAL: Elderly 72-year-old female lying in bed in no obvious distress, she does have a resting tremor of the right hand SKIN: Warm and dry. No rash. CARDIOVASCULAR: Regular rate and rhythm without obvious murmurs, gallops, or rubs. RESPIRATORY: Breath sounds equal bilaterally. No accessory muscle use. CTAB. GASTROINTESTINAL: Abdomen soft, nontender to palpation MUSCULOSKELETAL: No cyanosis. 1+ pitting edema up to knees bilaterally. NEURO/PSYCH: Alert and oriented only to person and place, unable to identify the year or month. Cranial nerves II through XII grossly intact. Diffusely weak in her upper and lower extremities symmetrically. Unable to raise either leg off of the bed. Unable to sit up without significant assistance. - Urinary Catheter Management Straight Cath placed during this visit: yes Reason for continuing: Not indwelling catheter Insertion date: 05/17/18 Insertion time: 18:00 Assessment and Plan - Assessment (1) Weakness Code(s): R53.1 - Weakness Status: Acute Plan: Generalized weakness that is likely multifactorial but appears to be from progressive physical decline ACS evaluation was negative with troponins negative x2, third troponin pending -EKGs with no significant changes -BNP within normal limits at 13 Infectious etiology unlikely as urinalysis and initial CBC are unremarkable -Chest x-ray unremarkable Electrolyte abnormality unlikely as BMP is within normal limits except for a chloride of 111 Mild dehydration with elevated creatinine on arrival, responded to fluid hydration with normalization of creatinine today-Chest x-ray showed no acute cardiopulmonary process Physical therapy ordered to evaluate patient, will likely need long-term placement -Case management consult placed to assist with placement -Hold risperidone and trihexyphenidyl as adverse reactions are weakness (2) DVT (deep venous thrombosis) Code(s): I82.409 - Acute embolism and thrombosis of unspecified deep veins of unspecified lower extremity Status: Acute Plan: Bilateral lower extremity ultrasound performed: -DVT in the left popliteal vein extending below the knee -Superficial thrombosis of the right lower extremity involving the greater saphenous vein Anticoagulation initiated with Lovenox 110 mg twice daily (1 mg/kg twice daily) -We will transition over to oral anticoagulation prior to discharge VQ scan order pending (3) Elevated d-dimer Code(s): R79.89 - Other specified abnormal findings of blood chemistry Status : Acute Plan: Likely secondary to DVT found with lower extremity ultrasound PE evaluation with VQ scan ordered and pending given patient's iodine allergy unable to obtain CTA -Wells Score of 3 indicating moderate risk -PERC Rule: PE cannot be ruled out -Tachycardic on presentation -Satting 97% on RA D-dimer 3.84 (4) Normocytic anemia Code(s): D64.9 - Anemia, unspecified Status: Acute Plan: Monitor with CBC and transfuse as needed (5) Elevated creatine kinase Code(s): R74.8 - Abnormal levels of other serum enzymes Status: Acute Plan: Continue to trend creatinine kinase. Likely due to recent sedentary state (6) MARCEL (acute kidney injury) Code(s): N17.9 - Acute kidney failure, unspecified Status: Acute Plan: Likely due to decreased oral intake and progressive physical decline at home -Normal saline at 125 mL an hour -Creatinine today 0.95 with GFR of 70, this is improved from arrival (7) Loose stools Code(s): R19.5 - Other fecal abnormalities Status: Acute Plan: Reported history of loose stools, evaluate with C. difficile toxin -Hold laxatives/stool softeners -Monitor I's and O's -Hydrate IV normal saline at 125 mL an hour (8) Tremor Code(s): R25.1 - Tremor, unspecified Status: Acute Plan: Patient reports history of tremors. On risperidone and trihexyphenidyl at home. -Hold as these medications can cause weakness (9) Hypertension Code(s): I10 - Essential (primary) hypertension Status: Acute Plan: Currently normotensive -Continue home diltiazem (2) DVT (deep venous thrombosis) Qualifiers: DVT location: lower extremity Affected thrombotic vein of extremity: popliteal Chronicity: acute Laterality: left Qualified Code(s): I82.432 - Acute embolism and thrombosis of left popliteal vein
[2018-05-17 11:11] LABS: CKMB Percent 1.1 % (0.0-4.0); Creatine Kinase MB 2.8 ng/mL (0.5-3.6)
--- NOTE | 2018-05-17 11:46 | NM ---
EXAM DATE: 05/17/2018 11:38 AM EST AGE/SEX: 72 years / Female INDICATIONS: Short of breath. CLINICAL DATA: This is the patient's initial encounter. Patient reports that signs and symptoms have been present for 1 day and indicates a pain score of 3/10. MEDICAL/SURGICAL HISTORY: Cardiovascular disease. Hypertension. None. COMPARISON: No prior exams available for comparison. DOSE: 0.6 mCi Tc99m DTPA aerosol 8.1 mCi Tc99m MAA IV TECHNIQUE: Following five minutes of tidal breathing of DTPA aerosol, planar images of the lungs wer e performed in eight projections. The patient was then injected with MAA, and eight-view perfusion s can was performed. FINDINGS: There is a homogeneous pattern of absolutely throughout the left lung. There is a focal ventilatory d efect in the right midlung. Otherwise, the aerosol pattern is symmetric. There is a small matched perfusion defect in the right midlung. The ventilation defect is worse than the perfusion defect. Otherwise, there is homogeneous tracer activity throughout both lung hsieh wit h no mismatched segmental or subsegmental defects. CONCLUSION: 1. Single matched defect in the right midlung. The ventilation defect is worse than the perfusion de fect. Otherwise, the VQ scan is unremarkable. This is a low probability for PE. Electronically signed by: Tk Mattson MD Board Certified Radiologist 05/17/2018 11:45 AM EST
--- NOTE | 2018-05-17 20:40 | ECG ---
Date Performed: 05/16/2018 Time Performed: 21:24:22 PTAGE: 72 years EKG: SINUS TACHYCARDIA MINIMAL VOLTAGE CRITERIA FOR LVH, CONSIDER NORMAL VARIANT ABNORMAL RHYTHM ECG PREVIOUS TRACING : 04/14/2018 20.04 DOCTOR: Lizzette Paniagua Interpretating Date/Time 05/17/2018 20:38:08
[2018-05-18] MEDS: Sod Chloride 0.9% Inj 1,000 ML IV.CONT SCH ×2 (02:31→10:29)
[2018-05-18] MEDS: Potassium Chloride 10 MEQ ER Capsule PO SCH (08:19)
[2018-05-18] MEDS: dilTIAZem CD 240 MG Capsule PO SCH (08:19)
[2018-05-18] MEDS: Enoxaparin Inj 120 MG/0.8 ML Syringe SQ SCH (08:20)
[2018-05-18 09:06] LABS: Baso # (Auto) 0.1 th/mm3 (0.0-0.2); Eos # (Auto) 0.2 th/mm3 (0.0-0.4); Eos % (Auto) 3.3 % (0.0-4.0); Hematocrit 28.8 % (35.0-46.0); Hemoglobin 9.2 gm/dL (11.6-15.3); Lymph # (Auto) 2.3 th/mm3 (1.0-4.8); Lymph % (Auto) 37.8 % (9.0-44.0); Mean Corpuscular HGB Conc 31.9 % (32.0-36.0); Mean Corpuscular Hemoglobin 30.1 pg (27.0-34.0); Mean Corpuscular Volume 94.5 fL (80.0-100.0); Mean Platelet Volume 8.1 fL (7.0-11.0); Mono # (Auto) 0.6 th/mm3 (0.0-0.9); Mono % (Auto) 9.2 % (0.0-8.0); Neut % (Auto) 48.7 % (16.0-70.0); Platelet Count 264 th/mm3 (150-450); Red Blood Count 3.05 mil/mm3 (4.00-5.30); Red Cell Distribution Width 15.3 % (11.6-17.2); White Blood Count 6.1 th/mm3 (4.0-11.0)
[2018-05-18 09:49] LABS: Anion Gap 10 meq/L (5-15); Blood Urea Nitrogen 10 mg/dL (7-18); Calcium 8.5 mg/dL (8.5-10.1); Carbon Dioxide 22.1 meq/L (21.0-32.0); Chloride 111 meq/L (98-107); Glomerular Filtration Rate Greater Than 89 mL/min (>89); Glucose,Random 77 mg/dL (74-106); Potassium 3.8 meq/L (3.5-5.1); Sodium 143 meq/L (136-145)
[2018-05-18 12:10] LABS: INR 1.2 Ratio
--- NOTE | 2018-05-18 12:11 | P.PNFP ---
Subjective Interval history: Vital stable overnight. No new complaints. Patient actually feels better this morning. Is sitting up in bed and eating breakfast. Denies lightheadedness, fatigue, or diarrhea. Lama was placed overnight due to concerns for possible urinary retention. Patient did not retain more than 400 cc of urine. <Silverio Martina Rao N - 05/18/18 12:11> Results - Labs Result diagrams: 05/18/18 07:58 05/18/18 07:58 <Tk Marion - 05/19/18 09:07> Abnormal lab results 05/18/18 05/18/18 Range/Units 07:58 11:23 PT 12.0 H (9.8-11.6) sec Chloride 111 H (98-107) meq/L [facility] 05/18/18 07:58 Sodium 143 Potassium 3.8 Chloride 111 H Carbon Dioxide 22.1 BUN 10 Creatinine 0.73 Calcium 8.5 <Tk Marion - 05/19/18 09:07> Abnormal lab results 05/18/18 05/18/18 Range/Units 07:58 07:58 RBC 3.05 L (4.00-5.30) mil/mm3 Hgb 9.2 L (11.6-15.3) gm/dL Hct 28.8 L (35.0-46.0) % MCHC 31.9 L (32.0-36.0) % [place] % (Auto) 9.2 H (0.0-8.0) % Chloride 111 H (98-107) meq/L Short CBC 05/18/18 Range/Units 07:58 WBC 6.1 (4.0-11.0) th/mm3 Hgb 9.2 L (11.6-15.3) gm/dL Hct 28.8 L (35.0-46.0) % Plt Count 264 (150-450) th/mm3 [facility] 05/18/18 07:58 Sodium 143 Potassium 3.8 Chloride 111 H Carbon Dioxide 22.1 BUN 10 Creatinine 0.73 Calcium 8.5 <Leighgeno Martina Rao N - 05/18/18 12:11> Physical Exam Vital signs: Vital Signs 05/18/18 11:30 05/18/18 15:30 Temperature 98.2 F 99.1 F Pulse Rate 74 87 Respiratory Rate 18 20 Blood Pressure 148/72 H 141/77 H Pulse Oximetry 96 98 Intake & Output 05/18/18 05/19/18 05/19/18 18:59 06:59 18:59 Intake Total 1999 Output Total 550 / 550 Balance 1450 / 1450 Intake: IV 1999 NS Inj 1,000 ML @ 125 mls/hr IV 1999 .CONT .Q8H ANDREW Rx#:[id number] Output: Urine 550 / 550 Other: Date of Last Bowel Movement 05/15/18 <Tk Marion - 05/19/18 09:07> Vital Signs 05/17/18 13:02 05/17/18 18:19 05/17/18 20:00 Temperature 98.1 F 97.7 F 98.2 F Pulse Rate 81 80 73 Respiratory Rate 16 18 18 Blood Pressure 133/63 134/61 126/64 Pulse Oximetry 95 98 97 05/17/18 20:14 05/17/18 20:15 05/18/18 00:00 Temperature 98.3 F Pulse Rate 80 Respiratory Rate 18 Blood Pressure 130/66 Pulse Oximetry 97 97 98 05/18/18 04:00 05/18/18 07:35 05/18/18 08:00 Temperature 97.9 F 98.3 F Pulse Rate 68 72 Respiratory Rate 18 20 20 Blood Pressure 154/82 H 168/74 H Pulse Oximetry 98 98 Intake & Output 05/17/18 05/18/18 05/18/18 18:59 06:59 18:59 Intake Total 1999 1000 / 1000 1000 / 1000 Output Total 300 / 300 410 / 410 Balance 1700 / 1700 590 / 590 1000 / 1000 Weight 111.1 kg Intake: IV 1999 1000 / 1000 1000 / 1000 NS Inj 1,000 ML @ 125 mls/hr IV 1999 1000 / 1000 1000 / 1000 .CONT .Q8H ANDREW Rx#:[id number] Output: Urine 300 / 300 410 / 410 Other: # Incontinent Voids 1 Date of Last Bowel Movement 05/15/18 05/15/18 05/15/18 <Martina Lazaro - 05/18/18 12:11> Narrative: GENERAL: Elderly 72-year-old female lying in bed in no obvious distress, she does have a resting tremor of the right hand SKIN: Warm and dry. No rash. CARDIOVASCULAR: Regular rate and rhythm without obvious murmurs, gallops, or rubs. RESPIRATORY: Breath sounds equal bilaterally. No accessory muscle use. CTAB. GASTROINTESTINAL: Abdomen soft, nontender to palpation MUSCULOSKELETAL: No cyanosis. 1+ pitting edema up to knees bilaterally. NEURO/PSYCH: No new focal deficits.Slight improvement in weakness. <Abid Martina Rao - 05/18/18 12:11> - Urinary Catheter Management Straight Cath placed during this visit: no <Tk Marion - 05/19/18 09:07> yes <Abid Martina Rao - 05/18/18 12:11> Reason for continuing: Acute urinary retention <Abid R2Martina [facility] 05/18/18 12 :11> Insertion date: 05/18/18 <Abid R2Martina [facility] 05/18/18 12:11> Insertion time: 05:00 <Abid Martina Rao [facility] 05/18/18 12:11> Assessment and Plan - Assessment (1) Weakness Code(s): R53.1 - Weakness Status: Acute (2) DVT (deep venous thrombosis) Code(s): I82.409 - Acute embolism and thrombosis of unspecified deep veins of unspecified lower extremity Status: Acute (3) Normocytic anemia Code(s): D64.9 - Anemia, unspecified Status: Acute (4) Elevated creatine kinase Code(s): R74.8 - Abnormal levels of other serum enzymes Status: Acute (5) MARCEL (acute kidney injury) Code(s): N17.9 - Acute kidney failure, unspecified Status: Resolved (6) Loose stools Code(s): R19.5 - Other fecal abnormalities Status: Resolved (7) Tremor Code(s): R25.1 - Tremor, unspecified Status: Acute (8) Hypertension Code(s): I10 - Essential (primary) hypertension Status: Acute <Tk Marion - 05/19/18 09:07> (1) Weakness Code(s): R53.1 - Weakness Status: Acute Plan: Generalized weakness that is likely multifactorial but appears to be from progressive physical decline Likely secondary to deconditioning and dehydration Physical therapy ordered to evaluate patient: Recommend SNF placement will continue rehab -Case management consult placed to assist with placement -Hold risperidone and trihexyphenidyl as adverse reactions are weakness (2) DVT (deep venous thrombosis) Code(s): I82.409 - Acute embolism and thrombosis of unspecified deep veins of unspecified lower extremity Status: Acute Plan: Bilateral lower extremity ultrasound performed: -DVT in the left popliteal vein extending below the knee -Superficial thrombosis of the right lower extremity involving the greater saphenous vein VQ scan shows no evidence of PE Anticoagulation initiated with Lovenox 110 mg twice daily (1 mg/kg twice daily) -We will transition to Xarelto today (3) Normocytic anemia Code(s): D64.9 - Anemia, unspecified Status: Acute Plan: Monitor with CBC and transfuse as needed (4) Elevated creatine kinase Code(s): R74.8 - Abnormal levels of other serum enzymes Status: Acute Plan: Continue to trend creatinine kinase. Likely due to recent sedentary state (5) MARCEL (acute kidney injury) Code(s): N17.9 - Acute kidney failure, unspecified Status: Resolved Plan: Likely due to decreased oral intake and progressive physical decline at home Resolved -DC normal saline at 125 mL an hour (6) Loose stools Code(s): R19.5 - Other fecal abnormalities Status: Resolved Plan: Reported history of loose stools, resolved (7) Tremor Code(s): R25.1 - Tremor, unspecified Status: Acute Plan: Patient reports history of tremors. On risperidone and trihexyphenidyl at home. -Hold as these medications can cause weakness (8) Hypertension Code(s): I10 - Essential (primary) hypertension Status: Acute Plan: Currently normotensive -Continue home diltiazem <Martina Lazaro N - 05/18/18 12:06> - Assessment and Plan Discharge Planning: [facility]charge today to [facility] facility <Martina Lazaro - 05/18/18 12:11> - Attending Attestation Pt. examined independently of resident physician on the morning of 05/18/2018 Pt. case was discussed with resident physician and I have read/agree with the assessment/plan as discussed with me I was involved in all medical decision making for this patient Tk Marion MD <Tk Marion - 05/19/18 09:07> <[facility] Last Filed: 05/18/18 12:06> (2) DVT (deep venous thrombosis) Qualifiers: DVT location: lower extremity Affected thrombotic vein of extremity: popliteal Chronicity: acute Laterality: left Qualified Code(s): I82.432 - Acute embolism and thrombosis of left popliteal vein <Tk Marion Filed: 05/19/18 09:07> (2) DVT (deep venous thrombosis) Qualifiers: DVT location: lower extremity Affected thrombotic vein of extremity: popliteal Chronicity: acute Laterality: left Qualified Code(s): I82.432 - Acute embolism and thrombosis of left popliteal vein <[place] [address]Martina Last Filed: 05/18/18 12:06> (2) DVT (deep venous thrombosis) Qualifiers: DVT location: lower extremity Affected thrombotic vein of extremity: popliteal Chronicity: acute Laterality: left Qualified Code(s): I82.432 - Acute embolism and thrombosis of left popliteal vein <Tk Marion Last Filed: 05/19/18 09:07> (2) DVT (deep venous thrombosis) Qualifiers: DVT location: lower extremity Affected thrombotic vein of extremity: popliteal Chronicity: acute Laterality: left Qualified Code(s): I82.432 - Acute embolism and thrombosis of left popliteal vein
[2018-05-18 16:29] VITALS: BP 141/77; PULSE 87; RESP 20; TEMP 99.1; O2SAT 98
== END 2018-05-18 16:49 | DRG 683 ==
LOC: NEPC 21:05 → NEDA 21:05 → N05 05-17 02:11
PROVIDERS: ADMIT Family Medicine; ATTEND Family Medicine
CPT/HCPCS: 70450; 71010; 71045; 76937; 78582; 80048; 80053; 81001; 82550; 82552; 82948; 82962; 83520; 83605; 83690; 83735; 83880; 84484; 85025; 85379; 85610; 85730; 86403; 87040; 87149; 87186; 87205; 87275; 87276; 87804; 90760; 93005; 93970; 96360; 97162; 97167; 99285; A9519; A9540; A9567; C1094; J1650; J2270; J7030; J7050; P9612